=== PATIENT | male | born 1960 | race Hispanic/Latino ===

== ENCOUNTER 2017-06-26 09:39 | Inpatient (IN) | payer OTHER ==
[~2017-06-26] VITALS: Ht 185.4 cm; Wt 103.0 kg
[~2017-06-26 09:39] MED LIST: EXFORGE 5 MG-161 TAB PO; GLYBURIDE2.5 MG PO; GLYBURIDE5 MG PO; JANUMET 1000 MG1 TAB PO; JANUVIA 100MG100 MG PO; JANUVIA 50MG50 MG PO; NORVASC 10MG10 MG PO; TENORMIN 12.512.5 MG PO; VYTORIN 10 MG-21 TAB PO
--- NOTE | 2017-06-26 10:55 | ED GENERAL ADULT ---
History of Present Illness General Chief Complaint: General Adult Stated Complaint: PT STATES" MY GROIN IS SWOLLEN AND PAINFUL" Source: patient, old records Exam Limitations: no limitations Vital Signs & Intake/Output Vital Signs & Intake/Output Vital Signs Date Time Temp Pulse Resp B/P B/P Pulse O2 O2 Flow FiO2 Mean Ox Delivery Rate 06/26 0951 97.3 100 16 144/74 98 Room Air Allergies Coded Allergies: NO KNOWN ALLERGIES (03/11/15) Reconcile Medications Amlodipine (Norvasc 10MG) 10 MG TAB 10 MG PO DAILY bp Atenolol (Tenormin 12.5MG Tab (1/2 Of 25MG)) 12.5 MG HTAB 50 MG PO DAILY hypertension Sitagliptin Phosphate (Januvia) 100 MG TAB 1 TAB PO DAILY DM Triage Note: 56M WITH SWELLING TO GROIN AND SCROTUM, OBSERVABLE THROUGH PANTS X1 WEEK. HX EPIDIDYMITIS. DENIES SWELLING TO PENIS OR DISCHARGE, DENIES DYSURIA OR HEMATURIA. PAIN 3/10, NOT ABLE TO VISUALIZE SITE IN TRIAGE. AFEBRILE Triage Nurses Notes Reviewed? yes Onset: 1 month Duration: week(s):, constant, continues in ED, getting worse Timing: recent history Injury Environment: home Severity: severe Modifying Factors: Worsens With: movement. HPI: 1 month prior to admission patient complains of increasing swelling to his lower extremities and eventually his scrotum. He denies fever chills nausea vomiting diarrhea abdominal pain chest pain shortness breath headache dysuria rash bleeding, Past History Travel History Traveled to [place] past 21 day No Medical History Any Pertinent Medical History? 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 No Review of Systems Review of Systems Constitutional: Reports: no symptoms. EENTM: Reports: no symptoms. Respiratory: Reports: no symptoms. Cardiovascular: Reports: see HPI, edema. GI: Reports: see HPI, bloating, distention. Genitourinary: Reports: see HPI. Musculoskeletal: Reports: no symptoms. Skin: Reports: no symptoms. Neurological/Psychological: Reports: no symptoms. Hematologic/Endocrine: Reports: no symptoms. Immunologic/Allergic: Reports: no symptoms. All Other Systems: Reviewed and Negative Physical Exam Physical Exam General Appearance: well developed/nourished, alert, awake, anxious, mild distress, obese Head: atraumatic, normal appearance Eyes: Bilateral: normal appearance, PERRL, EOMI. Ears, Nose, Throat: normal pharynx, normal ENT inspection, hearing grossly normal Neck: normal inspection, supple, full range of motion, no midline tenderness Respiratory: normal breath sounds, chest non-tender, no respiratory distress, quiet respiration, decreased breath sounds Cardiovascular: regular rate/rhythm, normal peripheral pulses, norml femoral pulses equa Peripheral Pulses: 4+ carotid (R), 4+ carotid (L) Gastrointestinal: normal bowel sounds, soft, non-tender, no organomegaly Back: normal inspection, normal range of motion Extremities: pedal edema, swelling Neurologic/Psych: no motor/sensory deficits, awake, alert, oriented x 3, normal gait, normal mood/affect, 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 Skin: intact, normal color, warm/dry Lymphatic: no anterior cervical dale Core Measures ACS in differential dx? No CVA/TIA Diagnosis: No Sepsis Present: No Sepsis Focused Exam Completed? No Progress Differential Diagnoses I considered the following diagnoses in my evaluation of the patient: Lymphedema volume overload CHF acute renal failure Plan of Care: Orders Procedure Date/time Status Renal Dialysis Diet 06/26 D Active URINE LYTES, SPOT 06/26 1516 Active URINALYSIS 06/26 1516 Active Patient Data 06/26 1331 Active TYPE & SCREEN (NOT X-MATCH) 06/26 1305 Complete Patient Data 06/26 1252 Active OXYGEN SETUP (GEN) 06/26 1217 Active Saline Lock 06/26 1217 Active Admit to inpatient 06/26 1217 Active Vital Signs 06/26 1217 Active Activity/Ambulation 06/26 1217 Active Code Status 06/26 1217 Active Alarcon, Insertion/Removal/Asses 06/26 121 Active CULTURE,URINE 06/26 121 Active HIV (Reflex to HIVCQ) 06/26 1120 Complete HEPATITIS PANEL 06/26 1120 Complete TROPONIN LEVEL 06/26 1039 Complete MAGNESIUM 06/26 1039 Complete COMPREHENSIVE METABOLIC PANEL 06/26 1039 Complete CBC WITHOUT DIFFERENTIAL 06/26 1039 Complete B-TYPE NATRIURETIC PEP (BNP) 06/26 1039 Complete EKG 06/26 1039 Active Intake & Output 06/26 0953 Active Lab Add-on Test 06/26 UNK Active Laboratory Tests 06/26/17 1120: Anion Gap 22 H, Estimated GFR 5 L, BUN/Creatinine Ratio 10.2, Glucose 147 H, Calcium 5.8 *L, Magnesium 1.5 L, Total Bilirubin 0.3, AST 10 L, ALT 32, Alkaline Phosphatase 84, Troponin I 0.07, Tce-B-Qlpndkxdlex Pept 11109 H, Total Protein 6.1 L, Albumin 3.0 L, Globulin 3.1, Albumin/Globulin Ratio 1.0 L, CBC w Diff MAN DIFF ORDERED, RBC 2.38 L, MCV 71.9 L, MCH 21.8 L, RDW 17.9 H, MPV 9.0, Gran % 87.2 H, Lymphocytes % 6.6 L, Monocytes % 4.3, Eosinophils % 1.6, Basophils % 0.3, Absolute Granulocytes 8.7 H, Absolute Lymphocytes 0.7 L, Absolute Monocytes 0.4, Absolute Eosinophils 0.2, Absolute Basophils 0, Platelet Estimate ADEQUATE, Hypochromic-Microcytic 3+, Poikilocytosis 3+, Basophilic Stippling RARE, Anisocytosis 3+, Ovalocytes RARE, PUBS MCHC 30.4 L, Hepatitis A IgM Ab NONREACTIVE, Hep Bs Antigen NONREACTIVE, Hep B Core IgM Ab Conf NONREACTIVE, Hepatitis C Antibody NONREACTIVE, HIV 1&2 Ab Western Blot NONREACTIVE Microbiology 06/26 1211 URINE ROUT: Urine Culture - ORD Diagnostic Imaging: Viewed by Me: Radiology Read. Discussed w/RAD: Radiology Read. Radiology Impression: 1. Diffuse prominent soft tissue anasarca, small volume intra-abdominal and pelvic ascites, retroperitoneal edema and bilateral small pleural effusions are seen, consistent with patient's volume overload status. 2. Colonic diverticulosis with no evidence of acute diverticulitis. 3. Moderate atherosclerotic vascular disease. 4. Densely calcified granuloma left lower lobe, unchanged. CXR Impression: Findings are suggestive of mild/evolving pulmonary edema. Initial ED EKG: normal axis, normal intervals, normal p-waves, normal QRS complex, normal sinus rhythm, nonspecific ST T wave chg Prior EKG: changed Rhythm Strip: normal sinus rhythm Departure Departure Time of Disposition: 1218 Disposition: STILL A PATIENT Condition: Stable Clinical Impression Primary Impression: Acute renal failure Secondary Impressions: Anasarca associated with disorder of kidney, Anemia Referrals: Jony MARQUES,Ej Cantu (PCP/Family) Departure Forms: Customer Survey General Discharge Information Admission Note Spoke With: Berry Gongora MD Documentation of Exam: Documentation of any treatments & extenuating circumstances including Concerns Regarding Discharge (functional status, medication knowledge or non-compliance, living conditions, etc.) that warrant an admission rather than observation: Renal evaluation serial lab exam medication adjustment Alarcon catheter continuing care discharge planning Critical Care Note Critical Care Note Critical Care Time: 30-74 min (35)
[2017-06-26 11:31] LABS: ABSOLUTE BASOPHIL COUNT 0 /CUMM (0.0-0.2); ABSOLUTE LYMPH COUNT 0.7 /CUMM (1.2-3.4); BASOPHIL % 0.3 % (0.0-2.0); MEAN CORPUSCULAR HGB 21.8 PG (27.0-31.0); RBC DISTRIBUTION WIDTH 17.9 % (11.5-14.5); RED BLOOD CELL CT 2.38 /CUMM (4.70-6.10)
[2017-06-26 11:37] LABS: ABSOLUTE EOSINOPHIL COUNT 0.2 /CUMM (0.0-0.7); ABSOLUTE GRANULOCYTE CT 8.7 /CUMM (1.4-6.5); ABSOLUTE MONOCYTE COUNT 0.4 /CUMM (0.10-0.60); EOSINOPHIL % 1.6 % (0-5); GRANULOCYTE % 87.2 % (42.2-75.2); MEAN CORPUSCULAR HGB CONC 30.4 G/DL (33.0-37.0); MEAN CORPUSCULAR VOLUME 71.9 FL (80.0-94.0); PLATELET COUNT 301 /CUMM (130-400); WHITE BLOOD CELL COUNT 9.9 /CUMM (4.8-10.8)
[2017-06-26 11:45] LABS: HEMATOCRIT 17.1 % (42-52)
--- NOTE | 2017-06-26 12:38 | RADIOLOGY REPORT ---
EXAMINATION: CR PORTABLE CHEST CLINICAL INFORMATION: Peripheral edema. History of chronic renal insufficiency, diabetes mellitus. Presumptive diagnosis of CHF. COMPARISON: Chest x-ray dated 03/11/2015. CT scan of the chest dated 03/12/2015. TECHNIQUE: Portable AP semierect view of the chest was obtained. FINDINGS: The cardiomediastinal silhouette is borderline enlarged, likely related to the AP technique of the film. Lungs bilaterally are symmetrically expanded and demonstrate slight central vascular congestion and perihilar reticular prominence, possibly due to mild/evolving pulmonary edema. No focal consolidation, effusion or pneumothorax is seen. Bony structures are unremarkable. IMPRESSION: Findings are suggestive of mild/evolving pulmonary edema.
--- NOTE | 2017-06-26 13:47 | CT SCAN REPORT ---
EXAMINATION: CT ABDOMEN AND PELVIS WITHOUT CONTRAST CLINICAL INFORMATION: Progressive anasarca with acute on chronic renal failure. Acute renal failure. COMPARISON: CT scan of the chest dated 03/12/2015. TECHNIQUE: Multidetector volumetric imaging was performed from the superior aspect of the liver through the pubic symphysis. Sagittal and coronal reformatted images were obtained on the technologist workstation. DLP: 1111.44 mGy-cm. FINDINGS: LUNG BASES: There are small bilateral layering pleural effusions with associated bilateral lower lobe atelectatic changes. Densely calcified granuloma seen in the left lower lobe. LIVER, GALLBLADDER, AND BILIARY TREE: The liver is normal in size, shape, and attenuation. No focal hepatic lesion on noncontrast imaging. No biliary ductal dilatation is present. There is new small volume ascites in the abdomen around the liver. The gallbladder is partially distended and is mildly thick-walled with pericholecystic edema seen, most likely secondary to the intra-abdominal ascites. PANCREAS: There is a small amount of peripancreatic edema seen, extending into the perinephric space, nonspecific, but presumably related to patient's volume overload status. SPLEEN: Unremarkable. ADRENAL GLANDS: Both adrenal glands are mildly hypertrophied with mild surrounding indistinctness of the fat. KIDNEYS AND URETERS: The kidneys are normal in size, shape, and attenuation. No hydronephrosis, hydroureter, or calculi seen. No perinephric stranding. BLADDER: Unremarkable. PELVIC VISCERA: Unremarkable. GASTROINTESTINAL TRACT: The small bowel loops are decompressed and unremarkable. Multiple scattered sigmoid colonic diverticula are seen with no evidence of acute diverticulitis. A few other scattered colonic diverticula are also seen, including right-sided diverticula. The colon is otherwise unremarkable. The appendix is unremarkable. ABDOMINAL WALL: There is diffuse prominent anasarca in the soft tissues. There is dilatation of the left inguinal ring, containing fat only, consistent with a small direct inguinal hernia. LYMPH NODES, VASCULAR: No abdominal or pelvic adenopathy is seen. There is a small volume of free fluid in the abdomen and pelvis. Atherosclerotic calcifications of the vessels is noted, including the VIV. OSSEOUS STRUCTURES: Several scattered sclerotic bone densities are seen in the pelvis, most consistent with benign bone islands. Multilevel degenerative changes are seen in the lower thoracic and in the mid and lower lumbar spine. IMPRESSION: 1. Diffuse prominent soft tissue anasarca, small volume intra-abdominal and pelvic ascites, retroperitoneal edema and bilateral small pleural effusions are seen, consistent with patient's volume overload status. 2. Colonic diverticulosis with no evidence of acute diverticulitis. 3. Moderate atherosclerotic vascular disease. 4. Densely calcified granuloma left lower lobe, unchanged.
--- NOTE | 2017-06-26 14:05 | History & Physical ---
April MARQUES,[facility] 06/26/17 1405: General Information and HPI MD Statement: I have seen and personally examined SHANI BERNAL and documented this H&P. The patient is a 56 year old M who presented with a patient stated chief complaint of [Leg and scrotal swelling]. 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 He presented with a one-month history of gradually worsening lower extremity swelling which progressed to involve the scrotum and lower abdomen. One month ago prior to onset of symptoms patient reported to have an upper respiratory infection with nasal congestion and rhinorrhea that resolved after 3 days. He subsequently started developing leg swelling starting in his feet that gradually progressed to involve his thighs and lower abdomen including his scrotum. He denied fevers, chills, fatigue, joint pains, dysuria, urethral discharge or change in his urine volume or color over this period. He denied abdominal pains, nausea or vomiting, diarrhea or bloody stools. He did note mild intermittent coughing since one month prior but denied wheeze, chest pain, difficulty breathing, palpitations, lightheadedness or syncope. He denies any recent change in his medications or using any yrww-ehn-iexaeyn medications. He denies headaches, numbness of any part of the body or weakness. He states that he feels fine except for slight discomfort in the scrotum due to massive scrotal edema which makes it difficult for him to wear his pants. Of note patient has chronic kidney disease and previous baseline creatinine was around 2.0. Allergies/Medications Allergies: Coded Allergies: NO KNOWN ALLERGIES (NONE 06/27/17) Home Med list Amlodipine (Norvasc 10MG) 10 MG TAB 10 MG PO DAILY bp Atenolol (Tenormin 12.5MG Tab (1/2 Of 25MG)) 12.5 MG HTAB 50 MG PO DAILY hypertension Sitagliptin Phosphate (Januvia) 100 MG TAB 1 TAB PO DAILY DM Past History Travel History Traveled to [place] past 21 day No Medical History Neurological: NONE EENT: NONE Cardiovascular: hypertension Respiratory: NONE Gastrointestinal: NONE Hepatic: NONE Renal: NONE Musculoskeletal: NONE Psychiatric: NONE Endocrine: diabetes Blood Disorders: NONE Cancer(s): 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 Exam & Diagnostic Data Last 24 Hrs of Vital Signs/I&O Vital Signs Date Time Temp Pulse Resp B/P B/P Pulse O2 O2 Flow FiO2 Mean Ox Delivery Rate 06/26 0951 97.3 100 16 144/74 98 Room Air Intake & Output 06/26 1600 06/26 0800 06/26 0000 Intake Total Output Total Balance Patient 235 lb Weight Weight Reported by Patient Measurement Method Physical Exam General Appearance Alert, Oriented X3, Cooperative, No Acute Distress Skin No Rashes, No Breakdown Skin Temp/Moisture Exam: Warm/Dry Sepsis Skin Exam (color): Normal for Ethnicity HEENT Atraumatic, PERRLA, EOMI, Mucous Membr. moist/pink Neck Supple, No JVD, No thryomegaly, +2 Carotid Pulse wo Bruit Lymphatic Cervical nl Cardiovascular Regular Rate, Normal S1, Normal S2, No Murmurs Lungs Clear to Auscultation, Normal Air Movement, REDUCED AIR ENTRY IN BOTH LUNG BASES Abdomen Normal Bowel Sounds, Soft, No Tenderness, No Hepatospenomegaly, No Masses, SACRAL EDEMA UP TO MID BACK Neurological Normal Speech, Strength at 5/5 X4 Ext, Normal Tone, Cranial Nerves 3-12 NL Extremities NEUROPATHIC ULCER ON LEFT SOLE OF FOOT Vascular Normal Pulses (DORSALIS PEDIS PULSE NORMAL), Pulses Symmetrical Diagnostic Data EKG Results Normal sinus rhythm. Heart rate [address] segment changes CXR Results Lungs bilaterally are symmetrically expanded and demonstrate slight central vascular congestion and perihilar reticular prominence, possibly due to mild/evolving pulmonary edema. No focal consolidation, effusion or pneumothorax is seen. Bony structures are unremarkable. IMPRESSION: Findings are suggestive of mild/evolving pulmonary edema. Other Results CT abdomen and pelvis shows prominent soft tissue anasarca small volume intra- abdominal ascites and retroperitoneal edema and bilateral small pleural effusions. 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 He presented with a one-month history of worsening anasarca and mild intermittent coughing. His vital signs are stable. However his creatinine is 10 and this is much worse than his previous baseline of around 2. He does appear to have an acute kidney injury in the setting of chronic kidney disease ( this likely represents progression of his diabetic kidney disease) He is fluid overloaded with mild pulmonary edema on chest X-ray. In addition he has anemia which could be mainly due to his chronic kidney disease with a component of hemodilution from fluid overload. A chronic GI bleed is also a possibility. He will be admitted to the ICU for close monitoring of his vital signs and diuresed aggressively with IV Lasix. We will Monitor his respiratory status as his chest x-ray showed mild pulmonary edema. He will be transfused with PRBCs. We will place him on fluid restriction and a renal dialysis diet. I spoke to nephrology garden consultant Pete Atwood MD and the plan is for aggressive diuresis and placement of an Jerome cath in the morning for hemodialysis. Problem list 1. Acute kidney injury on background chronic kidney disease vs end-stage renal disease * Admit to ICU for close monitoring * CT scan of his abdomen showed no sign of hydronephrosis or obstruction and the patient passes urine freely * Monitor fluid input and output closely * Alarcon catheter could not be placed due to massive scrotal and penile edema. Will consult urology to place a Alarcon catheter in the morning * Check bladder scan for post residual volume * Urine lytes, FENA * Send NAGA, ANCA, C3, C4 serology to investigate possible aetiology * His HIV and viral hepatitis panel screening was negative * Patient has metabolic acidosis and we will start him on PO Sodium bicarb 650 mg TID (Avoiding a bicarb drip as he is volume overloaded) * PO sevelemer 800 mg with meals * Replete magnesium X 1g * send labs for 25 OH vit D, Vit B12, folate, INR * Renal dialysis and diabetic diet * Consult IR for Ashcath placement in preparation for hemodialysis 2. Anasarca with fluid overload * Aggressive diuresis with IV lasix 40 mg Q 12 hours * Strict fluid input ouput charting * Daily weights * 1200 mls fluid restriction * Will order echocardiogram to review cardiac function as he did have a markedly elevated proBNP of [id number] (Albeit in the setting of renal failure which can give a spurious result) 3. Anemia-likely chronic * Rectal exam was guiac negative in the ER * Repeat stool guaic X2 more times * Send Iron studies * Transfuse with 1 unit PRBC * PLEASE GIVE IV LASIX 80 MG PUSH PRIOR TO BLOOD TRANSFUSION AND TRANSFUSE SLOWLY OVER [address] ATWOOD 3. Hypertension * Blood pressure is currently stable at 144/74 mmhg * Continue home medication of PO atenolol 12.5 mg daily and po amlodipine 10 mg daily 4. Diabetes mellitus * Hold januvia * Start novolog sliding scale low dose * ACCUCHEKS TIDAC * Watch for hypoglycemia due to renal failure and reduced insulin clearance * Patient has neuropathic ulcer on sole of left foot. Will apply xeroform dressing daily 5. DVT prophylaxis * SC heparin 5000 units Q 8 hrs 6. CODE STATUSfull code As Ranked By This Provider Problem List: 1. Anasarca associated with disorder of kidney 2. Anemia 3. Diabetes mellitus type 2 with complications 4. HTN (hypertension) 5. HLD (hyperlipidemia) 6. DVT prophylaxis 7. Full code status 8. Acute renal failure Core Measures/Misc (02/19) Acute Coronary Syndrome ACS Diagnosis: No Congestive Heart Failure Congestive Heart Failure Diagnosis No Cerebrovascular Accident CVA/TIA Diagnosis: No VTE (View Protocol) VTE Risk Factors Acute Medical Illness No Mechanical VTE Prophylaxis d/t N/A MechProphylax Ordered No VTE Pharm Prophylaxis d/t NA PharmProphylax ordered Sepsis (View protocol) Sepsis Present: No Kaela Parr MD 06/27/17 0806: Attending MD Review Statement Attending Statement Attending MD Statement: examined this patient, discuss w/resident/PA/FIELD ARTILLERY TARGETING TECHNICIAN, agreed w/resident/PA/FIELD ARTILLERY TARGETING TECHNICIAN, reviewed EMR data (avail), discussed with nursing, reviewed images
--- NOTE | 2017-06-26 18:23 | Cons- Nephrology ---
See Addendum General Information and HPI Consulting Request Date of Consult: 06/26/17 Requested By: Tessa Nunes MD Reason for Consult: Severe CKD/?AYLEEN Source of Information: patient, old records Exam Limitations: no limitations History of Present Illness: I have been asked to see this 56-year-old male because of severe renal failure. The patient presented to the emergency department today with a one to two-week history of rapidly increasing edema involving his lower extremities and genitals. He claims that he has had some degree of edema for at least several months but that it had markedly worsened recently. There is a history of chronic kidney disease with a serum creatinine of approximately 2.2 mg percent and what appeared to be high-grade proteinuria back in 2014 at which time he was referred by his PCP for renal evaluation. Unfortunately, he never pursued that or any other appointment and has also not followed up with his PCP. He denies having any blood work done recently. In the emergency department he was found to have a serum creatinine of 10 mg percent with a low CO2 level (12) but normal serum potassium. He specifically denies any fatigue, loss of appetite, nausea, vomiting, diarrhea, shortness of breath or chest pain. His only complaint is the edema. He also denies being exposed to any contrast or taking any NSAIDs or antibiotics. His medication regimen is as noted below (amlodipine, atenolol, Januvia) which does not include any medications known to adversely affect renal function. He also denies any difficulty in urination or decrease in urine output. CT scan without contrast done in the emergency department showed anasarca with normal size kidneys and no evidence for hydronephrosis. Chest x- ray suggested mild CHF. 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 EENTM: Reports: no symptoms. Cardiovascular: Reports: see HPI, edema. Respiratory: Reports: no symptoms. GI: Reports: no symptoms. Genitourinary: Reports: see HPI. Musculoskeletal: Reports: no symptoms. Skin: Reports: no symptoms. 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 Other Medical Hx: Charcot neuroarthropathy Surgical History Surgical History: non-contributory Family History Relations & Conditions If Any: FATHER FH: diabetes mellitus FH: HTN (hypertension) Psychosocial History Services at Home: None Smoking Status: Never Smoked ETOH Use: denies use Illicit Drug Use: denies illicit drug use Exam & Diagnostic Data Vital Signs and I&O Vital Signs Date Time Temp Pulse Resp B/P B/P Pulse O2 O2 Flow FiO2 Mean Ox Delivery Rate 06/27 1108 98.7 79 18 137/86 06/27 1108 98.7 79 18 137/86 06/27 1107 98.7 79 18 137/86 99 Room Air 06/27 0730 98.4 78 18 125/76 99 Room Air 06/27 0615 97.1 77 16 138/77 06/27 0415 77 16 135/88 97 Room Air 06/27 0324 97.5 77 20 133/87 97 Room Air 06/27 0255 97.1 78 16 139/87 97 Room Air 06/27 0020 84 133/82 06/26 2236 97.4 82 18 133/78 100 Room Air 06/26 2016 96.8 81 16 135/83 98 Room Air 06/26 1850 96.8 80 18 114/66 99 Room Air 06/26 1710 80 16 110/66 95 Room Air 06/26 1535 97.6 77 18 122/74 99 Room Air Intake & Output 06/27 1600 06/27 0400 06/26 1600 06/26 0400 06/25 1600 06/25 0400 Intake Total 60 Output Total 1100 1150 Balance -1040 -1150 Intake, Oral 60 Output, Urine 1100 1150 Patient 235 lb Weight Weight Reported by Patient Measurement Method Physical Exam: General: Well-developed white male in no acute distress Skin: No rash or jaundice HEENT: Conjunctivae pale, sclerae anicteric, mucous membranes moist Neck: Without masses or thyromegaly, no supraclavicular or cervical adenopathy Chest: Clear to P&A Heart: Regular rate and rhythm without S3 or rub Abdomen: Soft and nontender without palpable masses or organomegaly Extremities: 4+ lower extremity edema to the thighs and scrotum and penis as well as presacral edema Neuro: Awake, alert and oriented without focal findings, no asterixis or myoclonus Assessment/Plan Assessment/Recommendations Assessment: 56-year-old man with severe renal failure and metabolic acidosis clinically manifested primarily by the development of anasarca including severe lower extremity, scrotal and penile edema. Despite the numbers, he is remarkably free of any uremic symptomatology and although the chest x-ray suggests pulmonary circuit volume overload, he denies any shortness of breath at rest, with exertion or any orthopnea. Imaging study shows no evidence of an obstructive process and there is nothing in his history to suggest a recent acute insult either hemodynamically or pharmacologically. I suspect that what we are seeing here is progression of underlying diabetic nephropathy to end-stage renal disease. I do not believe that he needs urgent hemodialysis at this moment but, barring any unexpected reversibility, this will likely become necessary within the next few days. Recommendations: 1. Alarcon catheter. 2. 24-hour urine for protein and creatinine 3. Serologic evaluation as discussed with medical house staff 4. Check PTH and 25-hydroxy vitamin D levels 5. Anemia workup including assessing for GI bleeding 6. Diet: 60 g protein, 2 g sodium, 2 g potassium, no concentrated sweets, 1200 mL fluid limit per day 7. Okay to transfuse 1-2 units of packed RBCs over 4 hours for each unit with Lasix coverage 80 mg IV for each unit 8. Would continue Lasix even after transfusions at a dose of 40-80 mg IV every 12 hours 9. Arrange for a tunneled dialysis catheter to be placed by IR tomorrow with goal of initiating dialysis the following day 10. Begin Nephro-Arabella 1 by mouth daily and sevelamer 800 mg by mouth 3 times a day with meals 11. I will order Epogen with dialysis starting this coming Monday Thank you. Will follow along with you.
[2017-06-26 18:41] LABS: PT 14.2 SEC (9.4-12.5)
[2017-06-27 00:25] LABS: ABSOLUTE BASOPHIL COUNT 0 /CUMM (0.0-0.2); ABSOLUTE EOSINOPHIL COUNT 0.1 /CUMM (0.0-0.7); MEAN CORPUSCULAR HGB 22.3 PG (27.0-31.0); MEAN CORPUSCULAR HGB CONC 30.4 G/DL (33.0-37.0); MEAN CORPUSCULAR VOLUME 73.3 FL (80.0-94.0); WHITE BLOOD CELL COUNT 8.7 /CUMM (4.8-10.8)
[2017-06-27 00:33] LABS: ABSOLUTE MONOCYTE COUNT 0.6 /CUMM (0.10-0.60); BASOPHIL % 0.5 % (0.0-2.0); EOSINOPHIL % 1.1 % (0-5); GRANULOCYTE % 80.3 % (42.2-75.2); MEAN PLATELET VOLUME 9.3 FL (7.4-10.4); PLATELET COUNT 291 /CUMM (130-400); RBC DISTRIBUTION WIDTH 18.3 % (11.5-14.5); RED BLOOD CELL CT 2.58 /CUMM (4.70-6.10)
[2017-06-27 00:39] LABS: HEMATOCRIT 18.9 % (42-52)
--- NOTE | 2017-06-27 07:34 | PN- Resident CRCU ---
See Addendum Subjective HPI/CRCU Issues: Severe Renal Failure, possible ESRD Metabolic Acidosis Severe Anemia 24 Hour Events: No acute overnight events. He is s/p two units PRBC. His repeat H&H continue to be low. Scheduled for a 3rd unit of PRBC. Also scheduled for tunnel AshCat for dialysis tomorrow. Had a frazier placed today by urology. Rested comfortably overnight. Patient was seen and examined. Does not offer any complaints. Objective Vital Signs & I&O Last 8 Hrs of Vitals and I&O: Intake & Output 06/27 1600 Intake Total 60 Output Total 400 Balance -340 Intake, Oral 60 Output, Urine 400 Exam General Appearance: no apparent distress, alert, awake, comfortable Head: atraumatic, normal appearance Respiratory: normal breath sounds, chest non-tender, lungs clear Cardiovascular: regular rate/rhythm Gastrointestinal: normal bowel sounds, soft, non-tender Extremities: bilateral 4+ lower extremity edema up to the groin. Cranial Nerves: normal hearing, normal speech Skin: ulcer on sole of left foot. Skin Temp/Moisture Exam: Warm/Dry Sepsis Skin Exam (color): Normal for Ethnicity Current Medications: Current Medications Sig/Bipin Start time Last Medication Dose Route Stop Time Status Admin Acetaminophen 650 MG Q6P PRN 06/26 1745 AC PO Amlodipine Besylate 10 MG DAILY 06/27 1000 AC PO Atenolol 12.5 MG DAILY 06/27 1000 AC 06/27 PO 1108 Fentanyl Citrate 0 .STK-MED ONE 06/27 1307 DC .ROUTE Furosemide 80 MG BID 06/27 1307 AC IV Furosemide 0 .STK-MED ONE 06/27 0256 DC IV Furosemide 0 .STK-MED ONE 06/26 1835 DC IV Furosemide 40 MG 7:30 AM, & 4:30 PM 06/26 1745 AC 06/27 IV 0309 Furosemide 80 MG ONCE PRN 06/26 1745 AC 06/26 IV 1843 Heparin Sodium 0 .STK-MED ONE 06/27 1229 DC (Porcine) IV Heparin Sodium 0 .STK-MED ONE 06/26 2300 DC (Porcine) .ROUTE Heparin Sodium 5,000 UNIT Q8 06/26 2200 DC 06/26 (Porcine) SC 2259 Insulin Aspart 0 TIDAC 06/27 0800 AC SC Lidocaine 0 .STK-MED ONE 06/27 1229 DC .ROUTE Magnesium Sulfate 1 GM ONCE ONE 06/27 1045 AC 06/27 Dextrose/Water 100 ML IV 06/27 1444 1102 Magnesium Sulfate 1 GM ONCE ONE 06/26 1745 DC 06/26 Dextrose/Water 100 ML IV 06/264 2148 Morphine Sulfate 2 MG Q4P PRN 06/26 174 AC IV Sevelamer Carbonate 800 MG WM 06/26 1745 AC 06/27 PO 1133 Sodium Bicarbonate 650 MG TID 06/26 1745 AC 06/27 PO 1108 Impression/Plan Impression/Problem List Impression: 56yo man with a past medical history of hypertension, hyperlipidemia, acute chronic injury on chronic kidney disease, and charcot's neuropathy with chronic left foot ulcer presented with a one-month history of worsening anasarca and mild intermittent coughing. On admission his creatinine was found to be 10 which has worsened from his previous baseline around 2. He does appear to have an acute kidney injury in the setting of chronic kidney disease with fluid overload. Assessment and Plan: Acute kidney injury on chronic kidney disease/?ESRD: * Continue ICU for close monitoring * CT scan of his abdomen 06/26 showed no sign of hydronephrosis or obstruction and the patient is able to pass urine freely * Monitor fluid input and output closely * Frazier was placed in today by Urology. * Patient complains of significant pain from his catheter. He wishes to have it removed. He was explained the importance of leaving it in. * Will provide analgesia with morphine 2mg q6 prn. * His HIV and viral hepatitis panel screening was negative. * Will follow serologies. * PO sevelemer 800 mg with meals * Replete electrolytes as necessary. * Appreciate Nephro recs. * Renal dialysis and diabetic diet * Scheduled for AshCath placement by IR today with dialysis tomorrow. Anasarca with fluid overload: * Aggressive diuresis with IV lasix 80 mg q12. * Strict I&Os * Daily weights * 1200 mls fluid restriction * Echocardiogram - pending. He had significantly elevated proBNP. His kidney disease could contribute to elevation due to reduced clearance. Anemia: * likely chronic secondary to CKD * s/p 2 units PRBC today. Repeat Hb is 6.8. * Scheduled for 3rd unit of pRBC today after placement of catheter. Will obtain repeat CBC after transfusion. * Will start Epogen with dialysis from tomorrow. * Stool guiac was negative. * Iron studies show low iron with normal Ferritin and TIBC History of Hypertension * Continue atenolol 12.5 mg daily and amlodipine 10 mg daily Diabetes mellitus * Hold januvia * Continue novolog sliding scale low dose * ACCUCHEKS TIDAC * Watch for hypoglycemia due to renal failure and reduced insulin clearance. Diet: * Renal/Diabetic diet * 60 g protein, 2 g sodium, 2 g potassium, no concentrated sweets, 1200 mL fluid limit per day DVT prophylaxis * SC heparin 5000 units Q 8 hrs CODE STATUSfull code Problem List: 1. Anemia Pain Ratin Tomorrow's Labs & Rationales: CBC, ICU bundle Plan DVT/Prophylaxis: mechanical
--- NOTE | 2017-06-27 08:07 | Admission Certification ---
Admission Certification Certification Statement - As attending physician, I certify that at the time of - admission, based on clinical presentation, severity of - symptoms, need for further diagnostic testing and - therapeutic interventions, and risk of adverse outcomes - without in-hospital treatment, in my clinical assessment, - this patient requires an acute hospital stay for a minimum - of two nights or longer. I have also considered psychsocial - factors such as support system, advanced age, financial - issues, cognitive issues, and failed out-patient treatments, - past re-admission history, safety of patient, and lack of - compliance as applicable. Specific rationale supporting this admission is: Renal failure. Patient needs ICU management and dialysis.
[2017-06-27 09:52] LABS: ABSOLUTE BASOPHIL COUNT 0 /CUMM (0.0-0.2); ABSOLUTE EOSINOPHIL COUNT 0.1 /CUMM (0.0-0.7); ABSOLUTE GRANULOCYTE CT 7.6 /CUMM (1.4-6.5); ABSOLUTE LYMPH COUNT 0.8 /CUMM (1.2-3.4); ABSOLUTE MONOCYTE COUNT 0.5 /CUMM (0.10-0.60); BASOPHIL % 0.4 % (0.0-2.0); GRANULOCYTE % 84.1 % (42.2-75.2); MEAN CORPUSCULAR HGB CONC 30.8 G/DL (33.0-37.0); MEAN CORPUSCULAR VOLUME 74.7 FL (80.0-94.0); PLATELET COUNT 289 /CUMM (130-400); RBC DISTRIBUTION WIDTH 17.5 % (11.5-14.5); RED BLOOD CELL CT 2.95 /CUMM (4.70-6.10); WHITE BLOOD CELL COUNT 9.1 /CUMM (4.8-10.8)
--- NOTE | 2017-06-27 13:05 | PN- Nephrology ---
Assessment/Plan Assessment: 1. Severe renal failure without overt uremia but with anasarca - suspect ESRD secondary to progressive diabetic nephropathy 2. Metabolic acidosis 3. Severe anemia primarily secondary to ESRD but other potential contributing factors need to be explored Suggestion: 1. Proceed with placement of a tunneled dialysis catheter today in anticipation of dialysis initiation tomorrow 2. Lasix 80 mg IV every 12 hours 3. Evaluation as outlined and discussed Subjective Subjective: Patient had Alarcon catheter placed by urology earlier today. He continues to deny any shortness of breath, chest pain, nausea or vomiting. No improvement in renal function based on blood work this morning. Objective Vital Signs and I&Os Vital Signs Date Time Temp Pulse Resp B/P B/P Pulse O2 O2 Flow FiO2 Mean Ox Delivery Rate 06/27 1108 98.7 79 18 137/86 06/27 1108 98.7 79 18 137/86 06/27 1107 98.7 79 18 137/86 99 Room Air 06/27 0730 98.4 78 18 125/76 99 Room Air 06/27 0615 97.1 77 16 138/77 06/27 0415 77 16 135/88 97 Room Air 06/27 0324 97.5 77 20 133/87 97 Room Air 06/27 0255 97.1 78 16 139/87 97 Room Air 06/27 0020 84 133/82 06/26 2236 97.4 82 18 133/78 100 Room Air 06/26 2015 96.8 81 16 135/83 98 Room Air 06/26 1850 96.8 80 18 114/66 99 Room Air 06/26 1710 80 16 110/66 95 Room Air 06/26 1535 97.6 77 18 122/74 99 Room Air Intake & Output 06/27 1600 06/27 0400 06/26 1600 06/26 0400 06/25 1600 06/25 0400 Intake Total 60 Output Total 1100 1150 Balance -1040 -1150 Intake, Oral 60 Output, Urine 1100 1150 Patient 235 lb Weight Weight Reported by Patient Measurement Method Physical Exam: General: Well-developed white male in no acute distress Skin: No rash or jaundice HEENT: Conjunctivae pale, sclerae anicteric, mucous membranes moist Neck: Without masses or thyromegaly, no supraclavicular or cervical adenopathy Chest: Clear to P&A Heart: Regular rate and rhythm without S3 or rub Abdomen: Soft and nontender without palpable masses or organomegaly Extremities: 4+ lower extremity edema to the thighs and scrotum and penis as well as presacral edema Neuro: Awake, alert and oriented without focal findings, no asterixis or myoclonus Results Pertinent Lab Results: Laboratory Tests 06/27 06/27 0937 0500 Chemistry Sodium (137 - 145 mmol/L) 146 H Potassium (3.5 - 5.1 mmol/L) 4.7 Chloride (98 - 107 mmol/L) 114 H Carbon Dioxide (22 - 30 mmol/L) 12 L Anion Gap (5 - 16) 20 H BUN (9 - 20 mg/dL) 98 H Creatinine (0.7 - 1.2 mg/dL) 10.2 *H Estimated GFR (>60 ml/min) 5 L Glucose (65 - 99 mg/dL) 112 H Hemoglobin A1c (4.2 - 5.8 %) Pending Cancelled Calcium (8.4 - 10.2 mg/dL) 6.4 L Phosphorus (2.5 - 4.5 mg/dL) 8.2 H Magnesium (1.6 - 2.3 mg/dL) 1.6 Total Bilirubin (0.2 - 1.3 mg/dL) 1.0 AST (17 - 59 U/L) 9 L ALT (21 - 72 U/L) 26 Albumin (3.5 - 5.0 g/dL) 3.0 L Hematology CBC w Diff MAN DIFF ORDERED Cancelled WBC (4.8 - 10.8 /CUMM) 9.1 Cancelled RBC (4.70 - 6.10 /CUMM) 2.95 L Cancelled Hgb (14.0 - 18.0 G/DL) 6.8 *L Cancelled Hct (42 - 52 %) 22.0 L Cancelled MCV (80.0 - 94.0 FL) 74.7 L Cancelled MCH (27.0 - 31.0 PG) 23.0 L Cancelled RDW (11.5 - 14.5 %) 17.5 H Cancelled Plt Count (130 - 400 /CUMM) 289 Cancelled MPV (7.4 - 10.4 FL) 9.0 Cancelled Gran % (42.2 - 75.2 %) 84.1 H Lymphocytes % (20.5 - 51.1 %) 8.9 L Monocytes % (1.7 - 9.3 %) 5.6 Eosinophils % (0 - 5 %) 1.0 Basophils % (0.0 - 2.0 %) 0.4 Absolute Granulocytes (1.4 - 6.5 /CUMM) 7.6 H Absolute Lymphocytes (1.2 - 3.4 /CUMM) 0.8 L Absolute Monocytes (0.10 - 0.60 /CUMM) 0.5 Absolute Eosinophils (0.0 - 0.7 /CUMM) 0.1 Absolute Basophils (0.0 - 0.2 /CUMM) 0 Platelet Estimate (ADEQUATE) VERIFIED BY SMEAR Polychromasia 1+ Hypochromic-Microcytic 2+ Poikilocytosis 2+ Anisocytosis 1+ Microcytic Cells 1+ Ovalocytes 1+ Grimes Cells 1+ PUBS MCHC (33.0 - 37.0 G/DL) 30.8 L Cancelled 06/27 06/26 0008 2220 Chemistry Sodium (137 - 145 mmol/L) 146 H Potassium (3.5 - 5.1 mmol/L) 4.8 Chloride (98 - 107 mmol/L) 114 H Carbon Dioxide (22 - 30 mmol/L) 13 L Anion Gap (5 - 16) 20 H BUN (9 - 20 mg/dL) 108 *H Creatinine (0.7 - 1.2 mg/dL) 10.0 *H Estimated GFR (>60 ml/min) 5 L Glucose (65 - 99 mg/dL) 131 H Calcium (8.4 - 10.2 mg/dL) 6.2 L Phosphorus (2.5 - 4.5 mg/dL) 7.8 H Magnesium (1.6 - 2.3 mg/dL) 1.7 Total Bilirubin (0.2 - 1.3 mg/dL) 0.6 AST (17 - 59 U/L) 18 ALT (21 - 72 U/L) 36 Albumin (3.5 - 5.0 g/dL) 3.0 L Hematology CBC w Diff MAN DIFF ORDERED WBC (4.8 - 10.8 /CUMM) 8.7 RBC (4.70 - 6.10 /CUMM) 2.58 L Hgb (14.0 - 18.0 G/DL) 5.7 *L Hct (42 - 52 %) 18.9 *L MCV (80.0 - 94.0 FL) 73.3 L MCH (27.0 - 31.0 PG) 22.3 L RDW (11.5 - 14.5 %) 18.3 H Plt Count (130 - 400 /CUMM) 291 MPV (7.4 - 10.4 FL) 9.3 Gran % (42.2 - 75.2 %) 80.3 H Lymphocytes % (20.5 - 51.1 %) 11.7 L Monocytes % (1.7 - 9.3 %) 6.4 Eosinophils % (0 - 5 %) 1.1 Basophils % (0.0 - 2.0 %) 0.5 Absolute Granulocytes (1.4 - 6.5 /CUMM) 7.0 H Segmented Neutrophils (42.2 - 75.2 %) 78 H Absolute Lymphocytes (1.2 - 3.4 /CUMM) 1.0 L Lymphocytes (20.5 - 51.1 %) 19 L Monocytes (1.7 - 9.3 %) 3 Absolute Monocytes (0.10 - 0.60 /CUMM) 0.6 Absolute Eosinophils (0.0 - 0.7 /CUMM) 0.1 Absolute Basophils (0.0 - 0.2 /CUMM) 0 Nucleated RBCs (0.0 - 0.0 /100WBC) 2 H Platelet Estimate (ADEQUATE) ADEQUATE Hypochromic-Microcytic 2+ Poikilocytosis 2+ Ovalocytes 2+ PUBS MCHC (33.0 - 37.0 G/DL) 30.4 L Urines Urinalysis MOD H Urine Color (YEL,AMB,STR) YEL Urine Clarity (CLEAR) CLDY H Urine pH (5.0 - 8.0) 5.5 Ur Specific [place] (1.001 - 1.035) 1.020 Urine Protein (NEG,<30 MG/DL) 100 H Urine Ketones (NEG) NEG Urine Nitrite (NEG) NEG Urine Bilirubin (NEG) NEG Urine Urobilinogen (0.1 - 1.0 EU/dl) 0.2 Ur Leukocyte Esterase (NEG) SMALL H Ur Microscopic SEDIMENT EXAMINED Urine RBC (0 - 5 /HPF) FEW H Urine WBC (0 - 2 /HPF) RARE Ur Epithelial Cells (NONE,FEW) RARE Urine Bacteria (NEG/NONE) RARE H Urine Hemoglobin (NEG) SMALL H Urine Glucose (N MG/DL) NEG 06/26 06/26 06/26 2220 1814 1120 Chemistry Sodium (137 - 145 mmol/L) 148 H Potassium (3.5 - 5.1 mmol/L) 4.5 Chloride (98 - 107 mmol/L) 114 H Carbon Dioxide (22 - 30 mmol/L) 12 L Anion Gap (5 - 16) 22 H BUN (9 - 20 mg/dL) 102 *H Creatinine (0.7 - 1.2 mg/dL) 10.0 *H Estimated GFR (>60 ml/min) 5 L BUN/Creatinine Ratio (7 - 25 %) 10.2 Glucose (65 - 99 mg/dL) 147 H Calcium (8.4 - 10.2 mg/dL) 5.8 *L Phosphorus (2.5 - 4.5 mg/dL) 7.3 H Magnesium (1.6 - 2.3 mg/dL) 1.5 L Iron (49 - 181 ug/dL) 24 L TIBC (261 - 462 ug/dL) 368 Ferritin (17.9 - 464 ng/mL) 24.6 Total Bilirubin (0.2 - 1.3 mg/dL) 0.3 AST (17 - 59 U/L) 10 L ALT (21 - 72 U/L) 32 Alkaline Phosphatase (< 127 U/L) 84 Troponin I (<0.11 ng/ml) 0.07 Beg-K-[id number] Pept (<125 pg/mL) 95830 H Total Protein (6.3 - 8.2 g/dL) 6.1 L Albumin (3.5 - 5.0 g/dL) 3.0 L Globulin (1.9 - 4.2 gm/dL) 3.1 Albumin/Globulin Ratio (1.1 - 2.2 %) 1.0 L Vitamin B12 (239 - 931 pg/mL) > 1000 H 25-OH Vitamin D Total (30 - 100 ng/ml) 13.0 L Folate (2.76 - 20.0 ng/mL) 15.3 Coagulation PT (9.4 - 12.5 SEC) 14.2 H INR (0.90 - 1.17) 1.36 H Hematology CBC w Diff MAN DIFF ORDERED WBC (4.8 - 10.8 /CUMM) 9.9 RBC (4.70 - 6.10 /CUMM) 2.38 L Hgb (14.0 - 18.0 G/DL) 5.2 *L Hct (42 - 52 %) 17.1 *L MCV (80.0 - 94.0 FL) 71.9 L MCH (27.0 - 31.0 PG) 21.8 L RDW (11.5 - 14.5 %) 17.9 H Plt Count (130 - 400 /CUMM) 301 MPV (7.4 - 10.4 FL) 9.0 Gran % (42.2 - 75.2 %) 87.2 H Lymphocytes % (20.5 - 51.1 %) 6.6 L Monocytes % (1.7 - 9.3 %) 4.3 Eosinophils % (0 - 5 %) 1.6 Basophils % (0.0 - 2.0 %) 0.3 Absolute Granulocytes (1.4 - 6.5 /CUMM) 8.7 H Absolute Lymphocytes (1.2 - 3.4 /CUMM) 0.7 L Absolute Monocytes (0.10 - 0.60 /CUMM) 0.4 Absolute Eosinophils (0.0 - 0.7 /CUMM) 0.2 Absolute Basophils (0.0 - 0.2 /CUMM) 0 Platelet Estimate (ADEQUATE) ADEQUATE Hypochromic-Microcytic 3+ Poikilocytosis 3+ Basophilic Stippling RARE Anisocytosis 3+ Ovalocytes RARE PUBS MCHC (33.0 - 37.0 G/DL) 30.4 L Immunology NAGA Titer ND Anti-Nuclear Antibody (NEG,1:40) NEG 1:40 IFA ASSAY ANCA Pending Complement C3 Pending Complement C4 Pending Serology Hepatitis A IgM Ab (NONREACTIVE) NONREACTIVE Hep Bs Antigen (NONREACTIVE) NONREACTIVE Hep B Core IgM Ab Conf (NONREACTIVE) NONREACTIVE Hepatitis C Antibody (NONREACTIVE) NONREACTIVE HIV 1&2 Ab Western Blot (NONREACTIVE) NONREACTIVE Urines Ur Random Creatinine (mg/dL) 58.0 Ur Random Sodium (30 - 90 mmol/L) 68 Ur Random Potassium (mmol/L) 20.8 Fraction Sodium Excret (<1% %) 7.9 H
--- NOTE | 2017-06-27 14:50 | ULTRASOUND REPORT ---
CLINICAL HISTORY: This patient is a 56 years old Male with ESRD, who presents to Interventional Radiology for placement of a tunneled central venous catheter for hemodialysis. PROCEDURES: 1. Real-time ultrasound-guided access into the right internal jugular vein after documentation of selected vessel patency, and permanent imaging storing in the patient records. 2. Placement of a tunneled 16-Fr 28 cm dual lumen central venous catheter. PHYSICIANS: Dr. Kateryna Kline (attending). MONITORING: The procedure was performed with continuous blood pressure, pulse oximetry as well as heart rate monitoring was performed by an independent registered nurse. MEDICATIONS: 1. Versed 0 mg, fentanyl 50 mcg IV were administered. 2. Lidocaine 1%, 3 mL SQ. 3. Lidocaine 1%, 10 mL with epinephrine SQ. CONTRAST: None FLUOROSCOPY TIME: 0.7 minutes NUMBER OF IMAGES: 3 COMPLICATIONS: None ESTIMATED BLOOD LOSS: <50 mL SPECIMENS: None IMPLANT: Split cath III double lumen hemodialysis catheter SITE MARKING: As part of the preprocedure verification policy, a site marking procedure was initiated. Due to the nature the procedure, the insertion site could not be predetermined thus invoking the policy of exemption to site laterality and marking. Insertion site marking was performed in the procedure room in conjunction with imaging confirmation. PROCEDURE NOTE: Informed consent was obtained from the patient prior to the procedure. During this process, the procedure and potential alternatives were explained along with the intended outcome and benefits. The risks of the procedure, including the possibility of an unsuccessful procedure, as well as the risk of not doing the procedure, were discussed. The patient was given the opportunity to ask questions regarding the procedure and appeared competent to make decisions. A signed consent form documenting this discussion was placed in the medical record. A time-out procedure was performed. The patient was placed supine on the fluoroscopy table. All elements of maximal sterile barrier technique followed including use of cap, mask, sterile gown, sterile gloves, a sterile full body drape and hand hygiene. Also followed skin preparation with 2% chlorhexidine for cutaneous antisepsis, and sterile ultrasound preparation with sterile gel and probe cover when applicable. Local anesthesia was administered to the access site with lidocaine. The right internal jugular vein was accessed using ultrasound with a micropuncture Micropuncture set. A 0.018 wire was advanced into the high right atrium for measuring purposes. The 0.018 wire was subsequently exchanged for a 0.035 J wire that was advanced to the IVC to maintain access during the tunneling process. Next, subcutaneous lidocaine was administered to the chest, and a subcutaneous tunnel that connects to the venotomy site was created using blunt dissection. The dialysis catheter was sized for the correct tunnel length. The catheter was then pulled through the tunnel. The sheath in the IJ was exchanged over the wire for sequential dilators and lastly a peel-away sheath. The inner dilator and J wire were removed, and the catheter was advanced through the sheath. The sheath was peeled away. The catheter was tested, flushed, packed with heparin and sutured to the skin with its tip in the high right atrium. A Biopatch and sterile dressing were applied. Dermabond was utilized to close the dermatotomy at the neck. The patient tolerated the procedure well. FINDINGS: 1. Patent right internal jugular vein. 2. Tip of catheter in the high right atrium. 3. Catheter flushes and aspirates very well with a 10 mL syringe. 4. No pneumothorax. IMPRESSION: Successful and uncomplicated placement of a tunneled hemodialysis catheter. PLAN: 1. The patient was stable after the procedure and was transferred to the interventional recovery area. The patient will be transferred to the floor. 2. The catheter may be used immediately. 3. The suture securing the catheter should remain in place for 4 weeks or greater.
--- NOTE | 2017-06-27 16:47 | Cons- Urology ---
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 He denied any urologic history of UTIs or kidney stones. He has never been to an Urologist for any voiding issues. He did not notice any change in his urination over the last month or any difficulty with voiding. There is a history of chronic kidney disease with a serum creatinine of 2.2. Upon admission , he was found to have a serum creatinine of 10. He specifically denies any fatigue, loss of appetite, nausea, vomiting, diarrhea, shortness of breath or chest pain. His only complaint is the edema. He also denies being exposed to any contrast or taking any NSAIDs or antibiotics. His medication regimen is amlodipine, atenolol, and Januvia. CT scan without contrast showed anasarca with normal size kidneys and no evidence for hydronephrosis, stones or masses. A frazier catheter was not able to be placed by the ICU team given his extreme genitalia swelling. 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 Allergies/Medications Allergies: Coded Allergies: NO KNOWN ALLERGIES (NONE 06/27/17) Home Med List: Amlodipine (Norvasc 10MG) 10 MG TAB 10 MG PO DAILY bp Atenolol (Tenormin 12.5MG Tab (1/2 Of 25MG)) 12.5 MG HTAB 50 MG PO DAILY hypertension Sitagliptin Phosphate (Januvia) 100 MG TAB 1 TAB PO DAILY DM Current Medications: Current Medications Sig/Bipin Start time Last Medication Dose Route Stop Time Status Admin Acetaminophen 650 MG Q6P PRN 06/26 1745 AC PO Amlodipine Besylate 10 MG DAILY 06/27 1000 AC PO Atenolol 12.5 MG DAILY 06/27 1000 AC 06/27 PO 1108 Fentanyl Citrate 0 .STK-MED ONE 06/27 1307 DC .ROUTE Furosemide 0 .STK-MED ONE 06/27 1432 DC IV Furosemide 80 MG BID 06/27 1307 AC 06/27 IV 1451 Furosemide 0 .STK-MED ONE 06/27 0256 DC IV Furosemide 0 .STK-MED ONE 06/26 1835 DC IV Furosemide 40 MG 7:30 AM, & 4:30 PM 06/26 1745 DC 06/27 IV 0309 Furosemide 80 MG ONCE PRN 06/26 1745 AC 06/26 IV 1843 Heparin Sodium 0 .STK-MED ONE 06/27 1229 DC (Porcine) IV Heparin Sodium 0 .STK-MED ONE 06/26 2300 DC (Porcine) .ROUTE Heparin Sodium 5,000 UNIT Q8 06/26 2200 DC 06/26 (Porcine) SC 2259 Hydromorphone HCl 0.4 MG ONCE ONE 06/27 1645 AC IV 06/27 1646 Insulin Aspart 0 TIDAC 06/27 0800 AC SC Lidocaine 0 .STK-MED ONE 06/27 1229 DC .ROUTE Magnesium Sulfate 1 GM ONCE ONE 06/27 1045 DC 06/27 Dextrose/Water 100 ML IV 06/27 1444 1102 Magnesium Sulfate 1 GM ONCE ONE 06/26 1745 DC 06/26 Dextrose/Water 100 ML IV 06/26 2144 2148 Morphine Sulfate 2 MG Q6P PRN 06/27 1445 AC IV Morphine Sulfate 0 .STK-MED ONE 06/27 1438 DC .ROUTE Morphine Sulfate 2 MG Q4P PRN 06/26 1745 AC 06/27 IV 1453 Multivitamins 1 TAB DAILY 06/27 1348 AC 06/27 PO 1451 Sevelamer Carbonate 800 MG WM 06/26 1745 AC 06/27 PO 1133 Sodium Bicarbonate 650 MG TID 06/26 1745 AC 06/27 PO 1108 Past History Medical History Blood Transfusion Hx: No Neurological: NONE EENT: NONE Cardiovascular: hypertension Respiratory: NONE Gastrointestinal: NONE Hepatic: NONE Renal: chronic kidney disease Musculoskeletal: NONE Psychiatric: NONE Endocrine: diabetes Blood Disorders: NONE Cancer(s): NONE MANAGER ANALYSIS/Reproductive: NONE Other Medical Hx: Charcot neuroarthropathy Surgical History Pertinent Surgical History: non-contributory Family History Relations & Conditions If Any: FATHER FH: diabetes mellitus FH: HTN (hypertension) Psychosocial History Where Do You Live? Home Who Do You Live With? self Services at Home: None Primary Language: Icelandic Smoking Status: Never Smoked ETOH Use: denies use Illicit Drug Use: denies illicit drug use Living Will? no Power of Resolute Professional/HCP? no Functional Ability ADLs Independent: dressing, eating, toileting, bathing. Ambulation: independent IADLs Independent: shopping, housework, transportation. Employment History Employment: Employed Retired? no Review of Systems Review of Systems Constitutional: Reports: no symptoms. EENTM: Reports: no symptoms. Cardiovascular: Reports: no symptoms. Respiratory: Reports: no symptoms. GI: Reports: no symptoms. Musculoskeletal: Reports: no symptoms. Skin: Reports: no symptoms. Neurological/Psychological: Reports: no symptoms. Hematologic/Endocrine: Reports: no symptoms. Immunologic/Allergic: Reports: no symptoms. Exam & Diagnostic Data Vital Signs and I&O Vital Signs Date Time Temp Pulse Resp B/P B/P Pulse O2 O2 Flow FiO2 Mean Ox Delivery Rate 06/27 1544 97.7 71 18 166/94 99 Room Air 06/27 1451 97.4 77 18 158/80 100 06/27 1403 97.4 78 18 132/79 99 Room Air 06/27 1108 98.7 79 18 137/86 06/27 1108 98.7 79 18 137/86 06/27 1107 98.7 79 18 137/86 99 Room Air 06/27 0730 98.4 78 18 125/76 99 Room Air 06/27 0615 97.1 77 16 138/77 06/27 0415 77 16 135/88 97 Room Air 06/27 0324 97.5 77 20 133/87 97 Room Air 06/27 0255 97.1 78 16 139/87 97 Room Air 06/27 0020 84 133/82 06/26 2236 97.4 82 18 133/78 100 Room Air 06/26 2016 96.8 81 16 135/83 98 Room Air 06/26 1850 96.8 80 18 114/66 99 Room Air 06/26 1710 80 16 110/66 95 Room Air Intake & Output 06/27 1600 06/27 0800 06/27 0000 06/26 1600 06/26 0800 06/26 0000 Intake Total 190 Output Total 800 1200 650 Balance -610 -1200 -650 Intake, IV 100 Intake, Oral 90 Output, Urine 800 1200 650 Patient 106.594 kg Weight Weight Reported by Patient Measurement Method Physical Exam General Appearance: no apparent distress, alert, awake, comfortable, obese Head: atraumatic, normal appearance Eyes: Bilateral: normal appearance. Ears, Nose, Throat: normal ENT inspection Neck: normal inspection Respiratory: no respiratory distress Gastrointestinal: soft, non-tender Rectal: deferred Extremities: swelling Neurologic/Psych: awake, alert, oriented x 3 Cranial Nerves: normal hearing, normal speech Skin: intact, normal color, warm/dry Reproductive: Normal male genitalia (sev swelling of scrotum/penis) Last 24 Hours of Labs: Laboratory Tests 06/27 06/27 0937 0500 Chemistry Sodium (137 - 145 mmol/L) 146 H Potassium (3.5 - 5.1 mmol/L) 4.7 Chloride (98 - 107 mmol/L) 114 H Carbon Dioxide (22 - 30 mmol/L) 12 L Anion Gap (5 - 16) 20 H BUN (9 - 20 mg/dL) 98 H Creatinine (0.7 - 1.2 mg/dL) 10.2 *H Estimated GFR (>60 ml/min) 5 L Glucose (65 - 99 mg/dL) 112 H Hemoglobin A1c (4.2 - 5.8 %) 6.7 H Cancelled Calcium (8.4 - 10.2 mg/dL) 6.4 L Phosphorus (2.5 - 4.5 mg/dL) 8.2 H Magnesium (1.6 - 2.3 mg/dL) 1.6 Total Bilirubin (0.2 - 1.3 mg/dL) 1.0 AST (17 - 59 U/L) 9 L ALT (21 - 72 U/L) 26 Albumin (3.5 - 5.0 g/dL) 3.0 L PTH Intact (18.4 - 80.1 pg/ML) 739.1 H Hematology CBC w Diff MAN DIFF ORDERED Cancelled WBC (4.8 - 10.8 /CUMM) 9.1 Cancelled RBC (4.70 - 6.10 /CUMM) 2.95 L Cancelled Hgb (14.0 - 18.0 G/DL) 6.8 *L Cancelled Hct (42 - 52 %) 22.0 L Cancelled MCV (80.0 - 94.0 FL) 74.7 L Cancelled MCH (27.0 - 31.0 PG) 23.0 L Cancelled RDW (11.5 - 14.5 %) 17.5 H Cancelled Plt Count (130 - 400 /CUMM) 289 Cancelled MPV (7.4 - 10.4 FL) 9.0 Cancelled Gran % (42.2 - 75.2 %) 84.1 H Lymphocytes % (20.5 - 51.1 %) 8.9 L Monocytes % (1.7 - 9.3 %) 5.6 Eosinophils % (0 - 5 %) 1.0 Basophils % (0.0 - 2.0 %) 0.4 Absolute Granulocytes (1.4 - 6.5 /CUMM) 7.6 H Absolute Lymphocytes (1.2 - 3.4 /CUMM) 0.8 L Absolute Monocytes (0.10 - 0.60 /CUMM) 0.5 Absolute Eosinophils (0.0 - 0.7 /CUMM) 0.1 Absolute Basophils (0.0 - 0.2 /CUMM) 0 Platelet Estimate (ADEQUATE) VERIFIED BY SMEAR Polychromasia 1+ Hypochromic-Microcytic 2+ Poikilocytosis 2+ Anisocytosis 1+ Microcytic Cells 1+ Ovalocytes 1+ Angela Cells 1+ PUBS MCHC (33.0 - 37.0 G/DL) 30.8 L Cancelled 06/27 06/26 0008 2220 Chemistry Sodium (137 - 145 mmol/L) 146 H Potassium (3.5 - 5.1 mmol/L) 4.8 Chloride (98 - 107 mmol/L) 114 H Carbon Dioxide (22 - 30 mmol/L) 13 L Anion Gap (5 - 16) 20 H BUN (9 - 20 mg/dL) 108 *H Creatinine (0.7 - 1.2 mg/dL) 10.0 *H Estimated GFR (>60 ml/min) 5 L Glucose (65 - 99 mg/dL) 131 H Calcium (8.4 - 10.2 mg/dL) 6.2 L Phosphorus (2.5 - 4.5 mg/dL) 7.8 H Magnesium (1.6 - 2.3 mg/dL) 1.7 Total Bilirubin (0.2 - 1.3 mg/dL) 0.6 AST (17 - 59 U/L) 18 ALT (21 - 72 U/L) 36 Albumin (3.5 - 5.0 g/dL) 3.0 L Hematology CBC w Diff MAN DIFF ORDERED WBC (4.8 - 10.8 /CUMM) 8.7 RBC (4.70 - 6.10 /CUMM) 2.58 L Hgb (14.0 - 18.0 G/DL) 5.7 *L Hct (42 - 52 %) 18.9 *L MCV (80.0 - 94.0 FL) 73.3 L MCH (27.0 - 31.0 PG) 22.3 L RDW (11.5 - 14.5 %) 18.3 H Plt Count (130 - 400 /CUMM) 291 MPV (7.4 - 10.4 FL) 9.3 Gran % (42.2 - 75.2 %) 80.3 H Lymphocytes % (20.5 - 51.1 %) 11.7 L Monocytes % (1.7 - 9.3 %) 6.4 Eosinophils % (0 - 5 %) 1.1 Basophils % (0.0 - 2.0 %) 0.5 Absolute Granulocytes (1.4 - 6.5 /CUMM) 7.0 H Segmented Neutrophils (42.2 - 75.2 %) 78 H Absolute Lymphocytes (1.2 - 3.4 /CUMM) 1.0 L Lymphocytes (20.5 - 51.1 %) 19 L Monocytes (1.7 - 9.3 %) 3 Absolute Monocytes (0.10 - 0.60 /CUMM) 0.6 Absolute Eosinophils (0.0 - 0.7 /CUMM) 0.1 Absolute Basophils (0.0 - 0.2 /CUMM) 0 Nucleated RBCs (0.0 - 0.0 /100WBC) 2 H Platelet Estimate (ADEQUATE) ADEQUATE Hypochromic-Microcytic 2+ Poikilocytosis 2+ Ovalocytes 2+ PUBS MCHC (33.0 - 37.0 G/DL) 30.4 L Urines Urinalysis MOD H Urine Color (YEL,AMB,STR) YEL Urine Clarity (CLEAR) CLDY H Urine pH (5.0 - 8.0) 5.5 Ur Specific [place] (1.001 - 1.035) 1.020 Urine Protein (NEG,<30 MG/DL) 100 H Urine Ketones (NEG) NEG Urine Nitrite (NEG) NEG Urine Bilirubin (NEG) NEG Urine Urobilinogen (0.1 - 1.0 EU/dl) 0.2 Ur Leukocyte Esterase (NEG) SMALL H Ur Microscopic SEDIMENT EXAMINED Urine RBC (0 - 5 /HPF) FEW H Urine WBC (0 - 2 /HPF) RARE Ur Epithelial Cells (NONE,FEW) RARE Urine Bacteria (NEG/NONE) RARE H Urine Hemoglobin (NEG) SMALL H Urine Glucose (N MG/DL) NEG 06/26 06/26 2220 1814 Chemistry Iron (49 - 181 ug/dL) 24 L TIBC (261 - 462 ug/dL) 368 Ferritin (17.9 - 464 ng/mL) 24.6 Coagulation PT (9.4 - 12.5 SEC) 14.2 H INR (0.90 - 1.17) 1.36 H Immunology ANCA Pending Complement C3 Pending Complement C4 Pending Urines Ur Random Creatinine (mg/dL) 58.0 Ur Random Sodium (30 - 90 mmol/L) 68 Ur Random Potassium (mmol/L) 20.8 Fraction Sodium Excret (<1% %) 7.9 H Imaging Results: Ct scan without any evidence of any kidney abnormalities. Absence of stones, hydronephrosis or masses. Only Anasarca noted. Assessment/Plan Assessment/Plan This is a 56yo male with a hx of DM, CKD, and Charcot neuropathy admitted with CHRIS on CKD of unclear etiology with no urologic issues other than severe scrotal and penile swelling resulting in difficult frazier placement. He had placement of frazier at the bedside with reduction of his penile edema with gentle squeezing and then an 18fr frazier placed with no return of urine. Atraumatic placement. Can be flushed but await urine output. No need for intervention for genitalia swelling other than scrotal support while in bed. Please do not remove catheter unless the patient is ambulatory with decreased genitalia swelling and no need for I/O's needed. FU prn. Consult Acknowledgment - Thank you for your consult request.
[2017-06-27 18:53] VITALS: BP 148/78
[2017-06-27 21:58] LABS: ABSOLUTE BASOPHIL COUNT 0.1 /CUMM (0.0-0.2); ABSOLUTE EOSINOPHIL COUNT 0.1 /CUMM (0.0-0.7); ABSOLUTE LYMPH COUNT 0.8 /CUMM (1.2-3.4); ABSOLUTE MONOCYTE COUNT 0.8 /CUMM (0.10-0.60); BASOPHIL % 0.4 % (0.0-2.0); EOSINOPHIL % 0.8 % (0-5); HEMATOCRIT 24.1 % (42-52); MEAN CORPUSCULAR HGB 23.9 PG (27.0-31.0); MEAN CORPUSCULAR HGB CONC 31.5 G/DL (33.0-37.0); MEAN CORPUSCULAR VOLUME 75.9 FL (80.0-94.0); MEAN PLATELET VOLUME 9.9 FL (7.4-10.4); PLATELET COUNT 309 /CUMM (130-400); RBC DISTRIBUTION WIDTH 19.3 % (11.5-14.5); RED BLOOD CELL CT 3.18 /CUMM (4.70-6.10); WHITE BLOOD CELL COUNT 11.7 /CUMM (4.8-10.8)
[2017-06-28] VITALS: BP 120/50
--- NOTE | 2017-06-28 07:00 | PN- Resident CRCU ---
Subjective HPI/CRCU Issues: Severe Renal Failure, possible ESRD Metabolic Acidosis Severe Anemia 24 Hour Events: No acute events overnight. Received 3rd unit pRBC yesterday with improvement in his H&H. Had an AshCath placed successfully yesterday. Patient was seen and examined this morning. Offers no complaints. He previously had significant penile pain secondary to Alarcon which he feels is better after the dilaudidd he has been receiving. Objective Vital Signs & I&O Last 8 Hrs of Vitals and I&O: . Exam General Appearance: no apparent distress, alert, awake, comfortable Head: atraumatic, normal appearance Respiratory: normal breath sounds, chest non-tender, lungs clear Cardiovascular: regular rate/rhythm Gastrointestinal: soft, non-tender Extremities: bilateral 4+ lower extremity edema Cranial Nerves: normal hearing, normal speech Skin: intact, normal color Skin Temp/Moisture Exam: Warm/Dry Sepsis Skin Exam (color): Normal for Ethnicity Current Medications: Current Medications Sig/Bipin Start time Last Medication Dose Route Stop Time Status Admin Acetaminophen 650 MG Q6P PRN 06/26 174 AC PO Amlodipine Besylate 10 MG DAILY 06/27 1000 AC PO Atenolol 12.5 MG DAILY 06/27 1000 AC 06/27 PO 1108 Epoetin Gómez 3,000 UNIT Monday .. 06/28 1000 AC IV Epoetin Gómez 2,000 UNIT Monday .. 06/28 0930 AC IV Fentanyl Citrate 0 .STK-MED ONE 06/27 1307 DC .ROUTE Furosemide 0 .STK-MED ONE 06/27 1432 DC IV Furosemide 80 MG BID 06/27 1307 AC 06/27 IV 2156 Furosemide 40 MG 7:30 AM, & 4:30 PM 06/26 1745 DC 06/27 IV 0309 Furosemide 80 MG ONCE PRN 06/26 1745 AC 06/26 IV 1843 Heparin Sodium 0 .STK-MED ONE 06/27 1229 DC (Porcine) IV Hydromorphone HCl 0 .STK-MED ONE 06/27 1649 DC .ROUTE Hydromorphone HCl 0.4 MG ONCE ONE 06/27 1645 DC 06/27 IV 06/27 1646 1651 Hydromorphone HCl 0.4 MG Q4P PRN 06/27 1645 AC IV Influenza Virus 0.5 ML ONCE ONE 06/27 1845 DC Vaccine IM 06/27 1846 Insulin Aspart 0 TIDAC 06/27 0800 AC SC Lidocaine 0 .STK-MED ONE 06/27 1229 DC .ROUTE Magnesium Sulfate 1 GM ONCE ONE 06/27 1045 DC 06/27 Dextrose/Water 100 ML IV 06/27 1444 1102 Morphine Sulfate 2 MG Q6P PRN 06/27 1445 DC IV Morphine Sulfate 0 .STK-MED ONE 06/27 1438 DC .ROUTE Morphine Sulfate 2 MG Q4P PRN 06/26 1745 AC 06/27 IV 1453 Multivitamins 1 TAB DAILY 06/27 1348 AC 06/27 PO 1451 Sevelamer Carbonate 800 MG WM 06/26 1745 AC 06/27 PO 1745 Sodium Bicarbonate 650 MG TID 06/26 1745 AC 06/27 PO 2200 Impression/Plan Impression/Problem List Impression: 56yo man with a past medical history of hypertension, hyperlipidemia, acute chronic injury on chronic kidney disease, and charcot's neuropathy with chronic left foot ulcer presented with a one-month history of worsening anasarca and mild intermittent coughing. On admission his creatinine was found to be 10 which has worsened from his previous baseline around 2. He does appear to have an acute kidney injury in the setting of chronic kidney disease with fluid overload. Assessment and Plan: Acute kidney injury on chronic kidney disease/?ESRD: * Continue ICU for close monitoring * CT scan of his abdomen 06/26 showed no sign of hydronephrosis or obstruction and the patient is able to pass urine freely * Monitor fluid input and output closely. * He has been diuresing well over the past 24 hours. * Alarcon was placed yesterday by urology. * Patient complained yesterday of significant pain from his catheter. He wished to have it removed. He was explained the importance of leaving it in. * Will continue analgesia with dilaudidd 0.4mg prn. He responds well to it. * His HIV and viral hepatitis panel screening was negative. * Will follow serologies. * PO sevelemer 800 mg with meals * Replete electrolytes as necessary. * Appreciate Nephro recs. * Renal dialysis and diabetic diet * Scheduled for AshCath placement by IR today with dialysis tomorrow. Anasarca with fluid overload: * Diuresis with PO Lasix 80mg daily from tomorrow. * Strict I&Os * Daily weights * 1200 mls fluid restriction * Echocardiogram - LVEF > 60%, severe left atrial dilatation, Moderate to severe tricuspid regurgitation, moderate pulmonary hypertension, dilated inferior vena cava. No regional wall motion abnormalities. Anemia: * likely chronic secondary to CKD * s/p 3 units PRBC total. Repeat Hb is 7.5. * Started on Epogen and IV iron with dialysis from today. * Stool guiac was negative. * Iron studies show low iron with normal Ferritin and TIBC History of Hypertension * Continue atenolol 12.5 mg daily and amlodipine 10 mg daily. * May hold amlodipine on dialysis days. Diabetes mellitus * Hold januvia * Continue novolog sliding scale low dose * ACCUCHEKS TIDAC * Watch for hypoglycemia due to renal failure and reduced insulin clearance. Diet: * Renal/Diabetic diet * 50 g protein, 2 g sodium, 2 g potassium, no concentrated sweets, 1200 mL fluid limit per day DVT prophylaxis * SC heparin 5000 units Q 8 hrs CODE STATUSfull code Problem List: 1. AYLEEN (acute kidney injury) Pain Ratin Tomorrow's Labs & Rationales: CBC, ICU bundle Plan DVT/Prophylaxis: mechanical
--- NOTE | 2017-06-28 07:43 | PN- CRCU ---
Subjective HPI/Critical Care Issues: The patient is awake and alert. An Jerome catheter was successfully placed yesterday. He is currently begining dialysis. He complains of feeling hungry. He denies any pain. A frazier catheter has successfully been placed. He denies any shortness of breath, cough or chest congestion. He remains afebrile. Objective Current Medications: Current Medications Sig/Bipin Start time Last Medication Dose Route Stop Time Status Admin Acetaminophen 650 MG Q6P PRN 06/26 1745 AC PO Amlodipine Besylate 10 MG DAILY 06/27 1000 AC PO Atenolol 12.5 MG DAILY 06/27 1000 AC 06/27 PO 1108 Fentanyl Citrate 0 .STK-MED ONE 06/27 1307 DC .ROUTE Furosemide 0 .STK-MED ONE 06/27 1432 DC IV Furosemide 80 MG BID 06/27 1307 AC 06/27 IV 2156 Furosemide 40 MG 7:30 AM, & 4:30 PM 06/26 1745 DC 06/27 IV 0309 Furosemide 80 MG ONCE PRN 06/26 1745 AC 06/26 IV 1843 Heparin Sodium 0 .STK-MED ONE 06/27 1229 DC (Porcine) IV Hydromorphone HCl 0 .STK-MED ONE 06/27 1649 DC .ROUTE Hydromorphone HCl 0.4 MG ONCE ONE 06/27 1645 DC 06/27 IV 06/27 1646 1651 Hydromorphone HCl 0.4 MG Q4P PRN 06/27 1645 AC IV Influenza Virus 0.5 ML ONCE ONE 06/27 1845 DC Vaccine IM 06/27 1846 Insulin Aspart 0 TIDAC 06/27 0800 AC SC Lidocaine 0 .STK-MED ONE 06/27 1229 DC .ROUTE Magnesium Sulfate 1 GM ONCE ONE 06/27 1045 DC 06/27 Dextrose/Water 100 ML IV 06/27 1444 1102 Morphine Sulfate 2 MG Q6P PRN 06/27 1445 DC IV Morphine Sulfate 0 .STK-MED ONE 06/27 1438 DC .ROUTE Morphine Sulfate 2 MG Q4P PRN 06/26 1745 AC 06/27 IV 1453 Multivitamins 1 TAB DAILY 06/27 1348 AC 06/27 PO 1451 Sevelamer Carbonate 800 MG WM 06/26 1745 AC 06/27 PO 1745 Sodium Bicarbonate 650 MG TID 06/26 1745 AC 06/27 PO 2200 Vital Signs & I&O Last 24 Hrs of Vitals and I&O: Vital Signs Date Time Temp Pulse Resp B/P B/P Pulse O2 O2 Flow FiO2 Mean Ox Delivery Rate 06/28 0400 97 Room Air Room Air 06/28 0000 98 Room Air Room Air 06/28 0000 97.0 70 12 120/50 98 Room Air Room Air 06/27 2000 94 Room Air Room Air 06/27 1853 98.1 75 18 148/78 98 Room Air Room Air 06/27 1847 97 Room Air Room Air 06/27 1722 97.4 71 16 147/79 97 Room Air 06/27 1544 97.7 71 18 166/94 99 Room Air 06/27 1451 97.4 77 18 158/80 100 06/27 1403 97.4 78 18 132/79 99 Room Air 06/27 1108 98.7 79 18 137/86 06/27 1108 98.7 79 18 137/86 06/27 1107 98.7 79 18 137/86 99 Room Air Intake & Output 06/28 0800 06/28 0000 06/27 1600 Intake Total 0 360 190 Output Total 660 3110 800 Balance -613 -5251 -610 Intake, Blood 300 Product Intake, IV 0 100 Intake, Oral 0 60 90 Number 0 0 Bowel Movements Output, Urine 660 3110 800 Patient 259 lb Weight Weight Bed scale Measurement Method Physical Exam General Appearance Alert, Oriented X3, Cooperative, No Acute Distress Skin No Rashes Skin Temp/Moisture Exam: Warm/Dry Sepsis Skin Exam (color): Normal for Ethnicity HEENT Atraumatic, PERRLA, EOMI, Mucous Membr. moist/pink Neck Supple, No JVD Cardiovascular Regular Rate, Normal S1, Normal S2, No Murmurs Lungs Clear to Auscultation, decreased breath sounds at lung bases Abdomen Normal Bowel Sounds, Soft, No Tenderness, No Hepatospenomegaly, No Masses, SACRAL EDEMA UP TO MID BACK Neurological Normal Speech, Strength at 5/5 X4 Ext, Normal Tone, Cranial Nerves 3-12 NL Extremities Neuropathic ulcer on sole of foot, generalized anasarca Impression/Plan Impression/Plan Impression/Plan: 1. Severe renal failure without overt uremia but with anasarca, suspect ESRD secondary to progressive diabetic nephropathy as per nephrology. 2. Metabolic acidosis secondary to renal failure. 3. Severe anemia without evidence of active bleeding, thought to be secondary to ESRD. 4. Severe scrotal edema, s/p frazier placement. 5. Mild leukocytosis without evidence of infection, may be stress induced. Recommendations: * Patient undergoing dialysis now. * Monitor I/Os. * Diuresis as per nephrology. * Advance diet MOHAN. * Need to consider endocrine evaluation. * Check pancultures today due to increasing WBC count. * Check a follow up portable CXR as well. * Frazier catheter to remain in place for now. * Monitor BP closely, continue the patient on meds for BP control. * Monitor for bleeding, guiac all stool. Will call GI if any evidence of active bleeding. * Discuss possibility of transfusion with dialysis team. * DVT prophylaxis with Alps due to severe anemia. Avoid SQ heparin for now.
[2017-06-28 07:50] LABS: ABSOLUTE BASOPHIL COUNT 0 /CUMM (0.0-0.2); ABSOLUTE EOSINOPHIL COUNT 0.1 /CUMM (0.0-0.7); ABSOLUTE GRANULOCYTE CT 10.7 /CUMM (1.4-6.5); ABSOLUTE LYMPH COUNT 0.7 /CUMM (1.2-3.4); ABSOLUTE MONOCYTE COUNT 0.8 /CUMM (0.10-0.60); BASOPHIL % 0.2 % (0.0-2.0); EOSINOPHIL % 1.1 % (0-5); GRANULOCYTE % 86.3 % (42.2-75.2); HEMATOCRIT 24.2 % (42-52); MEAN CORPUSCULAR HGB 23.7 PG (27.0-31.0); MEAN CORPUSCULAR HGB CONC 31.1 G/DL (33.0-37.0); MEAN CORPUSCULAR VOLUME 76.1 FL (80.0-94.0); MEAN PLATELET VOLUME 9.4 FL (7.4-10.4); PLATELET COUNT 299 /CUMM (130-400); RBC DISTRIBUTION WIDTH 18.5 % (11.5-14.5); RED BLOOD CELL CT 3.18 /CUMM (4.70-6.10); WHITE BLOOD CELL COUNT 12.4 /CUMM (4.8-10.8)
[2017-06-28 08:00] VITALS: BP 110/70
--- NOTE | 2017-06-28 12:20 | PN- Nephrology ---
Assessment/Plan Assessment: 1. Severe renal failure without overt uremia but with anasarca - suspect ESRD secondary to progressive diabetic nephropathy 2. Metabolic acidosis 3. Severe anemia secondary to CKD but also with low iron stores 4. Hyperphosphatemia with secondary hyperparathyroidism and hypovitaminosis D Suggestion: 1. Hemodialysis #1 today for 2 hours at 200 mL/m blood flow 2. Will dialyze again tomorrow for 2.5 hours and then on Monday for 3.0 hours 3. Epogen ordered 4. Will begin a course of parenteral iron with dialysis 5. Once phosphorus has come under control with the use of binders (sevelamer), will then begin therapy with vitamin D and a vitamin D analog 6. Evaluation still in progress 7. Assuming no recovery, will discuss renal replacement options with the patient and then prepare him for for permanent dialysis as appropriate Subjective Subjective: Patient feels about the same today with no new complaints or issues. Seen with his first hemodialysis treatment. Renal function remains the same and evaluation in progress. He has diuresed quite well with IV Lasix. Hemoglobin has improved with packed RBC transfusions. Phosphorus and PTH levels are quite high while 25-hydroxy vitamin D level is very low. Iron stores low. Objective Vital Signs and I&Os Vital Signs Date Time Temp Pulse Resp B/P B/P Pulse O2 O2 Flow FiO2 Mean Ox Delivery Rate 06/28 1107 78 145/71 06/28 1105 78 145/71 06/28 0800 97 Nasal 2.0L Cannula 06/28 0800 97.9 74 20 110/70 99 Nasal 2.0L Cannula 06/28 0400 97 Room Air Room Air 06/28 0000 98 Room Air Room Air 06/28 0000 97.0 70 12 120/50 98 Room Air Room Air 06/27 2000 94 Room Air Room Air 06/27 1853 98.1 75 18 148/78 98 Room Air Room Air 06/27 1847 97 Room Air Room Air 06/27 1722 97.4 71 16 147/79 97 Room Air 06/27 1544 97.7 71 18 166/94 99 Room Air 06/27 1451 97.4 77 18 158/80 100 06/27 1403 97.4 78 18 132/79 99 Room Air Intake & Output 06/28 1600 06/28 0400 06/27 1600 06/27 0400 06/26 1600 06/26 0400 Intake Total 0 360 190 Output Total 660 3110 1500 1150 Balance -660 -2750 -1310 -1150 Intake, Blood 300 Product Intake, IV 0 100 Intake, Oral 0 60 90 Number 0 0 Bowel Movements Output, Urine 660 3110 1500 1150 Patient 257 lb 259 lb 235 lb Weight Weight Bed scale Bed scale Reported by Patient Measurement Method Physical Exam: General: Well-developed white male in no acute distress Skin: No rash or jaundice HEENT: Conjunctivae pale, sclerae anicteric, mucous membranes moist Neck: Without masses or thyromegaly, no supraclavicular or cervical adenopathy Chest: Clear to P&A Heart: Regular rate and rhythm without S3 or rub Abdomen: Soft and nontender without palpable masses or organomegaly Extremities: 4+ lower extremity edema to the thighs and scrotum and penis as well as presacral edema Neuro: Awake, alert and oriented without focal findings, no asterixis or myoclonus Results Pertinent Lab Results: Laboratory Tests 06/28 06/28 0810 0609 Chemistry Sodium (137 - 145 mmol/L) 145 Potassium (3.5 - 5.1 mmol/L) 4.8 Chloride (98 - 107 mmol/L) 113 H Carbon Dioxide (22 - 30 mmol/L) 13 L Anion Gap (5 - 16) 20 H BUN (9 - 20 mg/dL) 108 *H Creatinine (0.7 - 1.2 mg/dL) 10.4 *H Estimated GFR (>60 ml/min) 5 L Glucose (65 - 99 mg/dL) 101 H Calcium (8.4 - 10.2 mg/dL) 6.7 L Phosphorus (2.5 - 4.5 mg/dL) 9.1 H Magnesium (1.6 - 2.3 mg/dL) 1.7 Total Bilirubin (0.2 - 1.3 mg/dL) 0.5 AST (17 - 59 U/L) 8 L ALT (21 - 72 U/L) 31 Albumin (3.5 - 5.0 g/dL) 2.9 L Hematology CBC w Diff MAN DIFF ORDERED WBC (4.8 - 10.8 /CUMM) 12.4 H RBC (4.70 - 6.10 /CUMM) 3.18 L Hgb (14.0 - 18.0 G/DL) 7.5 L Hct (42 - 52 %) 24.2 L MCV (80.0 - 94.0 FL) 76.1 L MCH (27.0 - 31.0 PG) 23.7 L RDW (11.5 - 14.5 %) 18.5 H Plt Count (130 - 400 /CUMM) 299 MPV (7.4 - 10.4 FL) 9.4 Gran % (42.2 - 75.2 %) 86.3 H Lymphocytes % (20.5 - 51.1 %) 5.8 L Monocytes % (1.7 - 9.3 %) 6.6 Eosinophils % (0 - 5 %) 1.1 Basophils % (0.0 - 2.0 %) 0.2 Absolute Granulocytes (1.4 - 6.5 /CUMM) 10.7 H Absolute Lymphocytes (1.2 - 3.4 /CUMM) 0.7 L Absolute Monocytes (0.10 - 0.60 /CUMM) 0.8 H Absolute Eosinophils (0.0 - 0.7 /CUMM) 0.1 Absolute Basophils (0.0 - 0.2 /CUMM) 0 Platelet Estimate (ADEQUATE) VERIFIED BY SMEAR Polychromasia 1+ Hypochromic-Microcytic 1+ Poikilocytosis 2+ Anisocytosis 1+ Microcytic Cells 1+ Ovalocytes 1+ [place] Cells 1+ Elliptocytes 1+ PUBS MCHC (33.0 - 37.0 G/DL) 31.1 L Serology Hep Bs Antibody (NONREACTIVE) NONREACTIVE 06/27 06/27 8417 5240 Chemistry Sodium (137 - 145 mmol/L) 146 H Potassium (3.5 - 5.1 mmol/L) 4.7 Chloride (98 - 107 mmol/L) 114 H Carbon Dioxide (22 - 30 mmol/L) 12 L Anion Gap (5 - 16) 20 H BUN (9 - 20 mg/dL) 98 H Creatinine (0.7 - 1.2 mg/dL) 10.2 *H Estimated GFR (>60 ml/min) 5 L Glucose (65 - 99 mg/dL) 112 H Hemoglobin A1c (4.2 - 5.8 %) 6.7 H Calcium (8.4 - 10.2 mg/dL) 6.4 L Phosphorus (2.5 - 4.5 mg/dL) 8.2 H Magnesium (1.6 - 2.3 mg/dL) 1.6 Total Bilirubin (0.2 - 1.3 mg/dL) 1.0 AST (17 - 59 U/L) 9 L ALT (21 - 72 U/L) 26 Albumin (3.5 - 5.0 g/dL) 3.0 L PTH Intact (18.4 - 80.1 pg/ML) 739.1 H Hematology CBC w Diff NO MAN DIFF REQ MAN DIFF ORDERED WBC (4.8 - 10.8 /CUMM) 11.7 H 9.1 RBC (4.70 - 6.10 /CUMM) 3.18 L 2.95 L Hgb (14.0 - 18.0 G/DL) 7.6 L 6.8 *L Hct (42 - 52 %) 24.1 L 22.0 L MCV (80.0 - 94.0 FL) 75.9 L 74.7 L MCH (27.0 - 31.0 PG) 23.9 L 23.0 L RDW (11.5 - 14.5 %) 19.3 H 17.5 H Plt Count (130 - 400 /CUMM) 309 289 MPV (7.4 - 10.4 FL) 9.9 9.0 Gran % (42.2 - 75.2 %) 85.0 H 84.1 H Lymphocytes % (20.5 - 51.1 %) 7.0 L 8.9 L Monocytes % (1.7 - 9.3 %) 6.8 5.6 Eosinophils % (0 - 5 %) 0.8 1.0 Basophils % (0.0 - 2.0 %) 0.4 0.4 Absolute Granulocytes (1.4 - 6.5 /CUMM) 10.0 H 7.6 H Absolute Lymphocytes (1.2 - 3.4 /CUMM) 0.8 L 0.8 L Absolute Monocytes (0.10 - 0.60 /CUMM) 0.8 H 0.5 Absolute Eosinophils (0.0 - 0.7 /CUMM) 0.1 0.1 Absolute Basophils (0.0 - 0.2 /CUMM) 0.1 0 Platelet Estimate (ADEQUATE) VERIFIED BY SMEAR Polychromasia 1+ Hypochromic-Microcytic 2+ Poikilocytosis 2+ Anisocytosis 1+ Microcytic Cells 1+ Ovalocytes 1+ [place] Cells 1+ PUBS MCHC (33.0 - 37.0 G/DL) 31.5 L 30.8 L 06/27 06/27 0500 0008 Chemistry Sodium (137 - 145 mmol/L) 146 H Potassium (3.5 - 5.1 mmol/L) 4.8 Chloride (98 - 107 mmol/L) 114 H Carbon Dioxide (22 - 30 mmol/L) 13 L Anion Gap (5 - 16) 20 H BUN (9 - 20 mg/dL) 108 *H Creatinine (0.7 - 1.2 mg/dL) 10.0 *H Estimated GFR (>60 ml/min) 5 L Glucose (65 - 99 mg/dL) 131 H Hemoglobin A1c Cancelled Calcium (8.4 - 10.2 mg/dL) 6.2 L Phosphorus (2.5 - 4.5 mg/dL) 7.8 H Magnesium (1.6 - 2.3 mg/dL) 1.7 Total Bilirubin (0.2 - 1.3 mg/dL) 0.6 AST (17 - 59 U/L) 18 ALT (21 - 72 U/L) 36 Albumin (3.5 - 5.0 g/dL) 3.0 L Hematology CBC w Diff Cancelled MAN DIFF ORDERED WBC (4.8 - 10.8 /CUMM) Cancelled 8.7 RBC (4.70 - 6.10 /CUMM) Cancelled 2.58 L Hgb (14.0 - 18.0 G/DL) Cancelled 5.7 *L Hct (42 - 52 %) Cancelled 18.9 *L MCV (80.0 - 94.0 FL) Cancelled 73.3 L MCH (27.0 - 31.0 PG) Cancelled 22.3 L RDW (11.5 - 14.5 %) Cancelled 18.3 H Plt Count (130 - 400 /CUMM) Cancelled 291 MPV (7.4 - 10.4 FL) Cancelled 9.3 Gran % (42.2 - 75.2 %) 80.3 H Lymphocytes % (20.5 - 51.1 %) 11.7 L Monocytes % (1.7 - 9.3 %) 6.4 Eosinophils % (0 - 5 %) 1.1 Basophils % (0.0 - 2.0 %) 0.5 Absolute Granulocytes (1.4 - 6.5 /CUMM) 7.0 H Segmented Neutrophils (42.2 - 75.2 %) 78 H Absolute Lymphocytes (1.2 - 3.4 /CUMM) 1.0 L Lymphocytes (20.5 - 51.1 %) 19 L Monocytes (1.7 - 9.3 %) 3 Absolute Monocytes (0.10 - 0.60 /CUMM) 0.6 Absolute Eosinophils (0.0 - 0.7 /CUMM) 0.1 Absolute Basophils (0.0 - 0.2 /CUMM) 0 Nucleated RBCs (0.0 - 0.0 /100WBC) 2 H Platelet Estimate (ADEQUATE) ADEQUATE Hypochromic-Microcytic 2+ Poikilocytosis 2+ Ovalocytes 2+ PUBS MCHC (33.0 - 37.0 G/DL) Cancelled 30.4 L 06/26 06/26 06/26 2251 2220 2220 Urines Urinalysis MOD H Urine Color (YEL,AMB,STR) YEL Urine Clarity (CLEAR) CLDY H Urine pH (5.0 - 8.0) 5.5 Ur Specific [place] Cbc Base (1.001 - 1.035) 1.020 Urine Protein (NEG,<30 MG/DL) 100 H Urine Ketones (NEG) NEG Urine Nitrite (NEG) NEG Urine Bilirubin (NEG) NEG Urine Urobilinogen (0.1 - 1.0 EU/dl) 0.2 Ur Leukocyte Esterase (NEG) SMALL H Ur Microscopic SEDIMENT EXAMINED Urine RBC (0 - 5 /HPF) FEW H Urine WBC (0 - 2 /HPF) RARE Ur Epithelial Cells (NONE,FEW) RARE Urine Bacteria (NEG/NONE) RARE H Urine Hemoglobin (NEG) SMALL H Ur Random Creatinine (mg/dL) Cancelled 58.0 Ur Random Sodium (30 - 90 mmol/L) 68 Ur Random Potassium (mmol/L) 20.8 Fraction Sodium Excret (<1% %) 7.9 H Urine Glucose (N MG/DL) NEG 06/26 06/26 1814 1120 Chemistry Sodium (137 - 145 mmol/L) 148 H Potassium (3.5 - 5.1 mmol/L) 4.5 Chloride (98 - 107 mmol/L) 114 H Carbon Dioxide (22 - 30 mmol/L) 12 L Anion Gap (5 - 16) 22 H BUN (9 - 20 mg/dL) 102 *H Creatinine (0.7 - 1.2 mg/dL) 10.0 *H Estimated GFR (>60 ml/min) 5 L BUN/Creatinine Ratio (7 - 25 %) 10.2 Glucose (65 - 99 mg/dL) 147 H Calcium (8.4 - 10.2 mg/dL) 5.8 *L Phosphorus (2.5 - 4.5 mg/dL) 7.3 H Magnesium (1.6 - 2.3 mg/dL) 1.5 L Iron (49 - 181 ug/dL) 24 L TIBC (261 - 462 ug/dL) 368 Ferritin (17.9 - 464 ng/mL) 24.6 Total Bilirubin (0.2 - 1.3 mg/dL) 0.3 AST (17 - 59 U/L) 10 L ALT (21 - 72 U/L) 32 Alkaline Phosphatase (< 127 U/L) 84 Troponin I (<0.11 ng/ml) 0.07 [id number] Pept (<125 pg/mL) 52657 H Total Protein (6.3 - 8.2 g/dL) 6.1 L Albumin (3.5 - 5.0 g/dL) 3.0 L Globulin (1.9 - 4.2 gm/dL) 3.1 Albumin/Globulin Ratio (1.1 - 2.2 %) 1.0 L Vitamin B12 (239 - 931 pg/mL) > 1000 H 25-OH Vitamin D Total (30 - 100 ng/ml) 13.0 L Folate (2.76 - 20.0 ng/mL) 15.3 Coagulation PT (9.4 - 12.5 SEC) 14.2 H INR (0.90 - 1.17) 1.36 H Hematology CBC w Diff MAN DIFF ORDERED WBC (4.8 - 10.8 /CUMM) 9.9 RBC (4.70 - 6.10 /CUMM) 2.38 L Hgb (14.0 - 18.0 G/DL) 5.2 *L Hct (42 - 52 %) 17.1 *L MCV (80.0 - 94.0 FL) 71.9 L MCH (27.0 - 31.0 PG) 21.8 L RDW (11.5 - 14.5 %) 17.9 H Plt Count (130 - 400 /CUMM) 301 MPV (7.4 - 10.4 FL) 9.0 Gran % (42.2 - 75.2 %) 87.2 H Lymphocytes % (20.5 - 51.1 %) 6.6 L Monocytes % (1.7 - 9.3 %) 4.3 Eosinophils % (0 - 5 %) 1.6 Basophils % (0.0 - 2.0 %) 0.3 Absolute Granulocytes (1.4 - 6.5 /CUMM) 8.7 H Absolute Lymphocytes (1.2 - 3.4 /CUMM) 0.7 L Absolute Monocytes (0.10 - 0.60 /CUMM) 0.4 Absolute Eosinophils (0.0 - 0.7 /CUMM) 0.2 Absolute Basophils (0.0 - 0.2 /CUMM) 0 Platelet Estimate (ADEQUATE) ADEQUATE Hypochromic-Microcytic 3+ Poikilocytosis 3+ Basophilic [place] RARE Anisocytosis 3+ Ovalocytes RARE PUBS MCHC (33.0 - 37.0 G/DL) 30.4 L Immunology NGAA Titer ND Anti-Nuclear Antibody (NEG,1:40) NEG 1:40 IFA ASSAY ANCA Pending Complement C3 Pending Complement C4 Pending Serology Hepatitis A IgM Ab (NONREACTIVE) NONREACTIVE Hep Bs Antigen (NONREACTIVE) NONREACTIVE Hep B Core IgM Ab Conf (NONREACTIVE) NONREACTIVE Hepatitis C Antibody (NONREACTIVE) NONREACTIVE HIV 1&2 Ab Western Blot (NONREACTIVE) NONREACTIVE
--- NOTE | 2017-06-28 12:21 | RADIOLOGY REPORT ---
EXAMINATION: XR PORTABLE CHEST CLINICAL INFORMATION: Pulmonary edema. Follow-up. COMPARISON: Chest x-ray dated 06/26/2017 and 03/11/2015. TECHNIQUE: Portable AP semierect view of the chest was obtained. FINDINGS: Right jugular large bore catheter is seen with tip in the high right atrium. The cardiomediastinal silhouette is within normal limits in size. Mild central vascular congestion is seen. No pulmonary edema is noted. Low lung volumes are seen with crowding of bronchovascular markings in the lung bases. No focal consolidation, effusion, or pneumothorax. Bony structures unremarkable. IMPRESSION: 1. Right jugular catheter tip in the high right atrium. No pneumothorax. 2. Low lung volumes. 3. Mild central vascular congestion. No evidence of pulmonary edema.
--- NOTE | 2017-06-28 12:38 | ECHOCARDIOGRAM REPORT ---
SHANI BERNAL Age: 56 : 1960 Gender: M Exam Date: 06/27/2017 11:12 Exam Location: ER Ht (in): 73 Wt (lb): 235 BSA: 2.37 BP: 125 / 76 Ordering Physician: Diamante Chen MD Referring Physician: Diamante Chen MD Technologist: Bert Preston JOHN Room Number: 8 Indications: STRUCTURAL HEART DISEASE Rhythm: Sinus Technical Quality: Fair FINDINGS Left Ventricle Left ventricular cavity size at the upper limits of normal. Mild concentric left ventricular hypertrophy. No obvious regional wall motion abnormalities. Normal left ventricular ejection fraction visually estimated at >60%. Normal left ventricular diastolic filling pattern for age. Right Ventricle Normal right ventricular size and function. Right Atrium Normal right atrial size. Left Atrium Moderate to severe left atrial dilatation. Mitral Valve Mild mitral annular calcification. Mitral valve mildly thickened. Trace mitral regurgitation. Aortic Valve Trileaflet aortic valve. Diffuse mild thickening of the aortic valve cusps with mildly reduced excursion. No hemodynamically significant aortic stenosis. No aortic regurgitation. Tricuspid Valve Structurally normal tricuspid valve. Moderate to severe tricuspid regurgitation. Moderate pulmonary hypertension. Right ventricular systolic pressure estimated to be elevated at 58 mmHg. Pulmonic Valve Pulmonic valve not well visualized, grossly normal. No pulmonic regurgitation. Pericardium No pericardial effusion. Great Vessels Normal size aortic root. Dilated inferior vena cava. CONCLUSIONS Left ventricular cavity size at the upper limits of normal. Mild concentric left ventricular hypertrophy. No obvious regional wall motion abnormalities. Normal left ventricular ejection fraction visually estimated at > 60%. Normal left ventricular diastolic filling pattern for age. Normal right ventricular size and function. Normal right atrial size. Moderate to severe left atrial dilatation. Trace mitral regurgitation. No hemodynamically significant aortic stenosis. Moderate to severe tricuspid regurgitation. Moderate pulmonary hypertension. Dilated inferior vena cava. Chase Cisneros M.D. (Electronically Signed) Final Date: 28 June 2017 12:37 MEASUREMENTS (Male / Female) Normal Values 2D ECHO LV Diastolic Diameter PLAX 5.9 cm 4.2 - 5.9 / 3.9 - 5.3 cm LV Systolic Diameter PLAX 3.6 cm 2.1 - 4.0 cm LV Fractional Shortening PLAX 39.0 % 25 - 46 % LV Ejection Fraction 2D Teich 68.6 % IVS Diastolic Thickness 1.3 cm LVPW Diastolic Thickness 1.0 cm LV Relative Wall Thickness 0.4 LVOT Diameter 2.1 cm Aortic Root Diameter 3.2 cm LA Systolic Diameter LX 4.5 cm 3.0 - 4.0 / 2.7 - 3.8 cm LA Volume 102.0 cm 18 - 58 / 22 - 52 cm Ascending Aorta Diameter 3.1 cm DOPPLER AV Peak Velocity 170.0 cm/s AV Peak Gradient 11.6 mmHg AV Mean Velocity 120.0 cm/s AV Mean Gradient 6.0 mmHg AV Velocity Time Integral 34.8 cm LVOT Peak Velocity 97.0 cm/s LVOT Peak Gradient 3.8 mmHg LVOT Mean Velocity 64.5 cm/s LVOT Mean Gradient 2.0 mmHg LVOT Velocity Time Integral 21.4 cm LVOT Stroke Volume 74.1 cm AV Area Cont Eq vti 2.1 cm AV Area Cont Eq pk 2.0 cm MV Peak Velocity 161.0 cm/s MV Peak Gradient 10.4 mmHg MV Mean Velocity 71.3 cm/s MV Mean Gradient 3.0 mmHg Mitral E Point Velocity 127.0 cm/s Mitral A Point Velocity 68.1 cm/s Mitral E to A Ratio 1.9 MV PHT Velocity 159.0 cm/s MV Deceleration [place] 850.0 cm/s MV Pressure Half Time 56.1 ms MV Area PHT 3.9 cm MV Deceleration Time 201.0 ms MR Peak Velocity 498.0 cm/s MR Peak Gradient 99.2 mmHg TR Peak Velocity 346.0 cm/s TR Peak Gradient 47.9 mmHg Right Atrial Pressure 10.0 mmHg Pulmonary Artery Systolic Pressu 57.9 mmHg Right Ventricular Systolic Press 57.9 mmHg PV Peak Velocity 117.0 cm/s PV Peak Gradient 5.5 mmHg PV Mean Velocity 75.5 cm/s PV Mean Gradient 3.0 mmHg PV Velocity Time Integral 26.9 cm LV E' Lateral Velocity 10.1 cm/s Mitral E to LV E' Lateral Ratio 12.6 LV E' Septal Velocity 8.4 cm/s Mitral E to LV E' Septal Ratio 15.2
[2017-06-28 14:54] LABS: ABSOLUTE BASOPHIL COUNT 0 /CUMM (0.0-0.2); ABSOLUTE EOSINOPHIL COUNT 0.1 /CUMM (0.0-0.7); ABSOLUTE GRANULOCYTE CT 9.4 /CUMM (1.4-6.5); ABSOLUTE LYMPH COUNT 0.5 /CUMM (1.2-3.4); ABSOLUTE MONOCYTE COUNT 0.6 /CUMM (0.10-0.60); BASOPHIL % 0.2 % (0.0-2.0); EOSINOPHIL % 0.7 % (0-5); GRANULOCYTE % 88.6 % (42.2-75.2); HEMATOCRIT 24.3 % (42-52); MEAN CORPUSCULAR HGB CONC 30.3 G/DL (33.0-37.0); MEAN CORPUSCULAR VOLUME 75.8 FL (80.0-94.0); MEAN PLATELET VOLUME 9.5 FL (7.4-10.4); PLATELET COUNT 311 /CUMM (130-400); RBC DISTRIBUTION WIDTH 19.2 % (11.5-14.5); WHITE BLOOD CELL COUNT 10.6 /CUMM (4.8-10.8)
[2017-06-28 16:00] VITALS: BP 122/62
[2017-06-29] VITALS: BP 118/66
[2017-06-29 04:00] VITALS: BP 120/60
[2017-06-29 05:01] LABS: ABSOLUTE BASOPHIL COUNT 0 /CUMM (0.0-0.2); ABSOLUTE EOSINOPHIL COUNT 0.1 /CUMM (0.0-0.7); ABSOLUTE GRANULOCYTE CT 9.3 /CUMM (1.4-6.5); ABSOLUTE LYMPH COUNT 1.1 /CUMM (1.2-3.4); ABSOLUTE MONOCYTE COUNT 0.7 /CUMM (0.10-0.60); BASOPHIL % 0.2 % (0.0-2.0); EOSINOPHIL % 0.7 % (0-5); GRANULOCYTE % 83.3 % (42.2-75.2); HEMATOCRIT 21.1 % (42-52); MEAN CORPUSCULAR HGB CONC 30.6 G/DL (33.0-37.0); MEAN CORPUSCULAR VOLUME 75.1 FL (80.0-94.0); MEAN PLATELET VOLUME 9.9 FL (7.4-10.4); PLATELET COUNT 278 /CUMM (130-400); RBC DISTRIBUTION WIDTH 18.8 % (11.5-14.5); RED BLOOD CELL CT 2.81 /CUMM (4.70-6.10); WHITE BLOOD CELL COUNT 11.2 /CUMM (4.8-10.8)
[2017-06-29 07:15] VITALS: BP 100/50
--- NOTE | 2017-06-29 07:20 | PN- CRCU ---
Subjective HPI/Critical Care Issues: The patient is awake and alert. There were no overnight events. He remains hemodynamically stable. He is currently on dialysis. Objective Current Medications: Current Medications Sig/Bipin Start time Last Medication Dose Route Stop Time Status Admin Acetaminophen 650 MG Q6P PRN 06/26 1745 AC PO Amlodipine Besylate 10 MG DAILY 06/27 1000 AC 06/28 PO 1105 Atenolol 12.5 MG DAILY 06/27 1000 AC 06/28 PO 1107 Epoetin Gómez 3,000 UNIT Monday .. 06/28 1000 AC 06/28 IV 1108 Epoetin Gómez 2,000 UNIT Monday .. 06/28 0930 AC 06/28 IV 1107 Furosemide 80 MG DAILY 06/29 1000 AC PO Furosemide 40 MG ONCE ONE 06/29 0530 CAN IV 06/29 0531 Furosemide 80 MG BID 06/27 1307 DC 06/28 IV 1132 Furosemide 80 MG ONCE PRN 06/26 1745 AC 06/26 IV 1843 Hydromorphone HCl 0.4 MG Q4P PRN 06/27 1645 AC IV Insulin Aspart 0 TIDAC 06/27 0800 AC 06/28 SC 1621 Morphine Sulfate 2 MG Q4P PRN 06/26 1745 AC 06/27 IV 1453 Multivitamins 1 TAB DAILY 06/27 1348 AC 06/28 PO 1103 Sevelamer Carbonate 800 MG WM 06/26 1745 AC 06/28 PO 1622 Sodium Bicarbonate 650 MG TID 06/26 1745 AC 06/28 PO 2301 Vital Signs & I&O Last 24 Hrs of Vitals and I&O: Vital Signs Date Time Temp Pulse Resp B/P B/P Pulse O2 O2 Flow FiO2 Mean Ox Delivery Rate 06/29 0400 99.2 68 18 120/60 96 Room Air 06/29 0000 95 Room Air 06/29 0000 99.3 72 18 118/66 95 Room Air 06/28 1600 97 Room Air 06/28 1600 98.2 70 14 122/62 97 Room Air 06/28 1200 98 Room Air 06/28 1107 78 145/71 06/28 1105 78 145/71 06/28 0800 97 Nasal 2.0L Cannula 06/28 0800 97.9 74 20 110/70 99 Nasal 2.0L Cannula Intake & Output 06/29 0800 06/29 0000 06/28 1600 Intake Total 150 600 360 Output Total 624 946 7729 Balance -125 200 -2540 Intake, Oral 150 600 360 Number 1 0 Bowel Movements Output, 2000 Dialysate Output, Urine 275 400 900 Patient 254 lb 248 lb Weight Weight Bed scale Bed scale Measurement Method Physical Exam General Appearance Alert, Oriented X3, Cooperative, No Acute Distress Skin No Rashes Skin Temp/Moisture Exam: Warm/Dry Sepsis Skin Exam (color): Normal for Ethnicity HEENT Atraumatic, PERRLA, EOMI, Mucous Membr. moist/pink Neck Supple, No JVD Cardiovascular Regular Rate, Normal S1, Normal S2, No Murmurs Lungs Clear to Auscultation, decreased breath sounds at lung bases Abdomen Normal Bowel Sounds, Soft, No Tenderness, No Hepatospenomegaly, No Masses, SACRAL EDEMA UP TO MID BACK Neurological Normal Speech, Strength at 5/5 X4 Ext, Normal Tone, Cranial Nerves 3-12 NL Extremities Neuropathic ulcer on sole of foot, generalized anasarca Results Last 24 Hrs of Lab Results: Laboratory Tests 06/29/17 0335: Anion Gap 16, Estimated GFR 7 L, Glucose 152 H, Calcium 6.1 L, Phosphorus 6.8 H, Magnesium 1.6, Total Bilirubin 0.2, AST 12 L, ALT 26, Albumin 2.3 L, CBC w Diff MAN DIFF ORDERED, RBC 2.81 L, MCV 75.1 L, MCH 23.0 L, MCHC 30.6 L, RDW 18.8 H, MPV 9.9, Gran % 83.3 H, Lymphocytes % 9.5 L, Monocytes % 6.3, Eosinophils % 0.7, Basophils % 0.2, Absolute Granulocytes 9.3 H, Segmented Neutrophils 80 H, Band Neutrophils 1, Absolute Lymphocytes 1.1 L, Lymphocytes 15 L, Monocytes 3, Absolute Monocytes 0.7 H, Absolute Eosinophils 0.1, Basophils 1, Absolute Basophils 0, Platelet Estimate ADEQUATE, Polychromasia 1+, Hypochromic-Microcytic 2+, Poikilocytosis 4+, Basophilic Stippling SLIGHT, Anisocytosis 1+, Microcytic Cells 1+, Ovalocytes 1+, [place] Cells 2+, Elliptocytes 1+, Fld Total RBCs Counted 100 06/28/17 1425: CBC w Diff MAN DIFF ORDERED, RBC 3.20 L, MCV 75.8 L, MCH 23.0 L, MCHC 30.3 L , RDW 19.2 H, MPV 9.5, Gran % 88.6 H, Lymphocytes % 4.7 L, Monocytes % 5.8, Eosinophils % 0.7, Basophils % 0.2, Absolute Granulocytes 9.4 H, Absolute Lymphocytes 0.5 L, Absolute Monocytes 0.6, Absolute Eosinophils 0.1, Absolute Basophils 0, Platelet Estimate VERIFIED BY SMEAR, Polychromasia 1+, Hypochromic- Microcytic 2+, Poikilocytosis 2+, Anisocytosis 1+, Microcytic Cells 1+, Ovalocytes 1+, [place] Cells 1+, Elliptocytes 1+ 06/28/17 0810: Hep Bs Antibody NONREACTIVE Diagnostic Data CXR Findings: 1. Right jugular catheter tip in the high right atrium. No pneumothorax. 2. Low lung volumes. 3. Mild central vascular congestion. No evidence of pulmonary edema. Impression/Plan Impression/Plan Impression/Plan: 1. Severe renal failure without overt uremia but with anasarca, suspect ESRD secondary to progressive diabetic nephropathy as per nephrology. 2. Metabolic acidosis secondary to renal failure. 3. Severe anemia without evidence of active bleeding, thought to be secondary to ESRD. Epogen ordered. 4. Severe scrotal edema, s/p frazier placement. 5. Mild leukocytosis without evidence of infection, may be stress induced. 6. Hyperphosphotemia with secondary hyperparathyroidism and hypovitainosis D. Recommendations: * Monitor I/Os. * Diuresis as per nephrology. * Diet as tolerated. * Need to consider endocrine evaluation. * Follow up pancultures today due to increasing WBC count. * Frazier catheter to remain in place for now. * Monitor BP closely, continue the patient on meds for BP control. * Monitor for bleeding, guiac all stool. Will call GI if any evidence of active bleeding. On Iron and Epogen. * Discuss possibility of transfusion with nephrology. * DVT prophylaxis with Alps due to severe anemia. Avoid SQ heparin for now. * Downgrade to gen med.
--- NOTE | 2017-06-29 07:39 | PN- Resident CRCU ---
Subjective HPI/CRCU Issues: Severe Renal Failure, possible ESRD Metabolic Acidosis Severe Anemia 24 Hour Events: No acute events overnight. Fall in Hb this morning. Will receive additional unit of pRBC today along with his dialysis. Will have 2.5hr session and 3 hr tomorrow. Seen and examined this morning. complains of discomfort due to his frazier catheter. The dilaudidd helps to keep the edge off but it bothers him especially when he moves. Fall in Hb again this morning to 6.5. He is scheduled for 1 unit pRBC along with his dialysis. This is 4th unit of blood since admission. Objective Vital Signs & I&O Last 8 Hrs of Vitals and I&O: . Exam General Appearance: alert, awake, mild distress Head: atraumatic, normal appearance Respiratory: normal breath sounds, chest non-tender, crackles in LLL Cardiovascular: regular rate/rhythm Gastrointestinal: soft, non-tender Extremities: 2+ bilateral lower extremity edema Cranial Nerves: normal hearing, normal speech Skin: intact, normal color Skin Temp/Moisture Exam: Warm/Dry Sepsis Skin Exam (color): Normal for Ethnicity Current Medications: Current Medications Sig/Bipin Start time Last Medication Dose Route Stop Time Status Admin Acetaminophen 650 MG Q6P PRN 06/26 1745 AC PO Amlodipine Besylate 10 MG DAILY 06/27 1000 AC 06/28 PO 1105 Atenolol 12.5 MG DAILY 06/27 1000 AC 06/28 PO 1107 Epoetin Gómez 3,000 UNIT Monday .. 06/28 1000 AC 06/28 IV 1108 Epoetin Gómez 2,000 UNIT Monday .. 06/28 0930 AC 06/28 IV 1107 Furosemide 80 MG DAILY 06/29 1000 AC PO Furosemide 40 MG ONCE ONE 06/29 0530 CAN IV 06/29 0531 Furosemide 80 MG BID 06/27 1307 DC 06/28 IV 1132 Furosemide 80 MG ONCE PRN 06/26 1745 AC 06/26 IV 1843 Hydromorphone HCl 0.6 MG Q4P PRN 06/29 1145 UNVr IV Hydromorphone HCl 0.4 MG Q4P PRN 06/27 1645 DC IV Insulin Aspart 0 TIDAC 06/27 0800 AC 06/28 SC 1621 Iron Sucrose 100 MG DAILY 06/29 1000 AC 06/29 Sodium Chloride 100 ML IV 07/08 1014 1000 Morphine Sulfate 2 MG Q4P PRN 06/26 1745 AC 06/27 IV 1453 Multivitamins 1 TAB DAILY 06/27 1348 AC 06/28 PO 1103 Sevelamer Carbonate 800 MG WM 06/26 1745 AC 06/29 PO 0858 Sodium Bicarbonate 650 MG TID 06/26 1745 AC 06/28 PO 2301 Impression/Plan Impression/Problem List Impression: 56yo man with a past medical history of hypertension, hyperlipidemia, acute chronic injury on chronic kidney disease, and charcot's neuropathy with chronic left foot ulcer presented with a one-month history of worsening anasarca and mild intermittent coughing. On admission his creatinine was found to be 10 which has worsened from his previous baseline around 2. He does appear to have an acute kidney injury in the setting of chronic kidney disease with fluid overload. Assessment and Plan: Acute kidney injury on chronic kidney disease/?ESRD: * Continue ICU for close monitoring * CT scan of his abdomen 06/26 showed no sign of hydronephrosis or obstruction and the patient is able to pass urine freely * Monitor fluid input and output closely. * Continues to diurese well. * Frazier in place. Can be discontinued tomorrow. * Patient still complains of discomfort with frazier catheter. * Will increase analgesia with dilaudidd 0.6mg q4prn. * His HIV and viral hepatitis panel screening was negative. * Will follow serologies. NAGA was negative * PO sevelemer 800 mg with meals * Replete electrolytes as necessary. * Appreciate Nephro recs. * Renal dialysis and diabetic diet * Scheduled for AshCath placement by IR today with dialysis tomorrow. Anasarca with fluid overload: * Diuresis with PO Lasix 80mg daily. * Strict I&Os * Daily weights * 1200 mls fluid restriction * Echocardiogram - LVEF > 60%, severe left atrial dilatation, Moderate to severe tricuspid regurgitation, moderate pulmonary hypertension, dilated inferior vena cava. No regional wall motion abnormalities. Anemia: * likely chronic secondary to CKD * s/p 4 units PRBC total. Repeat Hb is 7.2 * Started on Epogen and IV iron with dialysis. * Stool guiac was negative. * Iron studies show low iron with normal Ferritin and TIBC History of Hypertension * Continue atenolol 12.5 mg daily and amlodipine 10 mg daily. * May hold amlodipine and atenolol on dialysis days. Diabetes mellitus * Hold januvia * Continue novolog sliding scale low dose * ACCUCHEKS TIDAC * Watch for hypoglycemia due to renal failure and reduced insulin clearance. Vit D deficiency: * Likely in the setting of CKD and secondary hyperparathyroidism. He does have extremely high PTH. Along with high phosphate and low vit D. * Will start replacement of Vit D once hyperphosphatemia resolves. Diet: * Renal/Diabetic diet * 50 g protein, 2 g sodium, 2 g potassium, no concentrated sweets, 1200 mL fluid limit per day DVT prophylaxis * SC heparin 5000 units Q 8 hrs CODE STATUSfull code Problem List: 1. AYLEEN (acute kidney injury) Pain Ratin Tomorrow's Labs & Rationales: CBC, ICU bundle Plan DVT/Prophylaxis: mechanical
[2017-06-29 11:30] VITALS: BP 124/60
--- NOTE | 2017-06-29 12:00 | PN- Nephrology ---
Assessment/Plan Assessment: 1. Severe renal failure without overt uremia but with anasarca - likely ESRD secondary to progressive diabetic nephropathy 2. Metabolic acidosis - improving 3. Severe anemia secondary to CKD but also with low iron stores 4. Hyperphosphatemia with secondary hyperparathyroidism and hypovitaminosis D Suggestion: 1. Hemodialysis #2 today for 2.5 hours at 250 mL/min blood flow 2. Will dialyze again tomorrow for 3 hours and then on MWF next week 3. Epogen and parenteral iron ordered 4. Once phosphorus has come under control with the use of binders (sevelamer), will then begin therapy with vitamin D and a vitamin D analog 5. Evaluation still in progress 6. Assuming no recovery, will proceed with procuring an outpatient dialysis slot for him. He has not yet decided on hemodialysis versus peritoneal dialysis as his mode of renal replacement. 7. Can remove Alarcon tomorrow morning Subjective Subjective: Seen with his second dialysis this morning. Feeling a bit better without any specific complaints today. Edema is improving. Alarcon catheter still in place. Objective Vital Signs and I&Os Vital Signs Date Time Temp Pulse Resp B/P B/P Pulse O2 O2 Flow FiO2 Mean Ox Delivery Rate 06/29 1132 66 124/60 06/29 0715 98.9 68 18 100/50 97 Room Air 06/29 0400 99.2 68 18 120/60 96 Room Air 06/29 0000 95 Room Air 06/29 0000 99.3 72 18 118/66 95 Room Air 06/28 1600 97 Room Air 06/28 1600 98.2 70 14 122/62 97 Room Air 06/28 1200 98 Room Air Intake & Output 06/29 1600 06/29 0400 06/28 1600 06/28 0400 06/27 1600 06/27 0400 Intake Total 150 600 360 360 190 Output Total 565 317 7902 3110 1500 1150 Balance -125 200 -3200 -2750 -1310 -1150 Intake, Blood 300 Product Intake, IV 0 100 Intake, Oral 150 600 360 60 90 Number 1 0 0 Bowel Movements Output, 2000 Dialysate Output, Urine 704 794 9128 3110 1500 1150 Patient 254 lb 248 lb 259 lb Weight Weight Bed scale Bed scale Bed scale Measurement Method Physical Exam: General: Well-developed white male in no acute distress Skin: No rash or jaundice HEENT: Conjunctivae pale, sclerae anicteric, mucous membranes moist Neck: Without masses or thyromegaly, no supraclavicular or cervical adenopathy Chest: Clear to P&A Heart: Regular rate and rhythm without S3 or rub Abdomen: Soft and nontender without palpable masses or organomegaly Extremities: 3+ lower extremity edema to the thighs and scrotum and penis as well as presacral edema Neuro: Awake, alert and oriented without focal findings, no asterixis or myoclonus Results Pertinent Lab Results: Laboratory Tests 06/29 06/28 0335 1425 Chemistry Sodium (137 - 145 mmol/L) 142 Potassium (3.5 - 5.1 mmol/L) 4.2 Chloride (98 - 107 mmol/L) 110 H Carbon Dioxide (22 - 30 mmol/L) 16 L Anion Gap (5 - 16) 16 BUN (9 - 20 mg/dL) 94 H Creatinine (0.7 - 1.2 mg/dL) 8.5 *H Estimated GFR (>60 ml/min) 7 L Glucose (65 - 99 mg/dL) 152 H Calcium (8.4 - 10.2 mg/dL) 6.1 L Phosphorus (2.5 - 4.5 mg/dL) 6.8 H Magnesium (1.6 - 2.3 mg/dL) 1.6 Total Bilirubin (0.2 - 1.3 mg/dL) 0.2 AST (17 - 59 U/L) 12 L ALT (21 - 72 U/L) 26 Albumin (3.5 - 5.0 g/dL) 2.3 L Hematology CBC w Diff MAN DIFF ORDERED MAN DIFF ORDERED WBC (4.8 - 10.8 /CUMM) 11.2 H 10.6 RBC (4.70 - 6.10 /CUMM) 2.81 L 3.20 L Hgb (14.0 - 18.0 G/DL) 6.5 *L 7.4 *L Hct (42 - 52 %) 21.1 L 24.3 L MCV (80.0 - 94.0 FL) 75.1 L 75.8 L MCH (27.0 - 31.0 PG) 23.0 L 23.0 L MCHC (33.0 - 37.0 G/DL) 30.6 L 30.3 L RDW (11.5 - 14.5 %) 18.8 H 19.2 H Plt Count (130 - 400 /CUMM) 278 311 MPV (7.4 - 10.4 FL) 9.9 9.5 Gran % (42.2 - 75.2 %) 83.3 H 88.6 H Lymphocytes % (20.5 - 51.1 %) 9.5 L 4.7 L Monocytes % (1.7 - 9.3 %) 6.3 5.8 Eosinophils % (0 - 5 %) 0.7 0.7 Basophils % (0.0 - 2.0 %) 0.2 0.2 Absolute Granulocytes (1.4 - 6.5 /CUMM) 9.3 H 9.4 H Segmented Neutrophils (42.2 - 75.2 %) 80 H Band Neutrophils (0.0 - 5.0 %) 1 Absolute Lymphocytes (1.2 - 3.4 /CUMM) 1.1 L 0.5 L Lymphocytes (20.5 - 51.1 %) 15 L Monocytes (1.7 - 9.3 %) 3 Absolute Monocytes (0.10 - 0.60 /CUMM) 0.7 H 0.6 Absolute Eosinophils (0.0 - 0.7 /CUMM) 0.1 0.1 Basophils (0.0 - 2.0 %) 1 Absolute Basophils (0.0 - 0.2 /CUMM) 0 0 Platelet Estimate (ADEQUATE) ADEQUATE VERIFIED BY SMEAR Polychromasia 1+ 1+ Hypochromic-Microcytic 2+ 2+ Poikilocytosis 4+ 2+ Basophilic Stippling SLIGHT Anisocytosis 1+ 1+ Microcytic Cells 1+ 1+ Ovalocytes 1+ 1+ [place] Cells 2+ 1+ Elliptocytes 1+ 1+ Other Body Source Fld Total RBCs Counted (%) 100 06/28 06/28 0810 0609 Chemistry Sodium (137 - 145 mmol/L) 145 Potassium (3.5 - 5.1 mmol/L) 4.8 Chloride (98 - 107 mmol/L) 113 H Carbon Dioxide (22 - 30 mmol/L) 13 L Anion Gap (5 - 16) 20 H BUN (9 - 20 mg/dL) 108 *H Creatinine (0.7 - 1.2 mg/dL) 10.4 *H Estimated GFR (>60 ml/min) 5 L Glucose (65 - 99 mg/dL) 101 H Calcium (8.4 - 10.2 mg/dL) 6.7 L Phosphorus (2.5 - 4.5 mg/dL) 9.1 H Magnesium (1.6 - 2.3 mg/dL) 1.7 Total Bilirubin (0.2 - 1.3 mg/dL) 0.5 AST (17 - 59 U/L) 8 L ALT (21 - 72 U/L) 31 Albumin (3.5 - 5.0 g/dL) 2.9 L Hematology CBC w Diff MAN DIFF ORDERED WBC (4.8 - 10.8 /CUMM) 12.4 H RBC (4.70 - 6.10 /CUMM) 3.18 L Hgb (14.0 - 18.0 G/DL) 7.5 L Hct (42 - 52 %) 24.2 L MCV (80.0 - 94.0 FL) 76.1 L MCH (27.0 - 31.0 PG) 23.7 L RDW (11.5 - 14.5 %) 18.5 H Plt Count (130 - 400 /CUMM) 299 MPV (7.4 - 10.4 FL) 9.4 Gran % (42.2 - 75.2 %) 86.3 H Lymphocytes % (20.5 - 51.1 %) 5.8 L Monocytes % (1.7 - 9.3 %) 6.6 Eosinophils % (0 - 5 %) 1.1 Basophils % (0.0 - 2.0 %) 0.2 Absolute Granulocytes (1.4 - 6.5 /CUMM) 10.7 H Absolute Lymphocytes (1.2 - 3.4 /CUMM) 0.7 L Absolute Monocytes (0.10 - 0.60 /CUMM) 0.8 H Absolute Eosinophils (0.0 - 0.7 /CUMM) 0.1 Absolute Basophils (0.0 - 0.2 /CUMM) 0 Platelet Estimate (ADEQUATE) VERIFIED BY SMEAR Polychromasia 1+ Hypochromic-Microcytic 1+ Poikilocytosis 2+ Anisocytosis 1+ Microcytic Cells 1+ Ovalocytes 1+ [place] Cells 1+ Elliptocytes 1+ PUBS MCHC (33.0 - 37.0 G/DL) 31.1 L Serology Hep Bs Antibody (NONREACTIVE) NONREACTIVE 06/27 06/27 3337 1473 Hematology CBC w Diff NO MAN DIFF REQ WBC (4.8 - 10.8 /CUMM) 11.7 H RBC (4.70 - 6.10 /CUMM) 3.18 L Hgb (14.0 - 18.0 G/DL) 7.6 L Hct (42 - 52 %) 24.1 L MCV (80.0 - 94.0 FL) 75.9 L MCH (27.0 - 31.0 PG) 23.9 L RDW (11.5 - 14.5 %) 19.3 H Plt Count (130 - 400 /CUMM) 309 MPV (7.4 - 10.4 FL) 9.9 Gran % (42.2 - 75.2 %) 85.0 H Lymphocytes % (20.5 - 51.1 %) 7.0 L Monocytes % (1.7 - 9.3 %) 6.8 Eosinophils % (0 - 5 %) 0.8 Basophils % (0.0 - 2.0 %) 0.4 Absolute Granulocytes (1.4 - 6.5 /CUMM) 10.0 H Absolute Lymphocytes (1.2 - 3.4 /CUMM) 0.8 L Absolute Monocytes (0.10 - 0.60 /CUMM) 0.8 H Absolute Eosinophils (0.0 - 0.7 /CUMM) 0.1 Absolute Basophils (0.0 - 0.2 /CUMM) 0.1 PUBS MCHC (33.0 - 37.0 G/DL) 31.5 L Urines Ur Random Creatinine (mg/dL) 34.5 Urine Total Volume (600 - 1500 ML/24HR) 1550 H Urine Creatinine (1.0 - 2.0 g/24HR) 0.5 L Ur Total Protein 24 Hr (42 - 255 mg/24HR) 1488.0 H 06/27 06/27 0937 0500 Chemistry Sodium (137 - 145 mmol/L) 146 H Potassium (3.5 - 5.1 mmol/L) 4.7 Chloride (98 - 107 mmol/L) 114 H Carbon Dioxide (22 - 30 mmol/L) 12 L Anion Gap (5 - 16) 20 H BUN (9 - 20 mg/dL) 98 H Creatinine (0.7 - 1.2 mg/dL) 10.2 *H Estimated GFR (>60 ml/min) 5 L Glucose (65 - 99 mg/dL) 112 H Hemoglobin A1c (4.2 - 5.8 %) 6.7 H Cancelled Calcium (8.4 - 10.2 mg/dL) 6.4 L Phosphorus (2.5 - 4.5 mg/dL) 8.2 H Magnesium (1.6 - 2.3 mg/dL) 1.6 Total Bilirubin (0.2 - 1.3 mg/dL) 1.0 AST (17 - 59 U/L) 9 L ALT (21 - 72 U/L) 26 Albumin (3.5 - 5.0 g/dL) 3.0 L PTH Intact (18.4 - 80.1 pg/ML) 739.1 H Hematology CBC w Diff MAN DIFF ORDERED Cancelled WBC (4.8 - 10.8 /CUMM) 9.1 Cancelled RBC (4.70 - 6.10 /CUMM) 2.95 L Cancelled Hgb (14.0 - 18.0 G/DL) 6.8 *L Cancelled Hct (42 - 52 %) 22.0 L Cancelled MCV (80.0 - 94.0 FL) 74.7 L Cancelled MCH (27.0 - 31.0 PG) 23.0 L Cancelled RDW (11.5 - 14.5 %) 17.5 H Cancelled Plt Count (130 - 400 /CUMM) 289 Cancelled MPV (7.4 - 10.4 FL) 9.0 Cancelled Gran % (42.2 - 75.2 %) 84.1 H Lymphocytes % (20.5 - 51.1 %) 8.9 L Monocytes % (1.7 - 9.3 %) 5.6 Eosinophils % (0 - 5 %) 1.0 Basophils % (0.0 - 2.0 %) 0.4 Absolute Granulocytes (1.4 - 6.5 /CUMM) 7.6 H Absolute Lymphocytes (1.2 - 3.4 /CUMM) 0.8 L Absolute Monocytes (0.10 - 0.60 /CUMM) 0.5 Absolute Eosinophils (0.0 - 0.7 /CUMM) 0.1 Absolute Basophils (0.0 - 0.2 /CUMM) 0 Platelet Estimate (ADEQUATE) VERIFIED BY SMEAR Polychromasia 1+ Hypochromic-Microcytic 2+ Poikilocytosis 2+ Anisocytosis 1+ Microcytic Cells 1+ Ovalocytes 1+ [place] Cells 1+ PUBS MCHC (33.0 - 37.0 G/DL) 30.8 L Cancelled 06/27 06/26 0008 2251 Chemistry Sodium (137 - 145 mmol/L) 146 H Potassium (3.5 - 5.1 mmol/L) 4.8 Chloride (98 - 107 mmol/L) 114 H Carbon Dioxide (22 - 30 mmol/L) 13 L Anion Gap (5 - 16) 20 H BUN (9 - 20 mg/dL) 108 *H Creatinine (0.7 - 1.2 mg/dL) 10.0 *H Estimated GFR (>60 ml/min) 5 L Glucose (65 - 99 mg/dL) 131 H Calcium (8.4 - 10.2 mg/dL) 6.2 L Phosphorus (2.5 - 4.5 mg/dL) 7.8 H Magnesium (1.6 - 2.3 mg/dL) 1.7 Total Bilirubin (0.2 - 1.3 mg/dL) 0.6 AST (17 - 59 U/L) 18 ALT (21 - 72 U/L) 36 Albumin (3.5 - 5.0 g/dL) 3.0 L Hematology CBC w Diff MAN DIFF ORDERED WBC (4.8 - 10.8 /CUMM) 8.7 RBC (4.70 - 6.10 /CUMM) 2.58 L Hgb (14.0 - 18.0 G/DL) 5.7 *L Hct (42 - 52 %) 18.9 *L MCV (80.0 - 94.0 FL) 73.3 L MCH (27.0 - 31.0 PG) 22.3 L RDW (11.5 - 14.5 %) 18.3 H Plt Count (130 - 400 /CUMM) 291 MPV (7.4 - 10.4 FL) 9.3 Gran % (42.2 - 75.2 %) 80.3 H Lymphocytes % (20.5 - 51.1 %) 11.7 L Monocytes % (1.7 - 9.3 %) 6.4 Eosinophils % (0 - 5 %) 1.1 Basophils % (0.0 - 2.0 %) 0.5 Absolute Granulocytes (1.4 - 6.5 /CUMM) 7.0 H Segmented Neutrophils (42.2 - 75.2 %) 78 H Absolute Lymphocytes (1.2 - 3.4 /CUMM) 1.0 L Lymphocytes (20.5 - 51.1 %) 19 L Monocytes (1.7 - 9.3 %) 3 Absolute Monocytes (0.10 - 0.60 /CUMM) 0.6 Absolute Eosinophils (0.0 - 0.7 /CUMM) 0.1 Absolute Basophils (0.0 - 0.2 /CUMM) 0 Nucleated RBCs (0.0 - 0.0 /100WBC) 2 H Platelet Estimate (ADEQUATE) ADEQUATE Hypochromic-Microcytic 2+ Poikilocytosis 2+ Ovalocytes 2+ PUBS MCHC (33.0 - 37.0 G/DL) 30.4 L Urines Ur Random Creatinine Cancelled 06/26 06/26 06/26 2220 2220 1814 Chemistry Iron (49 - 181 ug/dL) 24 L TIBC (261 - 462 ug/dL) 368 Ferritin (17.9 - 464 ng/mL) 24.6 Coagulation PT (9.4 - 12.5 SEC) 14.2 H INR (0.90 - 1.17) 1.36 H Immunology ANCA Pending Complement C3 Pending Complement C4 Pending Urines Urinalysis MOD H Urine Color (YEL,AMB,STR) YEL Urine Clarity (CLEAR) CLDY H Urine pH (5.0 - 8.0) 5.5 Ur Specific [place] (1.001 - 1.035) 1.020 Urine Protein (NEG,<30 MG/DL) 100 H Urine Ketones (NEG) NEG Urine Nitrite (NEG) NEG Urine Bilirubin (NEG) NEG Urine Urobilinogen (0.1 - 1.0 EU/dl) 0.2 Ur Leukocyte Esterase (NEG) SMALL H Ur Microscopic SEDIMENT EXAMINED Urine RBC (0 - 5 /HPF) FEW H Urine WBC (0 - 2 /HPF) RARE Ur Epithelial Cells (NONE,FEW) RARE Urine Bacteria (NEG/NONE) RARE H Urine Hemoglobin (NEG) SMALL H Ur Random Creatinine (mg/dL) 58.0 Ur Random Sodium (30 - 90 mmol/L) 68 Ur Random Potassium (mmol/L) 20.8 Fraction Sodium Excret (<1% %) 7.9 H Urine Glucose (N MG/DL) NEG
[2017-06-29 13:35] LABS: ABSOLUTE BASOPHIL COUNT 0 /CUMM (0.0-0.2); ABSOLUTE EOSINOPHIL COUNT 0.1 /CUMM (0.0-0.7); HEMATOCRIT 23.1 % (42-52); MEAN CORPUSCULAR HGB 23.6 PG (27.0-31.0)
[2017-06-29 13:41] LABS: ABSOLUTE GRANULOCYTE CT 9.3 /CUMM (1.4-6.5); ABSOLUTE LYMPH COUNT 1.1 /CUMM (1.2-3.4); ABSOLUTE MONOCYTE COUNT 0.6 /CUMM (0.10-0.60); BASOPHIL % 0.3 % (0.0-2.0); EOSINOPHIL % 0.7 % (0-5); GRANULOCYTE % 83.5 % (42.2-75.2); MEAN CORPUSCULAR VOLUME 76.1 FL (80.0-94.0); MEAN PLATELET VOLUME 9.5 FL (7.4-10.4); PLATELET COUNT 264 /CUMM (130-400); RBC DISTRIBUTION WIDTH 19.6 % (11.5-14.5); RED BLOOD CELL CT 3.03 /CUMM (4.70-6.10); WHITE BLOOD CELL COUNT 11.2 /CUMM (4.8-10.8)
[2017-06-29 15:35] VITALS: BP 110/70
--- NOTE | 2017-06-29 16:39 | Transfer of Care Summary ---
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 On admission his creatinine was found to be 10 which has worsened from his previous baseline around 2. He does appear to have an acute kidney injury in the setting of chronic kidney disease with fluid overload. Active Issues: Acute kidney injury on chronic kidney disease/?ESRD and Anasarca with Fluid Overload: On admission he was found to have severely elevated Cr of 10. He had a tunneled AshCath placed for senior living dialysis. He possibly has ESRD secondary to diabetic nephropathy. His HIV and viral hepatitis panel screening was negative. He is scheduled for a 3 hour dialysis session on Monday. He will require an outpatient dialysis spot. On admission he was also found to be severely volume overloaded with 4+ pitting edema bilateral lower extremities up to his groin. Initially he received diuresis with IV Lasix 80mg BID and subsequently decreased to 80mg PO. He has diuresed well. A Alarcon was placed on admission by Dr Pagan which can be discontinued on (06/30). Please discontinue his analgesia with dilaudidd once Alarcon has been removed. He's on 1200ml fluid restriction. An Echocardiogram was performed which showed - LVEF > 60%, severe left atrial dilatation, Moderate to severe tricuspid regurgitation, moderate pulmonary hypertension, dilated inferior vena cava. No regional wall motion abnormalities. Anemia: This is likely chronic and secondary to CKD. His iron studies show low iron with normal Ferritin and TIBC. He has been started on Epogen and IV iron with dialysis. * s/p 4 units PRBC total. Repeat Hb is 7.2 * Monitor daily CBC History of Hypertension Continue atenolol 12.5 mg daily and amlodipine 10 mg daily. As blood pressure tends to drop with dialysis, these medications can be held on dialysis days. Diabetes Mellitus: Home medication Januvia currently on hold. Continue on Insulin SS with regular Accucheks. Watch out for hypoglycemia as there is reduced insulin clearance with CKD. Vit D deficiency: Likely in the setting of CKD and secondary hyperparathyroidism. He does have extremely high PTH. Along with high phosphate and low vit D. He can be started replacement of Vit D once hyperphosphatemia resolves. Diet: Renal/Diabetic diet. Restrict to 50 g protein, 2 g sodium, 2 g potassium, no concentrated sweets, 1200 mL fluid limit per day. PO sevelemer 800 mg with meals DVT prophylaxis Maintained with SC heparin 5000 units Q 8 hrs CODE STATUSfull code Assessment/Plan: . Maintained with SC heparin 5000 units Q 8 hrs CODE STATUSfull code
[2017-06-29 22:29] VITALS: BP 130/80
[2017-06-30 05:27] VITALS: BP 130/60
--- NOTE | 2017-06-30 07:19 | PN- Housestaff ---
Bam MARQUES,Kerline 06/30/17 0719: Subjective Follow-up For: AYLEEN on CKD on HD Metabolic Acidosis- resolved Severe Anemia Subjective: Patient is seen and examined at bedside, he had hemodialysis today, most likely will be going for hemodialysis on Monday, his H&H was noticed to be dropping, he received 4 units of packed RBCs in the ICU Review of Systems Constitutional: Reports: malaise, weakness. Cardiovascular: Denies: no symptoms. Respiratory: Denies: no symptoms. Gastrointestinal: Denies: no symptoms. Genitourinary: Denies: no symptoms. Objective Last 24 Hrs of Vital Signs/I&O Vital Signs Date Time Temp Pulse Resp B/P B/P Pulse O2 O2 Flow FiO2 Mean Ox Delivery Rate 06/30 1351 98.3 68 20 150/80 97 Room Air 06/30 1101 67 160/82 06/30 1100 67 160/82 06/30 1056 99.1 67 20 160/82 96 Room Air 06/30 0527 97.7 68 20 130/60 96 Room Air 06/29 2229 98.4 72 20 130/80 98 Room Air Intake & Output 06/30 1600 06/30 0800 06/30 0000 Intake Total 580 0 480 Output Total 350 950 700 Balance 230 -950 -220 Intake, IV 100 Intake, Oral 480 0 480 Number 1 Bowel Movements Output, Urine 350 950 700 Patient 258 lb Weight Physical Exam General Appearance: Alert, Oriented X3, Cooperative, No Acute Distress HEENT: Atraumatic, PERRLA, EOMI, Mucous Membr. moist/pink Cardiovascular: Normal S1, Normal S2, No Murmurs Lungs: Clear to Auscultation Abdomen: Normal Bowel Sounds, Soft, No Tenderness Extremities: bilateral EXTENSIVE LE EDEMA Vascular: Normal Pulses Assessment/Plan Assessment: 56yo man with a past medical history of hypertension, hyperlipidemia, acute chronic injury on chronic kidney disease, and charcot's neuropathy with chronic left foot ulcer presented with a one-month history of worsening anasarca and mild intermittent coughing. On admission his creatinine was found to be 10 which has worsened from his previous baseline around 2. He does appear to have an acute kidney injury in the setting of chronic kidney disease with fluid overload. Acute kidney injury on chronic kidney disease/?ESRD: Patient had hemodialysis for the today for 3 hours Next hemodialysis will be on Monday 07/03 * CT scan of his abdomen 06/26 showed no sign of hydronephrosis or obstruction and the patient is able to pass urine freely * Monitor fluid input and output closely. * Continues to diurese well. * Will increase analgesia with dilaudidd 0.6mg q4prn. * His HIV and viral hepatitis panel screening was negative. * Will follow serologies. NAGA was negative * PO sevelemer 800 mg with meals * Replete electrolytes as necessary. * Appreciate Nephro recs. * Renal dialysis and diabetic diet * Jerome cath in place * DC sodium bicarbonate * Start vitamin D 2000 units by mouth daily * If kidney function does not improve he will be a candidate for hemodialysis versus peritoneal dialysis * will proceed with procuring an outpatient dialysis slot for him. He has not yet decided on hemodialysis versus peritoneal dialysis as his mode of renal replacement. Anasarca with fluid overload: * Diuresis with PO Lasix 80mg daily. * Strict I&Os * Daily weights * 1200 mls fluid restriction * Echocardiogram - LVEF > 60%, severe left atrial dilatation, Moderate to severe tricuspid regurgitation, moderate pulmonary hypertension, dilated inferior vena cava. No regional wall motion abnormalities. Anemia: * H&H dropping, today hemoglobin is 7.4 * Follow up on CBC at 5 PM, go hemoglobin is above 7 * likely chronic secondary to CKD * s/p 4 units PRBC total. * Started on Epogen and IV iron with dialysis. * Stool guiac was negative. * Iron studies show low iron with normal Ferritin and TIBC History of Hypertension * Continue atenolol 12.5 mg daily and amlodipine 10 mg daily. * May hold amlodipine and atenolol on dialysis days. Diabetes mellitus * Hold januvia * Continue novolog sliding scale low dose * ACCUCHEKS TIDAC * Watch for hypoglycemia due to renal failure and reduced insulin clearance. Vit D deficiency: * Likely in the setting of CKD and secondary hyperparathyroidism. He does have extremely high PTH. Along with high phosphate and low vit D. * Will start replacement of Vit D once hyperphosphatemia resolves. Diet: * Renal/Diabetic diet * 50 g protein, 2 g sodium, 2 g potassium, no concentrated sweets, 1200 mL fluid limit per day DVT prophylaxis * SC heparin 5000 units Q 8 hrs CODE STATUSfull code Problem List: 1. Anemia 2. Anasarca associated with disorder of kidney 3. Acute renal failure 4. HTN (hypertension) Pain Ratin Pain Location: NONE Pain Goal: Remain pain free Pain Plan: PATHWAY Tomorrow's Labs & Rationales: CBC BEP DVT/Prophylaxis: Dangelo Martinez MD 06/30/17 1136: Attending MD Review Statement Attending Statement Attending MD Statement: examined this patient, discuss w/resident/PA/CHEMICALS DISTILLER, agreed w/resident/PA/CHEMICALS DISTILLER, reviewed EMR data (avail) Attending Assessment/Plan: 56M PMH HTN, HLD, T2DM, CKD admitted with anasarca, uremia, and severe metabolic acidosis in the setting of acute on chronic renal failure leading to ESRD, now on hemodialysis through catheter, course complicated by anemia secondary to CKD requiring 4 units pRBC, no signs of active bleeding. No complaints today, feels well, labs improving. Hgb remains low. 1. ESRD on HD 2. Severe metabolic acidosis (resolved) 3. Uremia (resolved) 4. Anasarca 5. Chronic anemia secondary to CKD Plan - Continue on general medicine - Will undergo HD today - Monitor CBC - Continue IV Iron and Epo - Continue Sevelamer, monitor phosphate and calcium - Continue home medications - DVT PPx
[2017-06-30 08:22] LABS: ABSOLUTE BASOPHIL COUNT 0 /CUMM (0.0-0.2); ABSOLUTE MONOCYTE COUNT 0.9 /CUMM (0.10-0.60)
[2017-06-30 08:29] LABS: ABSOLUTE EOSINOPHIL COUNT 0.3 /CUMM (0.0-0.7); ABSOLUTE GRANULOCYTE CT 8.7 /CUMM (1.4-6.5); ABSOLUTE LYMPH COUNT 1.1 /CUMM (1.2-3.4); BASOPHIL % 0.3 % (0.0-2.0); EOSINOPHIL % 2.3 % (0-5); GRANULOCYTE % 79.4 % (42.2-75.2); HEMATOCRIT 23.8 % (42-52); MEAN CORPUSCULAR HGB 23.7 PG (27.0-31.0); MEAN CORPUSCULAR HGB CONC 31.2 G/DL (33.0-37.0); MEAN PLATELET VOLUME 9.5 FL (7.4-10.4); PLATELET COUNT 233 /CUMM (130-400); RBC DISTRIBUTION WIDTH 18.6 % (11.5-14.5); RED BLOOD CELL CT 3.13 /CUMM (4.70-6.10); WHITE BLOOD CELL COUNT 10.9 /CUMM (4.8-10.8)
[2017-06-30 08:43] LABS: ABSOLUTE BASOPHIL COUNT 0 /CUMM (0.0-0.2); ABSOLUTE EOSINOPHIL COUNT 0.1 /CUMM (0.0-0.7); ABSOLUTE GRANULOCYTE CT 9.3 /CUMM (1.4-6.5); BASOPHIL % 0.4 % (0.0-2.0); EOSINOPHIL % 0.8 % (0-5); MEAN CORPUSCULAR HGB 23.5 PG (27.0-31.0); MEAN CORPUSCULAR HGB CONC 30.8 G/DL (33.0-37.0); MEAN CORPUSCULAR VOLUME 76.4 FL (80.0-94.0); PLATELET COUNT 243 /CUMM (130-400); RBC DISTRIBUTION WIDTH 18.6 % (11.5-14.5); RED BLOOD CELL CT 3.28 /CUMM (4.70-6.10); WHITE BLOOD CELL COUNT 11.4 /CUMM (4.8-10.8)
[2017-06-30 10:56] VITALS: BP 160/82
--- NOTE | 2017-06-30 12:00 | PN- Nephrology ---
See Addendum Assessment/Plan Assessment: 1. Severe renal failure with improving anasarca - likely ESRD secondary to progressive diabetic nephropathy 2. Metabolic acidosis -resolved 3. Severe anemia secondary to CKD but also with low iron stores 4. Hyperphosphatemia, much improved, with secondary hyperparathyroidism and hypovitaminosis D Suggestion: 1. Hemodialysis #3 today for 3 hours at 300 mL/min blood flow 2. Next hemodialysis for Monday 07/03 3. Epogen and parenteral iron ordered 4. Now that serum phosphorus is near normal, would begin addressing secondary hyperparathyroidism and hypovitaminosis D with oral vitamin D 2000 units daily. This will likely soon be followed by the addition of a vitamin D analog with dialysis 5. Assuming no recovery, will proceed with procuring an outpatient dialysis slot for him. He has not yet decided on hemodialysis versus peritoneal dialysis as his mode of renal replacement. Subjective Subjective: Patient is feeling better and notes that his edema is less. Seen with hemodialysis. A dry weight has been tentatively established at 110 kg. Serologic workup has been entirely negative. Serum phosphorous down to 5.2. Objective Vital Signs and I&Os Vital Signs Date Time Temp Pulse Resp B/P B/P Pulse O2 O2 Flow FiO2 Mean Ox Delivery Rate 06/30 1101 67 160/82 06/30 1100 67 160/82 06/30 1056 99.1 67 20 160/82 96 Room Air 06/30 0527 97.7 68 20 130/60 96 Room Air 06/29 2229 98.4 72 20 130/80 98 Room Air 06/29 1535 98.1 68 20 110/70 97 Room Air Intake & Output 06/30 1600 06/30 0400 06/29 1600 06/29 0400 06/28 1600 06/28 0400 Intake Total 0 480 510 600 360 360 Output Total 950 700 197 914 2708 3110 Balance -950 -220 -115 200 -3200 -2750 Intake, Blood 300 Product Intake, IV 0 Intake, Oral 0 480 510 600 360 60 Number 1 0 0 Bowel Movements Output, 2000 Dialysate Output, Urine 950 700 787 632 0782 3110 Patient 258 lb 248 lb 248 lb 259 lb Weight Weight Bed scale Bed scale Bed scale Measurement Method Physical Exam: General: Well-developed white male in no acute distress Skin: No rash or jaundice HEENT: Conjunctivae pale, sclerae anicteric, mucous membranes moist Neck: Without masses or thyromegaly, no supraclavicular or cervical adenopathy Chest: Clear to P&A Heart: Regular rate and rhythm without S3 or rub Abdomen: Soft and nontender without palpable masses or organomegaly Extremities: 2+ lower extremity edema to the thighs; scrotal and penile edema much improved Neuro: Awake, alert and oriented without focal findings, no asterixis or myoclonus Results Pertinent Lab Results: Laboratory Tests 06/30 06/30 1030 0730 Chemistry Sodium (137 - 145 mmol/L) 144 Potassium (3.5 - 5.1 mmol/L) 3.4 L Chloride (98 - 107 mmol/L) 105 Carbon Dioxide (22 - 30 mmol/L) 22 Anion Gap (5 - 16) 16 BUN (9 - 20 mg/dL) Pending 63 H Creatinine (0.7 - 1.2 mg/dL) 6.6 *H Estimated GFR (>60 ml/min) 9 L BUN/Creatinine Ratio (7 - 25 %) 9.5 Calcium (8.4 - 10.2 mg/dL) 6.6 L Hematology CBC w Diff NO MAN DIFF REQ WBC (4.8 - 10.8 /CUMM) 10.9 H RBC (4.70 - 6.10 /CUMM) 3.13 L Hgb (14.0 - 18.0 G/DL) 7.4 *L Hct (42 - 52 %) 23.8 L MCV (80.0 - 94.0 FL) 76.0 L MCH (27.0 - 31.0 PG) 23.7 L MCHC (33.0 - 37.0 G/DL) 31.2 L RDW (11.5 - 14.5 %) 18.6 H Plt Count (130 - 400 /CUMM) 233 MPV (7.4 - 10.4 FL) 9.5 Gran % (42.2 - 75.2 %) 79.4 H Lymphocytes % (20.5 - 51.1 %) 9.9 L Monocytes % (1.7 - 9.3 %) 8.1 Eosinophils % (0 - 5 %) 2.3 Basophils % (0.0 - 2.0 %) 0.3 Absolute Granulocytes (1.4 - 6.5 /CUMM) 8.7 H Absolute Lymphocytes (1.2 - 3.4 /CUMM) 1.1 L Absolute Monocytes (0.10 - 0.60 /CUMM) 0.9 H Absolute Eosinophils (0.0 - 0.7 /CUMM) 0.3 Absolute Basophils (0.0 - 0.2 /CUMM) 0 06/30 06/29 0713 1200 Chemistry Sodium (137 - 145 mmol/L) 143 Potassium (3.5 - 5.1 mmol/L) 3.6 Chloride (98 - 107 mmol/L) 105 Carbon Dioxide (22 - 30 mmol/L) 22 Anion Gap (5 - 16) 16 BUN (9 - 20 mg/dL) 61 H Creatinine (0.7 - 1.2 mg/dL) 6.7 *H Estimated GFR (>60 ml/min) 9 L Glucose (65 - 99 mg/dL) 101 H Calcium (8.4 - 10.2 mg/dL) 6.6 L Phosphorus (2.5 - 4.5 mg/dL) 5.2 H Magnesium (1.6 - 2.3 mg/dL) 1.6 Total Bilirubin (0.2 - 1.3 mg/dL) 0.4 AST (17 - 59 U/L) 11 L ALT (21 - 72 U/L) 21 Albumin (3.5 - 5.0 g/dL) 2.7 L Hematology CBC w Diff NO MAN DIFF REQ MAN DIFF ORDERED WBC (4.8 - 10.8 /CUMM) 11.4 H 11.2 H RBC (4.70 - 6.10 /CUMM) 3.28 L 3.03 L Hgb (14.0 - 18.0 G/DL) 7.7 L 7.2 *L Hct (42 - 52 %) 25.0 L 23.1 L MCV (80.0 - 94.0 FL) 76.4 L 76.1 L MCH (27.0 - 31.0 PG) 23.5 L 23.6 L MCHC (33.0 - 37.0 G/DL) 30.8 L 31.0 L RDW (11.5 - 14.5 %) 18.6 H 19.6 H Plt Count (130 - 400 /CUMM) 243 264 MPV (7.4 - 10.4 FL) 9.0 9.5 Gran % (42.2 - 75.2 %) 81.0 H 83.5 H Lymphocytes % (20.5 - 51.1 %) 9.1 L 9.7 L Monocytes % (1.7 - 9.3 %) 8.7 5.8 Eosinophils % (0 - 5 %) 0.8 0.7 Basophils % (0.0 - 2.0 %) 0.4 0.3 Absolute Granulocytes (1.4 - 6.5 /CUMM) 9.3 H 9.3 H Segmented Neutrophils (42.2 - 75.2 %) 89 H Band Neutrophils (0.0 - 5.0 %) 1 Absolute Lymphocytes (1.2 - 3.4 /CUMM) 1.0 L 1.1 L Lymphocytes (20.5 - 51.1 %) 8 L Monocytes (1.7 - 9.3 %) 2 Absolute Monocytes (0.10 - 0.60 /CUMM) 1.0 H 0.6 Absolute Eosinophils (0.0 - 0.7 /CUMM) 0.1 0.1 Absolute Basophils (0.0 - 0.2 /CUMM) 0 0 Nucleated RBCs (0.0 - 0.0 /100WBC) 1 H Platelet Estimate (ADEQUATE) ADEQUATE Poikilocytosis 1+ Basophilic Stippling SLIGHT Anisocytosis 1+ Ovalocytes 1+ 06/29 06/28 0335 1425 Chemistry Sodium (137 - 145 mmol/L) 142 Potassium (3.5 - 5.1 mmol/L) 4.2 Chloride (98 - 107 mmol/L) 110 H Carbon Dioxide (22 - 30 mmol/L) 16 L Anion Gap (5 - 16) 16 BUN (9 - 20 mg/dL) 94 H Creatinine (0.7 - 1.2 mg/dL) 8.5 *H Estimated GFR (>60 ml/min) 7 L Glucose (65 - 99 mg/dL) 152 H Calcium (8.4 - 10.2 mg/dL) 6.1 L Phosphorus (2.5 - 4.5 mg/dL) 6.8 H Magnesium (1.6 - 2.3 mg/dL) 1.6 Total Bilirubin (0.2 - 1.3 mg/dL) 0.2 AST (17 - 59 U/L) 12 L ALT (21 - 72 U/L) 26 Albumin (3.5 - 5.0 g/dL) 2.3 L Hematology CBC w Diff MAN DIFF ORDERED MAN DIFF ORDERED WBC (4.8 - 10.8 /CUMM) 11.2 H 10.6 RBC (4.70 - 6.10 /CUMM) 2.81 L 3.20 L Hgb (14.0 - 18.0 G/DL) 6.5 *L 7.4 *L Hct (42 - 52 %) 21.1 L 24.3 L MCV (80.0 - 94.0 FL) 75.1 L 75.8 L MCH (27.0 - 31.0 PG) 23.0 L 23.0 L MCHC (33.0 - 37.0 G/DL) 30.6 L 30.3 L RDW (11.5 - 14.5 %) 18.8 H 19.2 H Plt Count (130 - 400 /CUMM) 278 311 MPV (7.4 - 10.4 FL) 9.9 9.5 Gran % (42.2 - 75.2 %) 83.3 H 88.6 H Lymphocytes % (20.5 - 51.1 %) 9.5 L 4.7 L Monocytes % (1.7 - 9.3 %) 6.3 5.8 Eosinophils % (0 - 5 %) 0.7 0.7 Basophils % (0.0 - 2.0 %) 0.2 0.2 Absolute Granulocytes (1.4 - 6.5 /CUMM) 9.3 H 9.4 H Segmented Neutrophils (42.2 - 75.2 %) 80 H Band Neutrophils (0.0 - 5.0 %) 1 Absolute Lymphocytes (1.2 - 3.4 /CUMM) 1.1 L 0.5 L Lymphocytes (20.5 - 51.1 %) 15 L Monocytes (1.7 - 9.3 %) 3 Absolute Monocytes (0.10 - 0.60 /CUMM) 0.7 H 0.6 Absolute Eosinophils (0.0 - 0.7 /CUMM) 0.1 0.1 Basophils (0.0 - 2.0 %) 1 Absolute Basophils (0.0 - 0.2 /CUMM) 0 0 Platelet Estimate (ADEQUATE) ADEQUATE VERIFIED BY SMEAR Polychromasia 1+ 1+ Hypochromic-Microcytic 2+ 2+ Poikilocytosis 4+ 2+ Basophilic Stippling SLIGHT Anisocytosis 1+ 1+ Microcytic Cells 1+ 1+ Ovalocytes 1+ 1+ [place] Cells 2+ 1+ Elliptocytes 1+ 1+ Other Body Source Fld Total RBCs Counted (%) 100 06/28 06/28 0810 0609 Chemistry Sodium (137 - 145 mmol/L) 145 Potassium (3.5 - 5.1 mmol/L) 4.8 Chloride (98 - 107 mmol/L) 113 H Carbon Dioxide (22 - 30 mmol/L) 13 L Anion Gap (5 - 16) 20 H BUN (9 - 20 mg/dL) 108 *H Creatinine (0.7 - 1.2 mg/dL) 10.4 *H Estimated GFR (>60 ml/min) 5 L Glucose (65 - 99 mg/dL) 101 H Calcium (8.4 - 10.2 mg/dL) 6.7 L Phosphorus (2.5 - 4.5 mg/dL) 9.1 H Magnesium (1.6 - 2.3 mg/dL) 1.7 Total Bilirubin (0.2 - 1.3 mg/dL) 0.5 AST (17 - 59 U/L) 8 L ALT (21 - 72 U/L) 31 Albumin (3.5 - 5.0 g/dL) 2.9 L Hematology CBC w Diff MAN DIFF ORDERED WBC (4.8 - 10.8 /CUMM) 12.4 H RBC (4.70 - 6.10 /CUMM) 3.18 L Hgb (14.0 - 18.0 G/DL) 7.5 L Hct (42 - 52 %) 24.2 L MCV (80.0 - 94.0 FL) 76.1 L MCH (27.0 - 31.0 PG) 23.7 L RDW (11.5 - 14.5 %) 18.5 H Plt Count (130 - 400 /CUMM) 299 MPV (7.4 - 10.4 FL) 9.4 Gran % (42.2 - 75.2 %) 86.3 H Lymphocytes % (20.5 - 51.1 %) 5.8 L Monocytes % (1.7 - 9.3 %) 6.6 Eosinophils % (0 - 5 %) 1.1 Basophils % (0.0 - 2.0 %) 0.2 Absolute Granulocytes (1.4 - 6.5 /CUMM) 10.7 H Absolute Lymphocytes (1.2 - 3.4 /CUMM) 0.7 L Absolute Monocytes (0.10 - 0.60 /CUMM) 0.8 H Absolute Eosinophils (0.0 - 0.7 /CUMM) 0.1 Absolute Basophils (0.0 - 0.2 /CUMM) 0 Platelet Estimate (ADEQUATE) VERIFIED BY SMEAR Polychromasia 1+ Hypochromic-Microcytic 1+ Poikilocytosis 2+ Anisocytosis 1+ Microcytic Cells 1+ Ovalocytes 1+ [place] Cells 1+ Elliptocytes 1+ PUBS MCHC (33.0 - 37.0 G/DL) 31.1 L Serology Hep Bs Antibody (NONREACTIVE) NONREACTIVE 06/276 4 Hematology CBC w Diff NO MAN DIFF REQ WBC (4.8 - 10.8 /CUMM) 11.7 H RBC (4.70 - 6.10 /CUMM) 3.18 L Hgb (14.0 - 18.0 G/DL) 7.6 L Hct (42 - 52 %) 24.1 L MCV (80.0 - 94.0 FL) 75.9 L MCH (27.0 - 31.0 PG) 23.9 L RDW (11.5 - 14.5 %) 19.3 H Plt Count (130 - 400 /CUMM) 309 MPV (7.4 - 10.4 FL) 9.9 Gran % (42.2 - 75.2 %) 85.0 H Lymphocytes % (20.5 - 51.1 %) 7.0 L Monocytes % (1.7 - 9.3 %) 6.8 Eosinophils % (0 - 5 %) 0.8 Basophils % (0.0 - 2.0 %) 0.4 Absolute Granulocytes (1.4 - 6.5 /CUMM) 10.0 H Absolute Lymphocytes (1.2 - 3.4 /CUMM) 0.8 L Absolute Monocytes (0.10 - 0.60 /CUMM) 0.8 H Absolute Eosinophils (0.0 - 0.7 /CUMM) 0.1 Absolute Basophils (0.0 - 0.2 /CUMM) 0.1 PUBS MCHC (33.0 - 37.0 G/DL) 31.5 L Urines Ur Random Creatinine (mg/dL) 34.5 Urine Total Volume (600 - 1500 ML/24HR) 1550 H Urine Creatinine (1.0 - 2.0 g/24HR) 0.5 L Ur Total Protein 24 Hr (42 - 255 mg/24HR) 1488.0 H
[2017-06-30 13:51] VITALS: BP 150/80
[2017-06-30 18:01] LABS: ABSOLUTE BASOPHIL COUNT 0.1 /CUMM (0.0-0.2); ABSOLUTE EOSINOPHIL COUNT 0.1 /CUMM (0.0-0.7); ABSOLUTE GRANULOCYTE CT 8.7 /CUMM (1.4-6.5); ABSOLUTE LYMPH COUNT 0.9 /CUMM (1.2-3.4); ABSOLUTE MONOCYTE COUNT 0.9 /CUMM (0.10-0.60); BASOPHIL % 0.6 % (0.0-2.0); EOSINOPHIL % 0.7 % (0-5); GRANULOCYTE % 81.8 % (42.2-75.2); HEMATOCRIT 26.4 % (42-52); MEAN CORPUSCULAR HGB 23.5 PG (27.0-31.0); MEAN CORPUSCULAR HGB CONC 30.5 G/DL (33.0-37.0); MEAN CORPUSCULAR VOLUME 76.9 FL (80.0-94.0); MEAN PLATELET VOLUME 9.3 FL (7.4-10.4); PLATELET COUNT 264 /CUMM (130-400); RBC DISTRIBUTION WIDTH 19.2 % (11.5-14.5); RED BLOOD CELL CT 3.43 /CUMM (4.70-6.10); WHITE BLOOD CELL COUNT 10.6 /CUMM (4.8-10.8)
[2017-06-30 22:21] VITALS: BP 138/78
[2017-07-01 06:29] VITALS: BP 132/78
[2017-07-01 09:05] LABS: ABSOLUTE BASOPHIL COUNT 0 /CUMM (0.0-0.2); ABSOLUTE EOSINOPHIL COUNT 0.1 /CUMM (0.0-0.7); ABSOLUTE MONOCYTE COUNT 0.8 /CUMM (0.10-0.60); BASOPHIL % 0.3 % (0.0-2.0); EOSINOPHIL % 0.8 % (0-5); GRANULOCYTE % 82.5 % (42.2-75.2); HEMATOCRIT 24.8 % (42-52); MEAN CORPUSCULAR HGB CONC 31.1 G/DL (33.0-37.0); MEAN CORPUSCULAR VOLUME 77.4 FL (80.0-94.0); MEAN PLATELET VOLUME 9.6 FL (7.4-10.4); PLATELET COUNT 264 /CUMM (130-400); RBC DISTRIBUTION WIDTH 19.2 % (11.5-14.5); WHITE BLOOD CELL COUNT 10.9 /CUMM (4.8-10.8)
--- NOTE | 2017-07-01 09:06 | Discharge Summary ---
Visit Information Visit Dates Admission Date: 06/26/17 Discharge Date: 07/05/17 Hospital Course Course Attending Physician: Dangelo De La O MD Primary Care Physician: Ej Borges MD Hospital Course: 56 year old man with a past medical history significant for hypertension, hyperlipidemia, diabetes mellitus, chronic kidney disease, and charcot's neuropathy with chronic left foot ulcer presented with anasarca, acute kidney injury, and anemia. On admission he was found to be grossly volume overloaded with anasarca up to the groin and sacrum with a severely elevated creatinine of 10mg/dL, previously 2mg/dL, and resultant elevated anion gap metabolic acidosis and HCO3 of 12 mmol /L. Nephrology was consulted and tunnel central line was place for hemodialysis. The acute kidney failure was suspected to be progressive diabetic nephropathy because he had previous renal insufficiency and high grade proteinuria in 2014, that unfortunately the patient failed to follow up on, and there was no history of recent exposures or ingestion of nephrotoxic agents. In addition to starting hemodialysis Mon/Mon/Mon, he was started on IV lasix. After improvement, of volume overload and acidosis with dialysis, he was stabilized on 80mg PO lasix daily and 1200cc fluid restriction. His hemoglobin was 5.2 on presentation and likely chronic anemia secondary to chronic renal insufficiency. He was started on intravenous iron and epogen with hemodialysis. He always required four units of packed red blood cell transfusion to stabilize his hemoglobin and hematocrit. In regards to his diabetes, it was managed with short acting insulin as an inpatient and his Januvia dose was reduced for ESRD HD dosing on discharge. He was extremely unhappy with the restriction placed on his diet with hemodialysis and diabetes and compliance will likely present a problem after discharge. A expressive art therapist was consulted during his inpatient stay to address improving his satisfaction and addressing dietary options while adhering to his dietary restrictions. He was also diagnosed with secondary hyperparathyroidism and hyperphosphatemia secondary to renal insufficiency. He was started on phosphate binders and Vitamin D replacement. He also had a diabetic foot ulcer on the left foot that was evaluated by Dr. Nichole of podiatry and wound care. He had an x-ray that had sclerosis of the fifth metatarsal that could not exclude chronic osteomyelitis. Evaluation with MRI was deferred until outpatient follow up with Dr. Nichole in the office. Allergies: Coded Allergies: NO KNOWN ALLERGIES (NONE 01/23/18) Pertinent Lab Results: Echocardiogram was performed which showed - LVEF > 60%, severe left atrial dilatation, Moderate to severe tricuspid regurgitation, moderate pulmonary hypertension, dilated inferior vena cava. No regional wall motion abnormalities. Disposition Summary Disposition Principal Diagnosis: Acute severe renal failure with fluid overload/anasarca requiring hemodialysis Elevated anion gap metabolic acidosis Severe chronic iron deficiency anemia requiring blood transfusion Hyperphosphatemia and secondary hyperparathyroidism Additional Diagnosis: Diabetes with Charcot's neuropathy Hypertension Hyperlipidemia Chronic kidney disease Discharge Disposition: home or self care Discharge Instructions General Discharge Information Code Status: Full Code Patient's Diet: Renal/Diabetic diet. Restrict to 50 g protein, 2 g sodium, 2 g potassium, no concentrated sweets, 1200 mL fluid limit per day Patient's Activity: As tolerated, no limitations Follow-Up Instructions/Appts: Please follow up with your primary care physician. Please follow up with Dr. Nichole within 1 week of discharge and have an MRI of your left foot to evaluate for osteomyelitis Please follow up with Dr. Atwood for ongoing hemodialysis, iron supplementations and hyperparathyroidism. Medications at Discharge Discharge Medications: Continue taking these medications: Amlodipine (Norvasc 10MG) 10 MG TAB 10 Milligram ORAL DAILY Qty = 30 Atenolol (Tenormin 12.5MG Tab (1/2 Of 25MG)) 12.5 MG HTAB 50 Milligram ORAL DAILY Qty = 30 Comments: Last Taken: 03/13/15 Time: 12:50 PM Start taking the following new medications: Sevelamer Carbonate (Renvela) 800 MG TABLET 800 Milligram ORAL WITH MEALS Qty = 30 No Refills Instructions: . Comments: Last Taken: 07/05/17 Time: 1200P Furosemide (Lasix) 40 MG TABLET 80 Milligram ORAL DAILY Qty = 30 No Refills Instructions: . Comments: Last Taken: 07/05/17 Time: 1200P Nephro-Vitamins (Nephro-Arabella Tablet) 0.8 MG TABLET 1 Tablet ORAL DAILY Qty = 30 No Refills Instructions: . Comments: Last Taken: 07/05/17 Time: 1200P Cholecalciferol (Vitamin D3) 1,000 UNIT TABLET 2,000 International Unit ORAL DAILY Qty = 30 No Refills Instructions: . Comments: Last Taken: 07/05/17 Time: 1200P The following medications have been changed: Old: Sitagliptin Phosphate (Januvia) 100 MG TAB 1 Tablet ORAL DAILY Qty = 30 New: Sitagliptin Phosphate (Januvia) 25 MG TABLET 1 Tablet ORAL DAILY Qty = 30 Copies To: Jony MARQUES,Ej Cantu; Mahin Nichole DPM, MD,Pete Iyer Attending MD Review Statement Documenting Attending: Dangelo De La O MD
[2017-07-01] MEDS ORDERED: VITAMIN D31000 UNI2 PO (09:13)
[2017-07-01] MEDS ORDERED: LASIX40 M1 PO (09:13)
[2017-07-01] MEDS ORDERED: RENVELA800 M1 PO (09:13)
[2017-07-01] MEDS ORDERED: NEPHRO-VITE TA0.8 MG PO (09:13)
--- NOTE | 2017-07-01 09:15 | PN- Housestaff ---
ShayLeggett 07/01/17 0914: Subjective Follow-up For: AYLEEN on CKD on HD Metabolic Acidosis- resolved Subjective: No overnight events. Patient remained afebrile now. Seen and examined this morning. Patient denied any chest pain, short of breath, nausea, vomiting, chills, fever, abdominal pain dysuria. He has right-sided tunneled catheter for dialysis. He is getting dialysis on Monday, Monday and Monday. Review of Systems Constitutional: Reports: no symptoms. EENTM: Reports: no symptoms. Cardiovascular: Reports: no symptoms. Respiratory: Reports: no symptoms. Gastrointestinal: Reports: no symptoms. Genitourinary: Reports: no symptoms. Neurological/Psychological: Reports: no symptoms. Objective Last 24 Hrs of Vital Signs/I&O Vital Signs Date Time Temp Pulse Resp B/P B/P Pulse O2 O2 Flow FiO2 Mean Ox Delivery Rate 07/01 0841 70 134/76 07/01 0838 70 134/76 07/01 0629 98.3 69 20 132/78 96 06/30 2221 98.5 77 20 138/78 97 Room Air 06/30 1351 98.3 68 20 150/80 97 Room Air 06/30 1101 67 160/82 06/30 1100 67 160/82 06/30 1056 99.1 67 20 160/82 96 Room Air Intake & Output 07/01 1600 07/01 0800 07/01 0000 Intake Total 120 650 Output Total 300 800 Balance -180 -150 Intake, Oral 120 650 Output, Urine 300 800 Physical Exam General Appearance: Alert, Oriented X3, Cooperative Skin Temp/Moisture Exam: Warm/Dry Sepsis Skin Exam (color): Normal for Ethnicity HEENT: Atraumatic, PERRLA, EOMI Neck: Supple Cardiovascular: Normal S1, Normal S2 Lungs: Clear to Auscultation, right tunneled catheter for dialysis Abdomen: Soft, No Tenderness Neurological: Normal Speech, Strength at 5/5 X4 Ext, Normal Tone, Sensation Intact Extremities: b/l pedal edema , left foot plantar surface chronic diabetic ulcer, dressing is soacked. Assessment/Plan Assessment: 56yo man with a past medical history of hypertension, hyperlipidemia, acute chronic injury on chronic kidney disease, and charcot's neuropathy with chronic left foot ulcer presented with a one-month history of worsening anasarca and mild intermittent coughing. On admission his creatinine was found to be 10 which has worsened from his previous baseline around 2. He does appear to have an acute kidney injury in the setting of chronic kidney disease with fluid overload. Acute kidney injury on chronic kidney disease/?ESRD: -CT scan of his abdomen 06/26 showed no sign of hydronephrosis or obstruction and the patient is able to pass urine freely -Monitor fluid input and output closely. -Continues to diurese well. -Will increase analgesia with dilaudidd 0.6mg q4prn. -His HIV and viral hepatitis panel screening was negative. -Will follow serologies. NAGA was negative -PO sevelemer 800 mg with meals -Replete electrolytes as necessary. -Appreciate Nephro recs. -Renal dialysis and diabetic diet -Jerome cath in place on right side. -Start vitamin D 2000 units by mouth daily -If kidney function does not improve he will be a candidate for hemodialysis versus peritoneal dialysis -will proceed with procuring an outpatient dialysis slot for him. He has not yet decided on hemodialysis versus peritoneal dialysis as his mode of renal replacement. Anasarca with fluid overload: -Diuresis with PO Lasix 80mg daily. -Strict I&Os -Daily weights -1200 mls fluid restriction -Echocardiogram - LVEF > 60%, severe left atrial dilatation, Moderate to severe tricuspid regurgitation, moderate pulmonary hypertension, dilated inferior vena cava. No regional wall motion abnormalities. Anemia: -H&H dropping, today hemoglobin is 7.4 -likely chronic secondary to CKD -s/p 4 units PRBC total. -Started on Epogen and IV iron with dialysis. -Stool guiac was negative. -Iron studies show low iron with normal Ferritin and TIBC History of Hypertension -Continue atenolol 12.5 mg daily and amlodipine 10 mg daily. -May hold amlodipine and atenolol on dialysis days. Diabetes mellitus -Hold januvia -Continue novolog sliding scale low dose -ACCUCHEKS TIDAC -Watch for hypoglycemia due to renal failure and reduced insulin clearance. Vit D deficiency: -Likely in the setting of CKD and secondary hyperparathyroidism. He does have extremely high PTH. Along with high phosphate and low vit D. -Will start replacement of Vit D once hyperphosphatemia resolves. Left foot diabetic ulcer: -Getting dressing everyday. -wound care Diet: -Renal/Diabetic diet -50 g protein, 2 g sodium, 2 g potassium, no concentrated sweets, 1200 mL fluid limit per day DVT prophylaxis -SC heparin 5000 units Q 8 hrs CODE STATUSfull code Problem List: 1. Anemia 2. Anasarca associated with disorder of kidney 3. AYLEEN (acute kidney injury) Pain Ratin Pain Location: none Pain Goal: Remain pain free Pain Plan: pain pathway Tomorrow's Labs & Rationales: cbc/bep Dangelo De La O MD 07/01/17 1227: Attending MD Review Statement Attending Statement Attending MD Statement: examined this patient, discuss w/resident/PA/FIRE SAFETY INSPECTOR, agreed w/resident/PA/FIRE SAFETY INSPECTOR, reviewed EMR data (avail) Attending Assessment/Plan: 6M PMH HTN, HLD, T2DM, CKD admitted with anasarca, uremia, and severe metabolic acidosis in the setting of acute on chronic renal failure leading to ESRD, now on hemodialysis through catheter, course complicated by anemia secondary to CKD requiring 4 units pRBC, no signs of active bleeding. No complaints today, feels well, labs improving. Hgb remains low. LLE ulcer present that is draining serosanguinous fluid. 1. ESRD on HD 2. Severe metabolic acidosis (resolved) 3. Uremia (resolved) 4. Anasarca 5. Chronic anemia secondary to CKD Plan - Continue on general medicine - Podiatry consult - Follow nephrology recommendations - Monitor CBC - Continue IV Iron and Epo - Continue Sevelamer, monitor phosphate and calcium - Continue home medications - DVT PPx - Awaiting dialysis placement
[2017-07-01 14:11] VITALS: BP 132/78
[2017-07-01 20:26] LABS: ABSOLUTE BASOPHIL COUNT 0.1 /CUMM (0.0-0.2); ABSOLUTE EOSINOPHIL COUNT 0.1 /CUMM (0.0-0.7); ABSOLUTE GRANULOCYTE CT 8.6 /CUMM (1.4-6.5); ABSOLUTE MONOCYTE COUNT 0.9 /CUMM (0.10-0.60); BASOPHIL % 0.6 % (0.0-2.0); GRANULOCYTE % 81.1 % (42.2-75.2); HEMATOCRIT 26.8 % (42-52); MEAN CORPUSCULAR HGB 24.3 PG (27.0-31.0); MEAN CORPUSCULAR HGB CONC 31.2 G/DL (33.0-37.0); MEAN CORPUSCULAR VOLUME 77.9 FL (80.0-94.0); MEAN PLATELET VOLUME 8.8 FL (7.4-10.4); PLATELET COUNT 270 /CUMM (130-400); RED BLOOD CELL CT 3.43 /CUMM (4.70-6.10); WHITE BLOOD CELL COUNT 10.6 /CUMM (4.8-10.8)
[2017-07-01 22:54] VITALS: BP 162/76
[2017-07-02 07:38] VITALS: BP 130/77
[2017-07-02 08:33] LABS: ABSOLUTE BASOPHIL COUNT 0 /CUMM (0.0-0.2); ABSOLUTE EOSINOPHIL COUNT 0.1 /CUMM (0.0-0.7); ABSOLUTE GRANULOCYTE CT 7.8 /CUMM (1.4-6.5); ABSOLUTE MONOCYTE COUNT 0.9 /CUMM (0.10-0.60); BASOPHIL % 0.4 % (0.0-2.0); GRANULOCYTE % 79.6 % (42.2-75.2); HEMATOCRIT 25.9 % (42-52); MEAN CORPUSCULAR HGB 24.3 PG (27.0-31.0); MEAN CORPUSCULAR HGB CONC 31.2 G/DL (33.0-37.0); MEAN PLATELET VOLUME 9.9 FL (7.4-10.4); PLATELET COUNT 248 /CUMM (130-400); RBC DISTRIBUTION WIDTH 19.3 % (11.5-14.5); RED BLOOD CELL CT 3.32 /CUMM (4.70-6.10); WHITE BLOOD CELL COUNT 9.8 /CUMM (4.8-10.8)
--- NOTE | 2017-07-02 10:23 | PN- Housestaff ---
ShayOxford 07/02/17 1017: Subjective Follow-up For: AYLEEN on CKD on HD Diabetic ulcer on left foot Subjective: No overnight events. Patient remained afebrile overnight. Seen and examined this morning. He denied any chest pain, short of breath, nausea, vomiting and she'll perform fever, abdominal pain dysuria. He has right-sided tunneled catheter for dialysis. He is getting dialysis on Monday, Monday and Monday. Patient will get his scheduled dialysis tomorrow. Patient has diabetic ulcer under left foot but he is not seeing any stencil maker for a long time. Today his fasting blood sugar level at 93. Review of Systems Constitutional: Reports: no symptoms. EENTM: Reports: no symptoms. Cardiovascular: Reports: no symptoms. Respiratory: Reports: no symptoms. Gastrointestinal: Reports: no symptoms. Genitourinary: Reports: no symptoms. Musculoskeletal: Reports: no symptoms. Neurological/Psychological: Reports: no symptoms. Objective Last 24 Hrs of Vital Signs/I&O Vital Signs Date Time Temp Pulse Resp B/P B/P Pulse O2 O2 Flow FiO2 Mean Ox Delivery Rate 07/02 0809 68 130/77 07/02 0808 68 130/77 07/02 0738 98.7 68 18 130/77 98 Room Air 07/01 2254 98.9 73 18 162/76 96 Room Air 07/01 1411 98.1 67 20 132/78 97 Room Air Intake & Output 07/02 1600 07/02 0800 07/02 0000 Intake Total 60 400 Output Total 750 450 Balance -690 -50 Intake, IV 10 Intake, Oral 50 400 Output, Urine 750 450 Patient 240 lb Weight Weight Bed scale Measurement Method Physical Exam General Appearance: Alert, Oriented X3, Cooperative, No Acute Distress Skin Temp/Moisture Exam: Warm/Dry Sepsis Skin Exam (color): Normal for Ethnicity HEENT: Atraumatic, PERRLA, EOMI Neck: Supple Cardiovascular: Normal S1, Normal S2 Lungs: Clear to Auscultation Abdomen: Soft, No Tenderness Neurological: Normal Speech, Strength at 5/5 X4 Ext, Normal Tone Extremities: B/L pedal edema, left foot ulcer Assessment/Plan Assessment: 56yo man with a past medical history of hypertension, hyperlipidemia, acute chronic injury on chronic kidney disease, and charcot's neuropathy with chronic left foot ulcer presented with a one-month history of worsening anasarca and mild intermittent coughing. On admission his creatinine was found to be 10 which has worsened from his previous baseline around 2. He does appear to have an acute kidney injury in the setting of chronic kidney disease with fluid overload. Acute kidney injury on chronic kidney disease/?ESRD: -CT scan of his abdomen 06/26 showed no sign of hydronephrosis or obstruction and the patient is able to pass urine freely -Monitor fluid input and output closely. -Continues to diurese well. -Will increase analgesia with dilaudidd 0.6mg q4prn. -His HIV and viral hepatitis panel screening was negative. -Will follow serologies. NAGA was negative -PO sevelemer 800 mg with meals -Replete electrolytes as necessary. -Appreciate Nephro recs. -Renal dialysis and diabetic diet -Jerome cath in place on right side. -Start vitamin D 2000 units by mouth daily -If kidney function does not improve he will be a candidate for hemodialysis versus peritoneal dialysis -will proceed with procuring an outpatient dialysis slot for him. He has not yet decided on hemodialysis versus peritoneal dialysis as his mode of renal replacement. Anasarca with fluid overload: -Diuresis with PO Lasix 80mg daily. -Strict I&Os -Daily weights -1200 mls fluid restriction -Echocardiogram - LVEF > 60%, severe left atrial dilatation, Moderate to severe tricuspid regurgitation, moderate pulmonary hypertension, dilated inferior vena cava. No regional wall motion abnormalities. Anemia: -H&H dropping, today hemoglobin is 7.4 -likely chronic secondary to CKD -s/p 4 units PRBC total. -Started on Epogen and IV iron with dialysis. -Stool guiac was negative. -Iron studies show low iron with normal Ferritin and TIBC History of Hypertension -Continue atenolol 12.5 mg daily and amlodipine 10 mg daily. -May hold amlodipine and atenolol on dialysis days. Diabetes mellitus Accu-Cheks Insulin NovoLog according to sliding scale Vit D deficiency: -Likely in the setting of CKD and secondary hyperparathyroidism. He does have extremely high PTH. Along with high phosphate and low vit D. -Will start replacement of Vit D once hyperphosphatemia resolves. Left foot diabetic ulcer: -Getting dressing everyday. -wound care -We will get podiatry consult. Diet: -Renal/Diabetic diet -50 g protein, 2 g sodium, 2 g potassium, no concentrated sweets, 1200 mL fluid limit per day DVT prophylaxis -SC heparin 5000 units Q 8 hrs CODE STATUSfull code Problem List: 1. Anasarca associated with disorder of kidney 2. Anemia 3. AYLEEN (acute kidney injury) Pain Ratin Pain Location: none Pain Goal: Remain pain free Pain Plan: pain pathway Tomorrow's Labs & Rationales: cbc/bep Dangelo De La O MD 07/02/17 1324: Attending MD Review Statement Attending Statement Attending MD Statement: examined this patient, discuss w/resident/PA/AOC OPERATIONS INTELLIGENCE CHIEF, agreed w/resident/PA/AOC OPERATIONS INTELLIGENCE CHIEF, reviewed EMR data (avail) Attending Assessment/Plan: 6M PMH HTN, HLD, T2DM, CKD admitted with anasarca, uremia, and severe metabolic acidosis in the setting of acute on chronic renal failure leading to ESRD, now on hemodialysis through catheter, course complicated by anemia secondary to CKD requiring 4 units pRBC, no signs of active bleeding. No complaints today, feels well, labs improving. Hgb remains low. LLE ulcer present that is draining serosanguinous fluid. 1. ESRD on HD 2. Severe metabolic acidosis (resolved) 3. Uremia (resolved) 4. Anasarca 5. Chronic anemia secondary to CKD Plan - Continue on general medicine - Podiatry consult - Follow nephrology recommendations - Monitor CBC - Continue IV Iron and Epo - Continue Sevelamer, monitor phosphate and calcium - Continue home medications - DVT PPx - Awaiting dialysis placement
[2017-07-02 14:02] VITALS: BP 152/78
[2017-07-02 22:04] VITALS: BP 148/72
--- NOTE | 2017-07-03 07:08 | PN- Housestaff ---
Bam MARQUES,Kerline 07/03/17 0707: Subjective Follow-up For: AYLEEN on CKD on HD Diabetic ulcer on left foot Subjective: Patient was seen and examined at bedside, afebrile, with stable vital signs he received hemodialysis this morning. Waiting for outpatient seat. Next HD on Monday Review of Systems Constitutional: Denies: no symptoms. Cardiovascular: Denies: no symptoms. Respiratory: Denies: no symptoms. Gastrointestinal: Denies: no symptoms. Genitourinary: Denies: no symptoms. Objective Last 24 Hrs of Vital Signs/I&O Vital Signs Date Time Temp Pulse Resp B/P B/P Pulse O2 O2 Flow FiO2 Mean Ox Delivery Rate 07/03 0730 98.9 72 18 142/70 95 Room Air Room Air 07/02 2204 99.1 75 20 148/72 95 Room Air 07/02 1402 97.9 67 18 152/78 96 Room Air Intake & Output 07/03 1600 07/03 0800 07/03 0000 Intake Total 300 Output Total 550 300 Balance -550 0 Intake, Oral 300 Output, Urine 550 300 Patient 242 lb Weight Physical Exam General Appearance: Alert, Oriented X3, Cooperative, No Acute Distress HEENT: Atraumatic, PERRLA, EOMI, Mucous Membr. moist/pink Neck: Supple Cardiovascular: Normal S1, Normal S2 Lungs: Clear to Auscultation Abdomen: Normal Bowel Sounds, Soft, No Tenderness Extremities: B/L pedal edema, Left foot ulcer Assessment/Plan Assessment: 56yo man with a past medical history of hypertension, hyperlipidemia, acute chronic injury on chronic kidney disease, and charcot's neuropathy with chronic left foot ulcer presented with a one-month history of worsening anasarca and mild intermittent coughing. On admission his creatinine was found to be 10 which has worsened from his previous baseline around 2. He does appear to have an acute kidney injury in the setting of chronic kidney disease with fluid overload. Acute kidney injury on chronic kidney disease/?ESRD: -Monitor fluid input and output closely. -Continue Lasix 80 mg PO daily -His HIV and viral hepatitis panel screening was negative. -Will follow serologies. NAGA was negative -PO sevelemer 800 mg with meals -Replete electrolytes as necessary. -Appreciate Nephro recs. -Renal dialysis on M, W , F -Jerome cath in place on right side. -conntinue D 2000 units by mouth daily -will proceed with procuring an outpatient dialysis slot for him. He has not yet decided on hemodialysis versus peritoneal dialysis as his mode of renal replacement. Anasarca with fluid overload: -Diuresis with PO Lasix 80mg daily. -Strict I&Os -Daily weights -1200 mls fluid restriction -Echocardiogram - LVEF > 60%, severe left atrial dilatation, Moderate to severe tricuspid regurgitation, moderate pulmonary hypertension, dilated inferior vena cava. No regional wall motion abnormalities. Anemia: -H&H dropping, today hemoglobin is 7.6 -likely chronic secondary to CKD -s/p 4 units PRBC total. -Started on Epogen and IV iron with dialysis. -Stool guiac was negative. -Iron studies show low iron with normal Ferritin and TIBC History of Hypertension -Continue atenolol 12.5 mg daily and amlodipine 10 mg daily. -May hold amlodipine and atenolol on dialysis days. Diabetes mellitus FS, 149 Accu-Cheks Insulin NovoLog according to sliding scale Vit D deficiency: -Likely in the setting of CKD and secondary hyperparathyroidism. He does have extremely high PTH. Along with high phosphate and low vit D. -Will start replacement of Vit D once hyperphosphatemia resolves. Left foot diabetic ulcer: -Getting dressing everyday. -wound care -podiatry consult placed for Dr. Pinto, will F/U on his recommendation -f/u ON LT foot XRAY and ESR to r/o OM Diet: -Renal/Diabetic diet -50 g protein, 2 g sodium, 2 g potassium, no concentrated sweets, 1200 mL fluid limit per day DVT prophylaxis mechanical CODE STATUSfull code Problem List: 1. Anemia 2. Anasarca associated with disorder of kidney 3. Acute renal failure Pain Ratin Pain Location: N/A Pain Goal: Remain pain free Pain Plan: Pain pathway Tomorrow's Labs & Rationales: CBC BEp DVT/Prophylaxis: Dangelo Martinez MD 07/03/17 1057: Attending MD Review Statement Attending Statement Attending MD Statement: examined this patient, discuss w/resident/PA/TOOLS ADMINISTRATOR, agreed w/resident/PA/TOOLS ADMINISTRATOR, reviewed EMR data (avail) Attending Assessment/Plan: 56M PMH HTN, HLD, T2DM, CKD admitted with anasarca, uremia, and severe metabolic acidosis in the setting of acute on chronic renal failure leading to ESRD, now on hemodialysis through catheter, course complicated by anemia secondary to CKD requiring 4 units pRBC, no signs of active bleeding. No complaints today, feels well, labs improving. Hgb remains low. LLE ulcer present that is draining serosanguinous fluid. 1. ESRD on HD 2. Severe metabolic acidosis (resolved) 3. Uremia (resolved) 4. Anasarca 5. Chronic anemia secondary to CKD Plan - Continue on general medicine - Podiatry consult - Follow nephrology recommendations - Monitor CBC - Continue IV Iron and Epo - Continue Sevelamer, monitor phosphate and calcium - Continue home medications - DVT PPx - Awaiting dialysis placement
[2017-07-03 07:30] VITALS: BP 142/70
[2017-07-03 08:52] LABS: ABSOLUTE BASOPHIL COUNT 0 /CUMM (0.0-0.2); ABSOLUTE EOSINOPHIL COUNT 0.1 /CUMM (0.0-0.7); ABSOLUTE GRANULOCYTE CT 9.6 /CUMM (1.4-6.5); ABSOLUTE MONOCYTE COUNT 0.8 /CUMM (0.10-0.60); BASOPHIL % 0.2 % (0.0-2.0); EOSINOPHIL % 0.8 % (0-5); GRANULOCYTE % 83.7 % (42.2-75.2); HEMATOCRIT 24.6 % (42-52); MEAN CORPUSCULAR HGB 24.1 PG (27.0-31.0); MEAN CORPUSCULAR HGB CONC 30.8 G/DL (33.0-37.0); MEAN CORPUSCULAR VOLUME 78.2 FL (80.0-94.0); PLATELET COUNT 210 /CUMM (130-400); RBC DISTRIBUTION WIDTH 20.3 % (11.5-14.5); RED BLOOD CELL CT 3.14 /CUMM (4.70-6.10); WHITE BLOOD CELL COUNT 11.5 /CUMM (4.8-10.8)
--- NOTE | 2017-07-03 10:17 | Patient Discharge Instructions ---
Discharge Instructions General Discharge Information You were seen/treated for: AYLEEN on CKD on HD Diabetic ulcer on left foot Special Instructions: 1please follow up with your primary care doctor in 1 week of discharge 2-Please follow up with kidney doctor in 1 week of discharge 3-please follow up with wound care center for diabetic foot ulcer 4-please follow up with dr. hinojosa for an mri of your left foot to check for bone infection Diet Continue normal diet: Yes Recommended Diet: Diabetic Activity Full Activity/No Limits: Yes Acute Coronary Syndrome Inclusion Criteria At DC or during hospital stay patient has or had the following: ACS DIAGNOSIS No Discharge Core Measures Meds if any: Prescribed or Continued at Discharge Meds if any: NOT Prescribed or Continued at Discharge Congestive Heart Failure Inclusion Criteria At DC or during hospital stay patient has or had the following: CHF DIAGNOSIS No Discharge Core Measures Meds if any: Prescribed or Continued at Discharge Meds if any: NOT Prescribed or Continued at Discharge Cerebrovascular accident Inclusion Criteria At DC or during hospital stay patient has or had the following: CVA/TIA Diagnosis No Discharge Core Measures Meds if any: Prescribed or Continued at Discharge Meds if any: NOT Prescribed or Continued at Discharge Venous thromboembolism Inclusion Criteria VTE Diagnosis No VTE Type NONE VTE Confirmed by (Test) NONE Discharge Core Measures - Per Current guidelines, there needs to be overlap - treatment for the first 5 days of Warfarin therapy. - If discharged on Warfarin prior to 5 days of - overlap therapy, the patient will need to be - assessed for post discharge needs including - *Post discharge parental anticoagulation - *Warfarin and/or parental anticoagulation education - *Follow up date to check INR post discharge At least 5 days overlap therapy as Inpatient No Meds if any: Prescribed or Continued at Discharge Note: Overlap Therapy is Warfarin and Anticoagulant Meds if any: NOT Prescribed or Continued at Discharge
--- NOTE | 2017-07-03 10:39 | PN- Nephrology ---
Assessment/Plan Assessment: ESRD admitted with volume overload. CHF. doing better since starting HD. Fluid removal with HD. Awaiting outpt seat. Next HD Monday. Suggestion: . Subjective Subjective: Pt on dialysis now. Comfortable. SOB better. Objective Vital Signs and I&Os 142/70 72 98.9 Lungs clear Cor RRR Abd soft Ext neg 1-2+edema Results Pertinent Lab Results: Laboratory Tests 07/03 07/02 0747 0718 Chemistry Sodium (137 - 145 mmol/L) 145 143 Potassium (3.5 - 5.1 mmol/L) 3.7 3.6 Chloride (98 - 107 mmol/L) 106 106 Carbon Dioxide (22 - 30 mmol/L) 24 20 L Anion Gap (5 - 16) 15 16 BUN (9 - 20 mg/dL) 47 H 44 H Creatinine (0.7 - 1.2 mg/dL) 6.4 *H 5.7 *H Estimated GFR (>60 ml/min) 9 L 10 L BUN/Creatinine Ratio (7 - 25 %) 7.3 7.7 Glucose (65 - 99 mg/dL) 90 Calcium (8.4 - 10.2 mg/dL) 7.0 L Hematology CBC w Diff MAN DIFF ORDERED NO MAN DIFF REQ WBC (4.8 - 10.8 /CUMM) 11.5 H 9.8 RBC (4.70 - 6.10 /CUMM) 3.14 L 3.32 L Hgb (14.0 - 18.0 G/DL) 7.6 L 8.1 L Hct (42 - 52 %) 24.6 L 25.9 L MCV (80.0 - 94.0 FL) 78.2 L 78.0 L MCH (27.0 - 31.0 PG) 24.1 L 24.3 L MCHC (33.0 - 37.0 G/DL) 30.8 L 31.2 L RDW (11.5 - 14.5 %) 20.3 H 19.3 H Plt Count (130 - 400 /CUMM) 210 248 MPV (7.4 - 10.4 FL) 9.0 9.9 Gran % (42.2 - 75.2 %) 83.7 H 79.6 H Lymphocytes % (20.5 - 51.1 %) 8.4 L 10.0 L Monocytes % (1.7 - 9.3 %) 6.9 9.0 Eosinophils % (0 - 5 %) 0.8 1.0 Basophils % (0.0 - 2.0 %) 0.2 0.4 Absolute Granulocytes (1.4 - 6.5 /CUMM) 9.6 H 7.8 H Absolute Lymphocytes (1.2 - 3.4 /CUMM) 1.0 L 1.0 L Absolute Monocytes (0.10 - 0.60 /CUMM) 0.8 H 0.9 H Absolute Eosinophils (0.0 - 0.7 /CUMM) 0.1 0.1 Absolute Basophils (0.0 - 0.2 /CUMM) 0 0 Hypochromic-Microcytic 3+ Poikilocytosis 3+ Basophilic Stippling 1+ Anisocytosis 2+ Microcytic Cells 3+ Ovalocytes 1+ Elliptocytes 1+ 07/01 07/01 1915 0725 Chemistry Sodium (137 - 145 mmol/L) 142 Potassium (3.5 - 5.1 mmol/L) 3.5 Chloride (98 - 107 mmol/L) 104 Carbon Dioxide (22 - 30 mmol/L) 24 Anion Gap (5 - 16) 14 BUN (9 - 20 mg/dL) 40 H Creatinine (0.7 - 1.2 mg/dL) 5.2 *H Estimated GFR (>60 ml/min) 12 L BUN/Creatinine Ratio (7 - 25 %) 7.7 Hematology CBC w Diff NO MAN DIFF REQ NO MAN DIFF REQ WBC (4.8 - 10.8 /CUMM) 10.6 10.9 H RBC (4.70 - 6.10 /CUMM) 3.43 L 3.20 L Hgb (14.0 - 18.0 G/DL) 8.3 L 7.7 L Hct (42 - 52 %) 26.8 L 24.8 L MCV (80.0 - 94.0 FL) 77.9 L 77.4 L MCH (27.0 - 31.0 PG) 24.3 L 24.0 L MCHC (33.0 - 37.0 G/DL) 31.2 L 31.1 L RDW (11.5 - 14.5 %) 19.0 H 19.2 H Plt Count (130 - 400 /CUMM) 270 264 MPV (7.4 - 10.4 FL) 8.8 9.6 Gran % (42.2 - 75.2 %) 81.1 H 82.5 H Lymphocytes % (20.5 - 51.1 %) 9.1 L 8.7 L Monocytes % (1.7 - 9.3 %) 8.2 7.7 Eosinophils % (0 - 5 %) 1.0 0.8 Basophils % (0.0 - 2.0 %) 0.6 0.3 Absolute Granulocytes (1.4 - 6.5 /CUMM) 8.6 H 9.0 H Absolute Lymphocytes (1.2 - 3.4 /CUMM) 1.0 L 1.0 L Absolute Monocytes (0.10 - 0.60 /CUMM) 0.9 H 0.8 H Absolute Eosinophils (0.0 - 0.7 /CUMM) 0.1 0.1 Absolute Basophils (0.0 - 0.2 /CUMM) 0.1 0 06/30 1712 Hematology CBC w Diff NO MAN DIFF REQ WBC (4.8 - 10.8 /CUMM) 10.6 RBC (4.70 - 6.10 /CUMM) 3.43 L Hgb (14.0 - 18.0 G/DL) 8.0 L Hct (42 - 52 %) 26.4 L MCV (80.0 - 94.0 FL) 76.9 L MCH (27.0 - 31.0 PG) 23.5 L MCHC (33.0 - 37.0 G/DL) 30.5 L RDW (11.5 - 14.5 %) 19.2 H Plt Count (130 - 400 /CUMM) 264 MPV (7.4 - 10.4 FL) 9.3 Gran % (42.2 - 75.2 %) 81.8 H Lymphocytes % (20.5 - 51.1 %) 8.8 L Monocytes % (1.7 - 9.3 %) 8.1 Eosinophils % (0 - 5 %) 0.7 Basophils % (0.0 - 2.0 %) 0.6 Absolute Granulocytes (1.4 - 6.5 /CUMM) 8.7 H Absolute Lymphocytes (1.2 - 3.4 /CUMM) 0.9 L Absolute Monocytes (0.10 - 0.60 /CUMM) 0.9 H Absolute Eosinophils (0.0 - 0.7 /CUMM) 0.1 Absolute Basophils (0.0 - 0.2 /CUMM) 0.1
[2017-07-03 11:51] VITALS: BP 152/74
[2017-07-03 15:13] VITALS: BP 140/70
--- NOTE | 2017-07-03 18:13 | RADIOLOGY REPORT ---
EXAMINATION: CR FOOT, LEFT CLINICAL INFORMATION: Left foot chronic ulcer. Diabetic foot ulcer. COMPARISON: Left foot films dated 06/07/2013. TECHNIQUE: AP, lateral, and oblique views of the left foot performed on 4 images. FINDINGS: Focal soft tissue defect is again seen over the plantar and lateral surface of the proximal fifth metatarsal bone in region of overlying old healed fracture deformity of the fifth metatarsal bone. There is also an old healed fracture deformity of the fourth metatarsal bone. The appearance is similar to the previous exam. Given the underlying bone abnormality, it is difficult to assess for chronic osteomyelitis. Compared to the prior exam, progressive sclerotic density of the deformed fifth metatarsal bone is seen. There are also progressive cystic changes seen at the base of the second through fifth metatarsal bones. There is mild degenerative change at the first metatarsophalangeal joint, the interphalangeal joints and the tarsometatarsal joints. Small plantar calcaneal spur is seen. No significant ankle joint effusion is noted. Extensive arteriovascular calcifications is seen. Dorsal soft tissue swelling over the forefoot is noted. IMPRESSION: 1. Soft tissue ulceration is seen over the plantar and lateral aspect of the proximal fifth metatarsal bone with underlying progressive sclerosis in region of previous old healed fracture deformity of the proximal fifth metatarsal bone. Findings may represent continued evolution of previous fracture deformity, though chronic osteomyelitis cannot be excluded. 2. Prominent cystic changes at the bases of the second through fifth metatarsal bones, progressive compared to prior exam, possibly due to degenerative change.
--- NOTE | 2017-07-03 18:17 | RADIOLOGY REPORT ---
EXAMINATION: CR PORTABLE CHEST CLINICAL INFORMATION: Decreased air entry. Question pleural effusion on the right side. COMPARISON: Chest x-ray dated 06/28/2017 and 06/26/2017. TECHNIQUE: Portable AP view of the chest was obtained. FINDINGS: Right jugular large bore catheter tip remains in the high right atrium. The cardiomediastinal silhouette appears enlarged, likely related to the AP technique. Low lung volumes are seen with mild central vascular congestion again noted. No pulmonary edema or evolving consolidation is seen. Small nodule is noted in the left lung base, superimposed upon the posterior lateral left eighth rib, unchanged from prior exam, consistent with a calcified granuloma (seen on CT scan of the abdomen from 06/26/2017). The small bilateral pleural effusions demonstrated on CT scan of the abdomen are poorly appreciated on this portable film. Bony structures are unremarkable. IMPRESSION: 1. Right jugular large bore catheter is in the high right atrium. No pneumothorax. 2. Recently demonstrated bilateral pleural effusions are not appreciated on portable x-ray. 3. Mild central vascular congestion. 4. Small calcified granuloma left lower lobe.
[2017-07-03 22:35] VITALS: BP 138/78
[2017-07-04 06:10] VITALS: BP 132/74
[2017-07-04 10:44] LABS: ABSOLUTE BASOPHIL COUNT 0 /CUMM (0.0-0.2); ABSOLUTE EOSINOPHIL COUNT 0 /CUMM (0.0-0.7); ABSOLUTE GRANULOCYTE CT 13.8 /CUMM (1.4-6.5); ABSOLUTE LYMPH COUNT 0.9 /CUMM (1.2-3.4); BASOPHIL % 0.3 % (0.0-2.0); EOSINOPHIL % 0.3 % (0-5); HEMATOCRIT 25.2 % (42-52); MEAN CORPUSCULAR HGB 24.4 PG (27.0-31.0); MEAN CORPUSCULAR HGB CONC 30.7 G/DL (33.0-37.0); MEAN CORPUSCULAR VOLUME 79.3 FL (80.0-94.0); MEAN PLATELET VOLUME 9.3 FL (7.4-10.4); PLATELET COUNT 192 /CUMM (130-400); RBC DISTRIBUTION WIDTH 20.5 % (11.5-14.5); RED BLOOD CELL CT 3.18 /CUMM (4.70-6.10); WHITE BLOOD CELL COUNT 15.9 /CUMM (4.8-10.8)
--- NOTE | 2017-07-04 11:15 | PN- Housestaff ---
See Addendum Subjective Follow-up For: acute on CKD diabetic LLE ulcer Complaints: no complaints, feels well Tele-Events Since Last Visit: none Subjective: bilateral lower extremity swelling improving left foot ulcer no erythema, tenderness or discharge Review of Systems Constitutional: Reports: see HPI. Objective Last 24 Hrs of Vital Signs/I&O Vital Signs Date Time Temp Pulse Resp B/P B/P Pulse O2 O2 Flow FiO2 Mean Ox Delivery Rate 07/04 0845 74 132/74 07/04 0844 132/74 07/04 0610 99.7 74 17 132/74 95 07/03 2235 100.1 78 16 138/78 96 Room Air 07/03 1513 99.0 74 20 140/70 95 Room Air 07/03 1205 69 152/74 07/03 1205 69 152/74 07/03 1151 98.6 69 20 152/74 96 Room Air Intake & Output 07/04 1600 07/04 0800 07/04 0000 Intake Total 250 130 Output Total 300 350 Balance -50 -220 Intake, IV 10 10 Intake, Oral 240 120 Number 0 0 Bowel Movements Output, Urine 300 350 Patient 102.682 kg Weight Physical Exam General Appearance: Alert, Oriented X3, Cooperative, No Acute Distress Neck: Supple, No JVD Cardiovascular: Regular Rate, Normal S1, Normal S2, No Murmurs Lungs: Clear to Auscultation, Normal Air Movement Abdomen: Normal Bowel Sounds, Soft, No Tenderness, No Masses Extremities: No Clubbing, No Cyanosis, 1+ bilateral lower extremity pitting edema to the knees Current Medications: Current Medications Sig/Bipin Start time Last Medication Dose Route Stop Time Status Admin Acetaminophen 650 MG Q6P PRN 06/26 1745 AC PO Amlodipine Besylate 10 MG DAILY 06/27 1000 AC 07/04 PO 0844 Atenolol 12.5 MG DAILY 06/27 1000 AC 07/04 PO 0845 Cholecalciferol 2,000 IU DAILY 06/30 1624 AC 07/04 PO 0844 Epoetin Gómez 3,000 UNIT Monday .. 06/28 1000 AC 06/28 IV 1108 Epoetin Gómez 2,000 UNIT Monday .. 06/28 0930 AC 06/28 IV 1107 Furosemide 80 MG DAILY 06/29 1000 AC 07/04 PO 0844 Furosemide 80 MG ONCE PRN 06/26 1745 AC 06/26 IV 1843 Hydromorphone HCl 0.6 MG Q4P PRN 06/29 1145 DC IV Insulin Aspart 0 TIDAC 06/27 0800 AC 07/03 SC 1711 Iron Sucrose 100 MG DAILY 06/29 1000 AC 07/04 Sodium Chloride 100 ML IV 07/08 1014 0955 Melatonin 5 MG ONCE ONE 07/03 2044 DC 07/03 PO 07/03 2045 210 Morphine Sulfate 2 MG Q4P PRN 06/26 1745 AC 06/27 IV 1453 Multivitamins 1 TAB DAILY 06/27 1348 AC 07/04 PO 0844 Sevelamer Carbonate 800 MG WM 06/26 1745 AC 07/04 PO 0727 Last 24 Hrs of Lab/Dandre Results Last 24 Hrs of Labs/Mics: Laboratory Tests 07/04/17 1017: Anion Gap 14, Estimated GFR 14 L, BUN/Creatinine Ratio 6.9 L, CBC w Diff NO MAN DIFF REQ, RBC 3.18 L, MCV 79.3 L, MCH 24.4 L, MCHC 30.7 L, RDW 20.5 H, MPV 9.3, Gran % 87.2 H, Lymphocytes % 5.7 L, Monocytes % 6.5, Eosinophils % 0.3, Basophils % 0.3, Absolute Granulocytes 13.8 H, Absolute Lymphocytes 0.9 L , Absolute Monocytes 1.0 H, Absolute Eosinophils 0, Absolute Basophils 0 Assessment/Plan Assessment: 56 year old male with PMH of HTN, HLD, CKD stage IIIA, chronic left foot ulcer presented with acute kidney injury, anasarca, and cough. Acute kidney injury: presented with fluid overload and anasarca -Admission creatinine ~10, baseline 2 -Underlying CKD stage IIIA probable secondary to progressive diabetic nephropathy -No history of NSAID, contrast exposure or other nephrotoxic agents -Monitor fluid input and output closely -Check daily weights -Continue diuresis with Lasix 80 mg PO daily -Renal dialysis diet, 1200cc fluid restriction -Appreciate nephrology recommendations -Jerome cath placed, hemodialysis Mon/Mon/Fri -Continue PO sevelemer 800mg TIDAC -Replete electrolytes as necessary. -conntinue D 2000 units by mouth daily -will proceed with procuring an outpatient dialysis slot for him. He has not yet decided on hemodialysis versus peritoneal dialysis as his mode of renal replacement. -Echocardiogram - LVEF > 60%, severe left atrial dilatation, Moderate to severe tricuspid regurgitation, moderate pulmonary hypertension, dilated inferior vena cava. No regional wall motion abnormalities. Anemia: likely chronic secondary to CKD -CBC stabilized, s/p 4 units PRBC transfused -Started on Epogen and IV iron with hemodialysis. -Stool guiac was negative. Hypertension: -Continue atenolol 12.5 mg daily and amlodipine 10 mg daily. -May hold amlodipine and atenolol on dialysis days. Diabetes mellitus: -Accuchecks TIDAC/HS, glucose 100-262 last 24 hours -Novolog insulin sliding scale Vitamin D deficiency: CKD with secondary hyperparathyroidism. -Continue Vitamin D 2000 IU daily Left lower extremity ulcer: -Concerning for possible osteomyelitis -Continue local wound care with daily dressing changes -Left foot x-ray shows soft tissue ulceration plantar and lateral aspect of the proximal fifth metatarsal bone with progressive sclerosis in region of previous old healed fracture deformity -Findings may represent continued evolution of previous fracture deformity, though chronic osteomyelitis -Podiatry consult placed for Dr. Nichole, will follow up recommendations Diabetic diet with 2g sodium and potassium restriction, 1200mL fluid restriction DVT ppx-mechanical ALPs Full code Problem List: 1. Diabetes mellitus type 2 with complications 2. HTN (hypertension) 3. HLD (hyperlipidemia) 4. AYLEEN (acute kidney injury) Pain Ratin Pain Location: n/a Pain Goal: Pain 4 or less Pain Plan: prn Tomorrow's Labs & Rationales: cbc, bep
[2017-07-04 11:22] LABS: GRANULOCYTE % 87.2 % (42.2-75.2)
[2017-07-04 14:01] VITALS: BP 134/60
--- NOTE | 2017-07-04 19:14 | Cons- Podiatry ---
General Information and HPI Consulting Request Date of Consult: 07/04/17 Requested By: Kaela Parr MD History of Present Illness: Mr. Cain is a 56 year old male with an extensive past medical history, including a recent worsening of his kidney function. He was noted on exam to have a chronic, non-healing ulcer to his left foot. The patient states that the lesion has had a waxing and waning course. Allergies/Medications Allergies: Coded Allergies: NO KNOWN ALLERGIES (NONE 06/27/17) Home Med List: Amlodipine (Norvasc 10MG) 10 MG TAB 10 MG PO DAILY bp Atenolol (Tenormin 12.5MG Tab (1/2 Of 25MG)) 12.5 MG HTAB 50 MG PO DAILY hypertension Cholecalciferol (Vitamin D3) 1,000 UNIT TABLET 2,000 IU PO DAILY supplement Furosemide (Lasix) 40 MG TABLET 80 MG PO DAILY Edema Nephro-Vitamins (Nephro-Arabella Tablet) 0.8 MG TABLET 1 TAB PO DAILY kidney health Sevelamer Carbonate (Renvela) 800 MG TABLET 800 MG PO [facility] Sitagliptin Phosphate (Januvia) 100 MG TAB 1 TAB PO DAILY DM Past History Medical History Blood Transfusion Hx: No Neurological: CHARCOT NEUROPATHY EENT: NONE Cardiovascular: hypertension, hyperlipidemia Respiratory: NONE Gastrointestinal: NONE Hepatic: NONE Renal: chronic kidney disease Musculoskeletal: NONE Psychiatric: NONE Endocrine: diabetes Blood Disorders: NONE Cancer(s): NONE FUR GLAZER/Reproductive: NONE Other Medical Hx: Charcot neuroarthropathy Surgical History Pertinent Surgical History: non-contributory Family History Relations & Conditions If Any: FATHER FH: diabetes mellitus FH: HTN (hypertension) Psychosocial History Where Do You Live? Home Who Do You Live With? self Services at Home: None Primary Language: Maltese Smoking Status: Never Smoked ETOH Use: denies use Illicit Drug Use: denies illicit drug use Living Will? no Power of Lead Pastor/HCP? no Functional Ability ADLs Independent: dressing, eating, toileting, bathing. Ambulation: independent IADLs Independent: shopping, housework, transportation. Employment History Employment: Employed Retired? no Review of Systems Review of Systems: Unremarkable except for that noted in history of present illness. Exam & Diagnostic Data Vital Signs and I&O Vital Signs Date Time Temp Pulse Resp B/P B/P Pulse O2 O2 Flow FiO2 Mean Ox Delivery Rate 07/04 1401 99.0 68 20 134/60 95 Room Air 07/04 0845 74 132/74 07/04 0844 132/74 07/04 0610 99.7 74 17 132/74 95 07/03 2235 100.1 78 16 138/78 96 Room Air Intake & Output 07/04 1600 07/04 0800 07/04 0000 07/03 1600 07/03 0800 07/03 0000 Intake Total 630 250 130 580 300 Output Total 350 300 350 625 550 300 Balance 280 -50 -220 -45 -550 0 Intake, IV 110 10 10 Intake, Oral 520 240 120 580 300 Number 0 0 Bowel Movements Output, Urine 350 300 350 625 550 300 Patient 226 lb 242 lb Weight Physical Exam: Necrotic ulcer noted to plantar left foot at level of 5th metatarsal base. Slough noted overlying mixed granular and fibrotic base. 1 cm of probing noted. Minimal serous drainage noted. Varus alignment noted. Assessment/Plan Assessment/Plan Chronic ulcer left foot. Consider MRI to rule out underlying osteomyelitis. For now, recommend daily dressing changes with xeroform and DSD. Consult Acknowledgment - Thank you for your consult request. Attending MD Review Statement Attending Statement Attending MD Statement: examined this patient
[2017-07-04 22:38] VITALS: BP 126/54
[2017-07-05 06:22] VITALS: BP 132/62
--- NOTE | 2017-07-05 07:11 | PN- Housestaff ---
See Addendum Subjective Follow-up For: AYLEEN on CKD, now on HD diabetic LLE ulcer Subjective: only complaint is about his restricted diet now that he is on hemodialysis diet Review of Systems Constitutional: Reports: see HPI. Objective Last 24 Hrs of Vital Signs/I&O Vital Signs Date Time Temp Pulse Resp B/P B/P Pulse O2 O2 Flow FiO2 Mean Ox Delivery Rate 07/05 0622 98.4 68 20 132/62 95 Room Air 07/04 2238 99.0 74 18 126/54 96 Room Air 07/04 1401 99.0 68 20 134/60 95 Room Air Intake & Output 07/05 1600 07/05 0800 07/05 0000 Intake Total 0 200 Output Total 300 Balance 0 -100 Intake, IV 0 Intake, Oral 0 200 Number 0 Bowel Movements Output, Urine 300 Patient 102.965 kg Weight Physical Exam General Appearance: Alert, Oriented X3, Cooperative, No Acute Distress Cardiovascular: Regular Rate, Normal S1, Normal S2, No Murmurs, right amanuel cath Lungs: Clear to Auscultation, Normal Air Movement Abdomen: Normal Bowel Sounds, Soft, No Tenderness, No Masses Extremities: No Clubbing, No Cyanosis, left foot lateral dorsal ulcer without erythema or drainage, 2+ lower extremity pitting edema bilateral up to the knees Current Medications: Current Medications Sig/Bipin Start time Last Medication Dose Route Stop Time Status Admin Acetaminophen 650 MG Q6P PRN 06/26 1745 AC PO Amlodipine Besylate 10 MG DAILY 06/27 1000 AC 07/04 PO 0844 Atenolol 12.5 MG DAILY 06/27 1000 AC 07/04 PO 0845 Cholecalciferol 2,000 IU DAILY 06/30 1624 AC 07/04 PO 0844 Epoetin Gómez 3,000 UNIT Monday .. 06/28 1000 AC 06/28 IV 1108 Epoetin Gómez 2,000 UNIT Monday .. 06/28 0930 AC 06/28 IV 1107 Furosemide 80 MG DAILY 06/29 1000 AC 07/04 PO 0844 Furosemide 80 MG ONCE PRN 06/26 1745 AC 06/26 IV 1843 Insulin Aspart 0 TIDAC 06/27 0800 AC 07/04 SC 1715 Iron Sucrose 100 MG DAILY 06/29 1000 AC 07/04 Sodium Chloride 100 ML IV 07/08 1014 0955 Melatonin 5 MG ONCE ONE 07/04 2144 DC 07/04 PO 07/04 2146 2159 Morphine Sulfate 2 MG Q4P PRN 06/26 1745 AC 06/27 IV 1453 Multivitamins 1 TAB DAILY 06/27 1348 AC 07/04 PO 0844 Sevelamer Carbonate 800 MG WM 06/26 1745 AC 07/04 PO 1715 Last 24 Hrs of Lab/Dandre Results Last 24 Hrs of Labs/Mics: Laboratory Tests 07/05/17 0720: Anion Gap 13, Estimated GFR 12 L, BUN/Creatinine Ratio 7.3, Calcium 7.4 L, Phosphorus 4.0, Magnesium 1.7, CBC w Diff MAN DIFF ORDERED, RBC 3.06 L, MCV 79.2 L, MCH 24.2 L, MCHC 30.6 L, RDW 20.4 H, MPV 9.4, Gran % 84.7 H, Lymphocytes % 7.7 L, Monocytes % 6.7, Eosinophils % 0.6, Basophils % 0.3, Absolute Granulocytes 11.4 H, Segmented Neutrophils 85 H, Band Neutrophils 1, Absolute Lymphocytes 1.0 L, Lymphocytes 8 L, Monocytes 3, Absolute Monocytes 0.9 H, Eosinophils 2, Absolute Eosinophils 0.1, Basophils 1, Absolute Basophils 0, Platelet Estimate VERIFIED BY SMEAR, Hypochromic-Microcytic 1+, Poikilocytosis 1+, Anisocytosis 1+, Microcytic Cells 1+, Ovalocytes 1+ 07/04/17 1017: Anion Gap 14, Estimated GFR 14 L, BUN/Creatinine Ratio 6.9 L, CBC w Diff NO MAN DIFF REQ, RBC 3.18 L, MCV 79.3 L, MCH 24.4 L, MCHC 30.7 L, RDW 20.5 H, MPV 9.3, Gran % 87.2 H, Lymphocytes % 5.7 L, Monocytes % 6.5, Eosinophils % 0.3, Basophils % 0.3, Absolute Granulocytes 13.8 H, Absolute Lymphocytes 0.9 L , Absolute Monocytes 1.0 H, Absolute Eosinophils 0, Absolute Basophils 0 Assessment/Plan Assessment: 56 year old male with PMH of HTN, HLD, CKD stage IIIA, chronic left foot ulcer presented with acute kidney injury, anasarca, and cough. Acute kidney injury: presented with fluid overload and anasarca -Admission creatinine ~10, baseline 2 -Underlying CKD stage IIIA probable secondary to progressive diabetic nephropathy -No history of NSAID, contrast exposure or other nephrotoxic agents -Monitor fluid input and output closely -Check daily weights -Continue diuresis with Lasix 80 mg PO daily -Renal dialysis diet, 1200cc fluid restriction -Appreciate nephrology recommendations -Continue hemodialysis Mon/Wed/Fri -Continue PO sevelemer 800mg TIDAC -Replete electrolytes as necessary -Awaiting outpatient hemodialysis scheduling -Echocardiogram - LVEF > 60%, severe left atrial dilatation, Moderate to severe tricuspid regurgitation, moderate pulmonary hypertension, dilated inferior vena cava. No regional wall motion abnormalities. Anemia: likely chronic secondary to CKD -CBC stabilized, s/p 4 units PRBC transfused -Started on Epogen and IV iron with hemodialysis. -Stool guiac was negative. Hypertension: -Continue atenolol 12.5 mg daily and amlodipine 10 mg daily. Diabetes mellitus: -Accuchecks TIDAC/HS -Novolog insulin sliding scale Vitamin D deficiency: CKD with secondary hyperparathyroidism. -Continue Vitamin D 2000 IU daily Left lower extremity ulcer: -Concerning for possible chronic osteomyelitis -Continue local wound care with daily dressing changes -Left foot x-ray shows soft tissue ulceration plantar and lateral aspect of the proximal fifth metatarsal bone with progressive sclerosis in region of previous old healed fracture deformity -Findings may represent continued evolution of previous fracture deformity, though chronic osteomyelitis -Podiatry consult placed for Dr. Nichole -MRI may defer as an outpatient with follow up with Dr. Nichole and wound care clinic Diabetic diet with 2g sodium and potassium restriction, 1200mL fluid restriction DVT ppx-mechanical ALPs Full code Problem List: 1. Diabetes mellitus type 2 with complications 2. HTN (hypertension) 3. HLD (hyperlipidemia) 4. AYLEEN (acute kidney injury) 5. Anasarca associated with disorder of kidney 6. ESRD (end stage renal disease) on dialysis 7. Anemia Pain Ratin Pain Location: n/a Pain Goal: Pain 4 or less Pain Plan: prn Tomorrow's Labs & Rationales: bep
[2017-07-05 08:14] LABS: ABSOLUTE BASOPHIL COUNT 0 /CUMM (0.0-0.2); ABSOLUTE EOSINOPHIL COUNT 0.1 /CUMM (0.0-0.7); ABSOLUTE GRANULOCYTE CT 11.4 /CUMM (1.4-6.5); ABSOLUTE MONOCYTE COUNT 0.9 /CUMM (0.10-0.60); BASOPHIL % 0.3 % (0.0-2.0); EOSINOPHIL % 0.6 % (0-5); GRANULOCYTE % 84.7 % (42.2-75.2); MEAN CORPUSCULAR HGB 24.2 PG (27.0-31.0); MEAN CORPUSCULAR HGB CONC 30.6 G/DL (33.0-37.0); MEAN CORPUSCULAR VOLUME 79.2 FL (80.0-94.0); MEAN PLATELET VOLUME 9.4 FL (7.4-10.4); PLATELET COUNT 178 /CUMM (130-400); RBC DISTRIBUTION WIDTH 20.4 % (11.5-14.5); RED BLOOD CELL CT 3.06 /CUMM (4.70-6.10); WHITE BLOOD CELL COUNT 13.5 /CUMM (4.8-10.8)
[2017-07-05 08:30] LABS: HEMATOCRIT 24.2 % (42-52)
[2017-07-05 09:43] LABS: HEMATOCRIT 23.9 % (42-52)
[2017-07-05 09:51] LABS: ABSOLUTE BASOPHIL COUNT 0.1 /CUMM (0.0-0.2); ABSOLUTE EOSINOPHIL COUNT 0.1 /CUMM (0.0-0.7); ABSOLUTE GRANULOCYTE CT 11.2 /CUMM (1.4-6.5); ABSOLUTE LYMPH COUNT 1.2 /CUMM (1.2-3.4); ABSOLUTE MONOCYTE COUNT 0.9 /CUMM (0.10-0.60); BASOPHIL % 0.4 % (0.0-2.0); EOSINOPHIL % 0.5 % (0-5); GRANULOCYTE % 83.5 % (42.2-75.2); MEAN CORPUSCULAR HGB 23.9 PG (27.0-31.0); MEAN CORPUSCULAR HGB CONC 30.4 G/DL (33.0-37.0); MEAN CORPUSCULAR VOLUME 78.6 FL (80.0-94.0); MEAN PLATELET VOLUME 10.9 FL (7.4-10.4); PLATELET COUNT 205 /CUMM (130-400); RBC DISTRIBUTION WIDTH 19.9 % (11.5-14.5); RED BLOOD CELL CT 3.04 /CUMM (4.70-6.10); WHITE BLOOD CELL COUNT 13.4 /CUMM (4.8-10.8)
[2017-07-05 12:12] VITALS: BP 140/70
[2017-07-05 12:17] VITALS: BP 140/70
--- NOTE | 2017-07-05 13:34 | PN- Nephrology ---
Assessment/Plan Assessment: ESRD admitted with volume overload. CHF doing better since starting HD. He had dialysis today without problems. he has an outpatient seat at [facility] for Monday at 2PM (telephone [phone]). He can be discharged today or tomorrow. Thomas Cha MD Suggestion: . Subjective Subjective: Pt dialyzed earlier. Feels great. Has outpatient seat at [facility] for monday (he should show up at 2PM) Objective Vital Signs and I&Os M NAD Wt 227lbs Skin neg rash Lungs clear Cor RRR Abd soft Ext tr edema Results Pertinent Lab Results: Laboratory Tests 07/05 07/05 07/05 1125 0905 0750 Chemistry Sodium (137 - 145 mmol/L) 142 Potassium (3.5 - 5.1 mmol/L) 3.8 Chloride (98 - 107 mmol/L) 102 Carbon Dioxide (22 - 30 mmol/L) 27 Anion Gap (5 - 16) 13 BUN (9 - 20 mg/dL) 17 39 H Creatinine (0.7 - 1.2 mg/dL) 5.2 *H Estimated GFR (>60 ml/min) 12 L BUN/Creatinine Ratio (7 - 25 %) 7.5 Glucose (65 - 99 mg/dL) 85 Calcium (8.4 - 10.2 mg/dL) Cancelled 7.4 L Phosphorus (2.5 - 4.5 mg/dL) Cancelled 4.0 Albumin (3.5 - 5.0 g/dL) 2.9 L Hematology CBC w Diff NO MAN DIFF REQ WBC (4.8 - 10.8 /CUMM) 13.4 H RBC (4.70 - 6.10 /CUMM) 3.04 L Hgb (14.0 - 18.0 G/DL) 7.3 *L Hct (42 - 52 %) 23.9 L MCV (80.0 - 94.0 FL) 78.6 L MCH (27.0 - 31.0 PG) 23.9 L MCHC (33.0 - 37.0 G/DL) 30.4 L RDW (11.5 - 14.5 %) 19.9 H Plt Count (130 - 400 /CUMM) 205 MPV (7.4 - 10.4 FL) 10.9 H Gran % (42.2 - 75.2 %) 83.5 H Lymphocytes % (20.5 - 51.1 %) 8.9 L Monocytes % (1.7 - 9.3 %) 6.7 Eosinophils % (0 - 5 %) 0.5 Basophils % (0.0 - 2.0 %) 0.4 Absolute Granulocytes (1.4 - 6.5 /CUMM) 11.2 H Absolute Lymphocytes (1.2 - 3.4 /CUMM) 1.2 Absolute Monocytes (0.10 - 0.60 /CUMM) 0.9 H Absolute Eosinophils (0.0 - 0.7 /CUMM) 0.1 Absolute Basophils (0.0 - 0.2 /CUMM) 0.1 07/05 07/04 0720 1017 Chemistry Sodium (137 - 145 mmol/L) 142 141 Potassium (3.5 - 5.1 mmol/L) 4.0 3.8 Chloride (98 - 107 mmol/L) 105 102 Carbon Dioxide (22 - 30 mmol/L) 24 26 Anion Gap (5 - 16) 13 14 BUN (9 - 20 mg/dL) 37 H 31 H Creatinine (0.7 - 1.2 mg/dL) 5.1 *H 4.5 H Estimated GFR (>60 ml/min) 12 L 14 L BUN/Creatinine Ratio (7 - 25 %) 7.3 6.9 L Calcium (8.4 - 10.2 mg/dL) 7.4 L Phosphorus (2.5 - 4.5 mg/dL) 4.0 Magnesium (1.6 - 2.3 mg/dL) 1.7 Hematology CBC w Diff MAN DIFF ORDERED NO MAN DIFF REQ WBC (4.8 - 10.8 /CUMM) 13.5 H 15.9 H RBC (4.70 - 6.10 /CUMM) 3.06 L 3.18 L Hgb (14.0 - 18.0 G/DL) 7.4 *L 7.7 L Hct (42 - 52 %) 24.2 L 25.2 L MCV (80.0 - 94.0 FL) 79.2 L 79.3 L MCH (27.0 - 31.0 PG) 24.2 L 24.4 L MCHC (33.0 - 37.0 G/DL) 30.6 L 30.7 L RDW (11.5 - 14.5 %) 20.4 H 20.5 H Plt Count (130 - 400 /CUMM) 178 192 MPV (7.4 - 10.4 FL) 9.4 9.3 Gran % (42.2 - 75.2 %) 84.7 H 87.2 H Lymphocytes % (20.5 - 51.1 %) 7.7 L 5.7 L Monocytes % (1.7 - 9.3 %) 6.7 6.5 Eosinophils % (0 - 5 %) 0.6 0.3 Basophils % (0.0 - 2.0 %) 0.3 0.3 Absolute Granulocytes (1.4 - 6.5 /CUMM) 11.4 H 13.8 H Segmented Neutrophils (42.2 - 75.2 %) 85 H Band Neutrophils (0.0 - 5.0 %) 1 Absolute Lymphocytes (1.2 - 3.4 /CUMM) 1.0 L 0.9 L Lymphocytes (20.5 - 51.1 %) 8 L Monocytes (1.7 - 9.3 %) 3 Absolute Monocytes (0.10 - 0.60 /CUMM) 0.9 H 1.0 H Eosinophils (0 - 5.0 %) 2 Absolute Eosinophils (0.0 - 0.7 /CUMM) 0.1 0 Basophils (0.0 - 2.0 %) 1 Absolute Basophils (0.0 - 0.2 /CUMM) 0 0 Platelet Estimate (ADEQUATE) VERIFIED BY SMEAR Hypochromic-Microcytic 1+ Poikilocytosis 1+ Anisocytosis 1+ Microcytic Cells 1+ Ovalocytes 1+ 07/03 07/03 07/03 0747 0600 0305 Chemistry Sodium (137 - 145 mmol/L) 145 Cancelled Potassium (3.5 - 5.1 mmol/L) 3.7 Cancelled Chloride (98 - 107 mmol/L) 106 Cancelled Carbon Dioxide (22 - 30 mmol/L) 24 Cancelled Anion Gap (5 - 16) 15 Cancelled BUN (9 - 20 mg/dL) 47 H Cancelled Creatinine (0.7 - 1.2 mg/dL) 6.4 *H Cancelled Estimated GFR (>60 ml/min) 9 L BUN/Creatinine Ratio (7 - 25 %) 7.3 Cancelled Glucose (65 - 99 mg/dL) 90 Calcium (8.4 - 10.2 mg/dL) 7.0 L Hematology CBC w Diff MAN DIFF ORDERED Cancelled WBC (4.8 - 10.8 /CUMM) 11.5 H Cancelled RBC (4.70 - 6.10 /CUMM) 3.14 L Cancelled Hgb (14.0 - 18.0 G/DL) 7.6 L Cancelled Hct (42 - 52 %) 24.6 L Cancelled MCV (80.0 - 94.0 FL) 78.2 L Cancelled MCH (27.0 - 31.0 PG) 24.1 L Cancelled MCHC (33.0 - 37.0 G/DL) 30.8 L Cancelled RDW (11.5 - 14.5 %) 20.3 H Cancelled Plt Count (130 - 400 /CUMM) 210 Cancelled MPV (7.4 - 10.4 FL) 9.0 Cancelled Gran % (42.2 - 75.2 %) 83.7 H Lymphocytes % (20.5 - 51.1 %) 8.4 L Monocytes % (1.7 - 9.3 %) 6.9 Eosinophils % (0 - 5 %) 0.8 Basophils % (0.0 - 2.0 %) 0.2 Absolute Granulocytes (1.4 - 6.5 /CUMM) 9.6 H Absolute Lymphocytes (1.2 - 3.4 /CUMM) 1.0 L Absolute Monocytes (0.10 - 0.60 /CUMM) 0.8 H Absolute Eosinophils (0.0 - 0.7 /CUMM) 0.1 Absolute Basophils (0.0 - 0.2 /CUMM) 0 Hypochromic-Microcytic 3+ Poikilocytosis 3+ Basophilic Stippling 1+ Anisocytosis 2+ Microcytic Cells 3+ Ovalocytes 1+ Elliptocytes 1+ ESR Westergren (0 - 10 MM) 25 H
[2017-07-05] MEDS ORDERED: VITAMIN D2000 UNI1 PO (13:54)
[2017-07-05] MEDS ORDERED: JANUVIA25 M1 PO (13:59)
[2017-07-05] MEDS ORDERED: NEPHRO-VITE TA0.8 MG PO (14:29)
[2017-07-05] MEDS ORDERED: RENVELA800 M1 PO (14:29)
[2017-07-05] MEDS ORDERED: LASIX40 M1 PO (14:29)
[2017-07-05] MEDS ORDERED: VITAMIN D31000 UNI2 PO (14:29)
== END 2017-07-05 15:19 | DRG 683 ==
LOC: ERH 09:39 → ERHI 12:17 → EDBEDREQ 13:37 → ERHI 13:41 → ENRESERV 06-27 15:25 → ENTRNSPT 06-27 17:50 → CRI 06-27 18:15 → CMPTRNSPT 06-27 18:19 → 2NB 06-29 15:20 → ENPENDDIS 07-05 14:31 → 2NB 07-05 15:19
PROVIDERS: Emergency Medicine; Internal Medicine; Internal Medicine Infectious Disease; Internal Medicine Nephrology; Student in an Organized Health Care Education/Training Program
PROC: 30233N1 Transfusion of Nonautologous Red Blood Cells into Peripheral Vein, Percutaneous Approach (ICD-10-PCS; 2017-06-26)
PROC: B5191ZA Fluoroscopy of Inferior Vena Cava using Low Osmolar Contrast, Guidance (ICD-10-PCS; 2017-06-27)
PROC: 06H033Z Insertion of Infusion Device into Inferior Vena Cava, Percutaneous Approach (ICD-10-PCS; 2017-06-27)
PROC: 5A1D70Z Performance of Urinary Filtration, Intermittent, Less than 6 Hours Per Day (ICD-10-PCS; principal; 2017-06-28)
DX: N17.9 Acute kidney failure, unspecified (principal); E87.2 Acidosis; E11.621 Type 2 diabetes mellitus with foot ulcer; I12.0 Hypertensive chronic kidney disease with stage 5 chronic kidney disease or end stage renal disease; N18.6 End stage renal disease; E83.39 Other disorders of phosphorus metabolism; L97.529 Non-pressure chronic ulcer of other part of left foot with unspecified severity; E78.5 Hyperlipidemia, unspecified; M14.672 Charcot's joint, left ankle and foot; Z83.3 Family history of diabetes mellitus; Z82.49 Family history of ischemic heart disease and other diseases of the circulatory system; D63.1 Anemia in chronic kidney disease; I50.9 Heart failure, unspecified; E87.70 Fluid overload, unspecified
CPT/HCPCS: 04007; 2NBSP; 84133; 84300; 86021; 86160; CCU; ERO; 36415; 71045; 73630-LT; 74176; 77001; 81001; 82436; 82570; 86920; 87040; 87086; 87389; 93005; 93010; 93306; 96374; 99291; C1752; C1769; J0885; J1644; J1756; J1940; P9016

== ENCOUNTER 2017-12-06 08:54 | Emergency (ER) | payer OTHER ==
[~2017-12-06 08:54] MED LIST changes: +JANUVIA25 M1 PO; +LASIX40 M1 PO; +NEPHRO-VITE TA0.8 MG PO; +RENVELA800 M1 PO; +VITAMIN D2000 UNI1 PO; +VITAMIN D31000 UNI2 PO
--- NOTE | 2017-12-06 09:59 | ED GENERAL ADULT ---
History of Present Illness General Chief Complaint: General Adult Stated Complaint: DELIA WU FOR BLOOD TRANSFUSION Source: patient, old records Exam Limitations: no limitations Vital Signs & Intake/Output Vital Signs & Intake/Output Vital Signs Date Time Temp Pulse Resp B/P B/P Pulse O2 O2 Flow FiO2 Mean Ox Delivery Rate 12/06 1409 98.1 79 16 182/97 100 Room Air 12/06 1147 98.1 78 20 156/83 100 Room Air Room Air 12/06 0905 97.0 114 20 163/84 95 Allergies Coded Allergies: NO KNOWN ALLERGIES (NONE 06/27/17) Reconcile Medications Amlodipine (Norvasc 10MG) 10 MG TAB 10 MG PO DAILY bp Atenolol (Tenormin 12.5MG Tab (1/2 Of 25MG)) 12.5 MG HTAB 50 MG PO DAILY hypertension Cholecalciferol (Vitamin D3) 1,000 UNIT TABLET 2,000 IU PO DAILY supplement . Furosemide (Lasix) 40 MG TABLET 80 MG PO DAILY Edema . Nephro-Vitamins (Nephro-Arabella Tablet) 0.8 MG TABLET 1 TAB PO DAILY kidney health . Sevelamer Carbonate (Renvela) 800 MG TABLET 800 MG PO [facility] . Sitagliptin Phosphate (Januvia) 25 MG TABLET 1 TAB PO DAILY dm Triage Note: PER PT SENT BY JESUS ALBERTO FOR TRANSFUSION TOLD TO GO BACK AFTERWARDS, PT DOES NOT KNOW WHAT HIS COUNTS ARE, DENIES ANY COMPLAINTS SCLERAS SL JAUNDICE Triage Nurses Notes Reviewed? yes HPI: Patient has end-stage renal disease and is on dialysis. Patient is due to dialysis this afternoon. Patient received a phone call from them stating that he needs a blood transfusion and to come to the emergency department to have it before dialysis. Patient has required blood transfusions in the past. Patient has no chronic complaint. There is no chest pain or shortness of breath. There is no abdominal pain. There is no weakness or fatigue. Past History Travel History Traveled to [place] past 21 day No Medical History Any Pertinent Medical History? 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 No Review of Systems Review of Systems Constitutional: Reports: no symptoms. Respiratory: Reports: no symptoms. Cardiovascular: Reports: no symptoms. GI: Reports: no symptoms. Neurological/Psychological: Reports: no symptoms. Immunologic/Allergic: Reports: no symptoms. Physical Exam Physical Exam General Appearance: well developed/nourished, alert, awake Eyes: Bilateral: PERRL, EOMI. Neck: normal inspection, supple Respiratory: normal breath sounds, chest non-tender, no respiratory distress, lungs clear Cardiovascular: regular rate/rhythm, normal peripheral pulses Gastrointestinal: normal bowel sounds, soft, non-tender, no organomegaly Neurologic/Psych: no motor/sensory deficits, awake, alert, oriented x 3, normal gait, normal mood/affect Core Measures ACS in differential dx? No CVA/TIA Diagnosis: No Sepsis Present: No Sepsis Focused Exam Completed? No Progress Differential Diagnoses I considered the following diagnoses in my evaluation of the patient: [Anemia] Plan of Care: Orders Procedure Date/time Status Regular Diet 12/06 L Active BLOOD PRODUCT PICKUP 12/06 1122 Active LEUKOCYTE POOR (PACKED CELLS) 12/06 1049 Active TROPONIN LEVEL 12/06 09 Complete PARTIAL THROMBOPLASTIN TIME 12/06 09 Complete PROTHROMBIN TIME 12/06 09 Complete COMPREHENSIVE METABOLIC PANEL 12/06 09 Complete CBC WITHOUT DIFFERENTIAL 12/07 911 Complete TYPE & SCREEN (NOT X-MATCH) 12/06 09 Complete Laboratory Tests 12/06/17 1020: Anion Gap 15, Estimated GFR 10 L, BUN/Creatinine Ratio 5.9 L, Glucose 313 H, Calcium 8.0 L, Total Bilirubin 0.3, AST 10 L, ALT 19 L, Alkaline Phosphatase 91, Troponin I 0.07, Total Protein 6.6, Albumin 3.0 L, Globulin 3.6, Albumin/ Globulin Ratio 0.8 L, PT 13.6 H, INR 1.24 H, APTT 28, CBC w Diff NO MAN DIFF REQ, RBC 2.62 L, MCV 85.2, MCH 26.7 L, MCHC 31.4 L, RDW 15.8 H, MPV 7.6, Gran % 78.5 H, Lymphocytes % 13.7 L, Monocytes % 6.0, Eosinophils % 1.2, Basophils % 0.6, Absolute Granulocytes 6.8 H, Absolute Lymphocytes 1.2, Absolute Monocytes 0.5, Absolute Eosinophils 0.1, Absolute Basophils 0 Initial ED EKG: none Departure Departure Disposition: HOME OR SELF CARE Condition: Stable Clinical Impression Primary Impression: Anemia Referrals: Jony MARQUES,Ej Cantu (PCP/Family) Additional Instructions: RETURN FOR ANY CONCERNS Departure Forms: Customer Survey General Discharge Information Critical Care Note Critical Care Note Critical Care Time: non-applicable
[2017-12-06 10:36] LABS: ABSOLUTE BASOPHIL COUNT 0 /CUMM (0.0-0.2); ABSOLUTE EOSINOPHIL COUNT 0.1 /CUMM (0.0-0.7); ABSOLUTE GRANULOCYTE CT 6.8 /CUMM (1.4-6.5); ABSOLUTE LYMPH COUNT 1.2 /CUMM (1.2-3.4); ABSOLUTE MONOCYTE COUNT 0.5 /CUMM (0.10-0.60); BASOPHIL % 0.6 % (0.0-2.0); EOSINOPHIL % 1.2 % (0-5); GRANULOCYTE % 78.5 % (42.2-75.2); HEMATOCRIT 22.3 % (42-52); MEAN CORPUSCULAR HGB 26.7 PG (27.0-31.0); MEAN CORPUSCULAR HGB CONC 31.4 G/DL (33.0-37.0); MEAN CORPUSCULAR VOLUME 85.2 FL (80.0-94.0); MEAN PLATELET VOLUME 7.6 FL (7.4-10.4); PLATELET COUNT 468 /CUMM (130-400); RBC DISTRIBUTION WIDTH 15.8 % (11.5-14.5); RED BLOOD CELL CT 2.62 /CUMM (4.70-6.10); WHITE BLOOD CELL COUNT 8.6 /CUMM (4.8-10.8)
[2017-12-06 10:42] LABS: PT 13.6 SEC (9.4-12.5); PTT 28 SEC (25-37)
[2017-12-06 14:09] VITALS: BP 182/97
== END 2017-12-06 14:28 ==
LOC: ERH 08:54
PROVIDERS: Physician Assistant Medical
DX: D64.9 Anemia, unspecified (principal)
CPT/HCPCS: 86920; 96374; P9016

== ENCOUNTER 2018-02-02 07:21 | Inpatient (IN) | payer OTHER ==
[~2018-02-02] VITALS: Ht 185.4 cm; Wt 90.0 kg
--- NOTE | 2018-02-02 08:01 | ED GENERAL ADULT ---
See Addendum History of Present Illness General Chief Complaint: Fall Stated Complaint: LEGB SPASMS/FALL HEAD STRIKE/LAC Source: patient Exam Limitations: no limitations, unable to give history Vital Signs & Intake/Output Vital Signs & Intake/Output Vital Signs Date Time Temp Pulse Resp B/P B/P Pulse O2 O2 Flow FiO2 Mean Ox Delivery Rate 02/02 0743 97 Room Air Room Air 02/02 723 97.4 101 20 183/90 94 Room Air Allergies Coded Allergies: NO KNOWN ALLERGIES (NONE 06/27/17) Reconcile Medications Amlodipine Besylate 10 MG TABLET 1 TAB PO DAILY HEART (Reported) Atenolol 50 MG TABLET 1 TAB PO DAILY HEART (Reported) Cholecalciferol (Vitamin D3) 1,000 UNIT TABLET 2,000 IU PO DAILY supplement . Furosemide (Lasix) 40 MG TABLET 80 MG PO DAILY Edema . Nephro-Vitamins (Nephro-Arabella Tablet) 0.8 MG TABLET 1 TAB PO DAILY kidney health . Sevelamer Carbonate (Renvela) 800 MG TABLET 800 MG PO [facility] . Sitagliptin Phosphate (Januvia) 25 MG TABLET 1 TAB PO DAILY dm Triage Note: PT TO ED C/O LEFT LEG SPASMS SINCE THIS AM. STATES IT STARTED THIS AM, CAUSING PT TO FALL TO GROUND, FALLING ONTO A WEIGHT, AND SUSTAINING A LAC TO FOREHEAD. DENIED LOC. DENIES N/V. A/OX3. THINKS LAST TETANUS WAS 3 YEARS AGO. BANDAID NOTED TO FOREHEAD, PT STATES "I THINK I NEED STITCHES". NO BLEEDING NOTED. Triage Nurses Notes Reviewed? yes HPI: 57-year-old male presents after a fall. The patient is a diabetic dependent on dialysis. The patient reports that this morning his left leg started having spasms. This caused him to fall and cause a laceration to his head. He denies nausea, vomiting or headache. His main concern is that his left leg keeps spasming. The patient denies blood thinner use. Past History Travel History Traveled to [place] past 21 day No Medical History Any Pertinent Medical History? 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 Yes Review of Systems Review of Systems Constitutional: Denies: chills, diaphoresis, fever. EENTM: Denies: blurred vision, double vision, visual changes. Respiratory: Denies: cough, hemoptysis. Cardiovascular: Denies: chest pain, edema. GI: Denies: abdominal pain, bloating, constipation. Genitourinary: Denies: discharge, dysuria. Musculoskeletal: Reports: muscle pain. Denies: back pain, gout, joint pain. Skin: Denies: cysts, change in skin color, change in hair/nails. Neurological/Psychological: Denies: anxiety, ataxia, cognitive dysfunction, confusion. Physical Exam Physical Exam General Appearance: no apparent distress, alert, awake Head: lacerations Eyes: Bilateral: PERRL, EOMI. Ears, Nose, Throat: normal pharynx, normal ENT inspection Neck: normal inspection, supple, full range of motion Respiratory: normal breath sounds, chest non-tender, no respiratory distress Cardiovascular: regular rate/rhythm Gastrointestinal: normal bowel sounds, soft, non-tender, no organomegaly Back: normal inspection, normal range of motion Neurologic/Psych: awake, alert, oriented x 3 Skin: normal color, warm/dry, cyanosis Comments: Neurological exam: The patient has normal range of motion of the left lower extremity. He is able to do the heel to knee test bilaterally. The patient has strong normal pulses in the left lower extremity. Normal color to the skin. He has mild spasms to the leg. No bony tenderness. No muscular tenderness. The skin appears normal in the left lower extremity. The patient is awake alert and oriented 3. He has no neurological deficits. Head: The patient has a stellar laceration which is non-gaping, not bleeding. Core Measures ACS in differential dx? No CVA/TIA Diagnosis: No Sepsis Present: No Sepsis Focused Exam Completed? No Progress Differential Diagnoses . Plan of Care: Orders Procedure Date/time Status Nothing by Mouth 02/02 L Active ED Holding Orders 02/02 1005 Active Vital Signs 02/02 1005 Active ACETONE 02/02 1005 Active Code Status 02/02 1005 Active Add-on Test (ER Only) 02/02 930 Active Telemetry/Infrastructure Architect 02/02 930 Active EKG 02/02 930 Active URINALYSIS 02/02 0926 Active TROPONIN LEVEL 02/02 0805 Active Saline Lock 02/02 075 Active PHOSPHORUS 02/02 075 Active MAGNESIUM 02/02 075 Active CBC WITHOUT DIFFERENTIAL 02/02 075 Complete BASIC METABOLIC PANEL 02/02 075 Active Current Medications Sig/Bipin Start time Last Medication Dose Stop Time Status Admin Sodium Chloride 1,000 ML BOLUS ONE 02/02 1000 AC (Normal Saline 0.9%) 02/02 1059 Sodium Chloride 1,000 ML BOLUS ONE 02/02 0930 AC (Normal Saline 0.9%) 02/02 1029 Laboratory Tests 02/02/18 0805: Anion Gap 13, Estimated GFR 10 L, BUN/Creatinine Ratio 6.9 L, Glucose 1038 *H, Calcium 7.8 L, Phosphorus 3.8, Magnesium 1.7, Troponin I Pending, CBC w Diff NO MAN DIFF REQ, RBC 3.69 L, MCV 84.5, MCH 26.0 L, MCHC 30.8 L, RDW 15.1 H, MPV 9.2, Gran % 89.6 H, Lymphocytes % 4.9 L, Monocytes % 5.1, Eosinophils % 0.2, Basophils % 0.2, Absolute Granulocytes 9.3 H, Absolute Lymphocytes 0.5 L, Absolute Monocytes 0.5, Absolute Eosinophils 0, Absolute Basophils 0 Initial ED EKG: none Comments: The patient had a fall due to the spasm of the left leg, we will check electrolytes since he is dialysis dependent. His dialysis is due today. My concern is for electrolyte abnormalities. The patient will be sent for a head CT scan because of the laceration. We will clean the site. It is a non-gaping nonbleeding laceration which will need skin adhesive. The patient does not have any focal neurological deficit. No other injury seen a detailed physical exam. The fall was not due to cardiopulmonary reason, he has no symptoms at this time and had history of no preceding symptoms. 1012 patient's workup shows hyperosmolar state without acidosis. The patient is hyperglycemic with a sugar over 1000. The patient will be given insulin bolus and an insulin drip. I spoke with the ICU, the patient will be admitted to the ICU. The patient will put on monitors. The patient has a laceration to the head which was closed with Dermabond. Thoroughly wash and clean. Head CT negative. Departure Departure Time of Disposition: 1010 Disposition: STILL A PATIENT Condition: Stable Clinical Impression Primary Impression: Hyperosmolar non-ketotic state in patient with type 2 diabetes mellitus Referrals: Jony MARQUES,Ej Cantu (PCP/Family) Departure Forms: Customer Survey General Discharge Information Admission Note Spoke With: Keshav MARQUES,Kaela Hudson Documentation of Exam: Documentation of any treatments & extenuating circumstances including Concerns Regarding Discharge (functional status, medication knowledge or non-compliance, living conditions, etc.) that warrant an admission rather than observation: Hyperosmolar hyperglycemic state requiring insulin drip and insulin boluses. Patient likely require dialysis. Close monitoring and ICU stay. Critical Care Note Critical Care Note Critical Care Time: 30-74 min
[2018-02-02 08:16] LABS: ABSOLUTE BASOPHIL COUNT 0 /CUMM (0.0-0.2); ABSOLUTE EOSINOPHIL COUNT 0 /CUMM (0.0-0.7); ABSOLUTE GRANULOCYTE CT 9.3 /CUMM (1.4-6.5); ABSOLUTE LYMPH COUNT 0.5 /CUMM (1.2-3.4); ABSOLUTE MONOCYTE COUNT 0.5 /CUMM (0.10-0.60); BASOPHIL % 0.2 % (0.0-2.0); EOSINOPHIL % 0.2 % (0-5); HEMATOCRIT 31.2 % (42-52); MEAN CORPUSCULAR HGB CONC 30.8 G/DL (33.0-37.0); MEAN CORPUSCULAR VOLUME 84.5 FL (80.0-94.0); MEAN PLATELET VOLUME 9.2 FL (7.4-10.4); PLATELET COUNT 248 /CUMM (130-400); RBC DISTRIBUTION WIDTH 15.1 % (11.5-14.5); RED BLOOD CELL CT 3.69 /CUMM (4.70-6.10); WHITE BLOOD CELL COUNT 10.4 /CUMM (4.8-10.8)
[2018-02-02 08:29] LABS: GRANULOCYTE % 89.6 % (42.2-75.2)
--- NOTE | 2018-02-02 08:32 | CT SCAN REPORT ---
EXAMINATION: CT HEAD WITHOUT CONTRAST CLINICAL INFORMATION: Head injury. COMPARISON: None TECHNIQUE: Contiguous axial imaging was performed from the skull base to vertex without intravenous administration of contrast. DLP: 707 mGy-cm FINDINGS: There is no evidence of acute intracranial hemorrhage, midline shift, mass effect, or extra-axial fluid collection. No evidence of hydrocephalus. Basal cisterns are patent. The calvarium is intact. The visualized paranasal sinuses and mastoid air cells are essentially clear. Atherosclerotic calcifications are seen along the intradural vertebral arteries and carotid siphons as well as along external carotid artery branches IMPRESSION: No acute intracranial hemorrhage or mass effect. Diffuse atherosclerotic calcifications, in keeping with known history of end-stage renal disease.
[2018-02-02] MEDS ORDERED: AMLODIPINE BESY10 M1 PO (09:53)
[2018-02-02] MEDS ORDERED: ATENOLOL50 M1 PO (09:54)
--- NOTE | 2018-02-02 10:12 | History & Physical ---
Bishop Oropeza 02/02/18 1012: General Information and HPI MD Statement: I have seen and personally examined SHANI BERNAL and documented this H&P. The patient is a 57 year old M who presented with a patient stated chief complaint of [leg spasms]. Source of Information: patient, old records Exam Limitations: no limitations History of Present Illness: 57-year-old gentleman past medical history significant for [id number]-[id number] diabetes mellitus on , end-stage renal disease likely secondary to diabetic nephropathy on dialysis Monday and Fridays at [facility], Charcot foot neuropathy, chronic left foot ulcer, hypertension, secondary hyperparathyroidism secondary to kidney disease, brought in for evaluation to the ED for unwitnessed fall earlier today. This morning when he woke up he started to experience left leg spasms and when he tried to walk he fell down on a weight and hit his head. Denies loss of consciousness, dizziness, headache, nausea, vomiting. 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 Apparently he has not been checking his fingersticks lately as he ran out of his lancets. Last Monday during dialysis he experienced some chills and apparently some noted erythema around his Vas-Cath he was given 2 doses of vancomycin and blood cultures were drawn. Prelim blood cultures were negative. His last dialysis was 31 January and approximately 5 L were taken out. His Jerome cath was replaced about a month ago. He was sent to the ED on December 06 for a blood transfusion prior to dialysis as his H&H was low. He was also found to be guaiac positive and referral given to see Dr. Porter this . Denies any fevers, chills, abdominal pain, bright red bleeding per rectum, constipation, hemorrhoids, rashes, headache, change in vision, numbness / weakness extremities or change in his urinary output. Allergies/Medications Allergies: Coded Allergies: NO KNOWN ALLERGIES (NONE 06/27/17) Home Med list Amlodipine Besylate 10 MG TABLET 1 TAB PO DAILY HEART (Reported) Atenolol 50 MG TABLET 1 TAB PO DAILY HEART (Reported) Cholecalciferol (Vitamin D3) 1,000 UNIT TABLET 2,000 IU PO DAILY supplement . Furosemide (Lasix) 40 MG TABLET 80 MG PO DAILY Edema . Nephro-Vitamins (Nephro-Arabella Tablet) 0.8 MG TABLET 1 TAB PO DAILY kidney health . Sevelamer Carbonate (Renvela) 800 MG TABLET 800 MG PO WM KIDNEY HEALTH . Sitagliptin Phosphate (Januvia) 25 MG TABLET 1 TAB PO DAILY dm Compliance With Home Meds: UNKNOWN Past History Travel History Traveled to [place] past 21 day No Medical History Neurological: CHARCOT NEUROPATHY EENT: NONE Cardiovascular: hypertension, hyperlipidemia Respiratory: NONE Gastrointestinal: NONE Hepatic: NONE Renal: chronic kidney disease Musculoskeletal: NONE Psychiatric: NONE Endocrine: diabetes Blood Disorders: NONE Cancer(s): NONE SAMPLE CLERK/Reproductive: NONE Other Medical Hx: Charcot neuroarthropathy History of MRSA: No History of VRE: No History of CDIFF: No Surgical History Surgical History: non-contributory Past Family/Social History Family History Relations & Conditions if any FATHER FH: diabetes mellitus FH: HTN (hypertension) Psychosocial History Where do you live? Home Who Do You Live With? self Services at Home: None Primary Language: Polish ETOH Use: denies use Illicit Drug Use: denies illicit drug use Living Will? no Power of Vp Treasurer/HCP? no Functional Ability ADLs Independent: dressing, eating, toileting, bathing. Ambulation: independent IADLs Independent: shopping, housework, transportation. 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 Exam & Diagnostic Data Last 24 Hrs of Vital Signs/I&O Vital Signs Date Time Temp Pulse Resp B/P B/P Pulse O2 O2 Flow FiO2 Mean Ox Delivery Rate 02/02 1243 99 Room Air Room Air 02/02 1200 97.3 86 18 170/80 99 Room Air Room Air 02/02 1137 78 19 161/80 98 Room Air 02/02 1033 97.6 89 18 164/86 97 Room Air 02/02 0743 97 Room Air Room Air 02/02 0723 97.4 101 20 183/90 94 Room Air Intake & Output 02/02 1600 02/02 0800 02/02 0000 Intake Total 1000 Output Total Balance 1000 Intake, IV 1000 Patient 210 lb 215 lb Weight Weight Bed scale Reported by Patient Measurement Method Physical Exam General Appearance Alert, Oriented X3, Cooperative, No Acute Distress Skin 2X3 CM chronic ulcer on plantar aspect of foot, no increased warmth, swelling or foul smelling discharge noted, Jerome-cath in right upper chest noted. sutures in place no erythema, swelling or discharge noted Skin Temp/Moisture Exam: Warm/Dry HEENT Atraumatic, PERRLA, EOMI, Mucous Membr. moist/pink, dry skin around mouth Neck Supple, No JVD Lymphatic Cervical nl Cardiovascular Regular Rate, Normal S1, Normal S2, No Murmurs Lungs Clear to Auscultation, Normal Air Movement Abdomen Normal Bowel Sounds, No Tenderness Extremities No Edema, Normal Pulses Last 24 Hrs of Labs/Dandre: Laboratory Tests 02/02/18 1230: Glucose Pending 02/02/18 1145: Anion Gap 15, Estimated GFR 10 L, BUN/Creatinine Ratio 6.9 L, Calcium 7.9 L, Magnesium 1.7, Albumin 3.1 L, 25-OH Vitamin D Total 18.6 L, PTH Intact 398.2 H 02/02/18 1005: Acetone Level Cancelled 02/02/18 0805: Anion Gap 13, Estimated GFR 10 L, BUN/Creatinine Ratio 6.9 L, Glucose 1038 *H, Hemoglobin A1c 11.5 H, Calcium 7.8 L, Phosphorus 3.8, Magnesium 1.7, Troponin I 0.01, CBC w Diff NO MAN DIFF REQ, RBC 3.69 L, MCV 84.5, MCH 26.0 L, MCHC 30.8 L, RDW 15.1 H, MPV 9.2, Gran % 89.6 H, Lymphocytes % 4.9 L, Monocytes % 5.1, Eosinophils % 0.2, Basophils % 0.2, Absolute Granulocytes 9.3 H, Absolute Lymphocytes 0.5 L, Absolute Monocytes 0.5, Absolute Eosinophils 0, Absolute Basophils 0, Acetone Level NEGATIVE Microbiology 02/03 1220 UPPER RESP: Surveillance Culture - RECD 02/03 1220 GI: Surveillance Culture - RECD Diagnostic Data EKG Results Normal sinus rhythm, rate 87, QTC 477, mild peaking of T waves in V4 and V5 as compared to previous EKG no other acute changes noted Other Results CT HEAD WO IV CONTRAST FINDINGS: There is no evidence of acute intracranial hemorrhage, midline shift, mass effect, or extra-axial fluid collection. No evidence of hydrocephalus. Basal cisterns are patent. The calvarium is intact. The visualized paranasal sinuses and mastoid air cells are essentially clear. Atherosclerotic calcifications are seen along the intradural vertebral arteries and carotid siphons as well as along external carotid artery branches IMPRESSION: No acute intracranial hemorrhage or mass effect. Diffuse atherosclerotic calcifications, in keeping with known history of end-stage renal disease. Assessment/Plan Assessment: 57-year-old gentleman past medical history significant for [id number] diabetes mellitus on Januvia, end-stage renal disease,Charcot foot neuropathy, chronic left foot ulcer, hypertension, secondary hyperparathyroidism. Found to have have hyperglycemia glucose level of 1038, non-anion gap metabolic acidosis bicarb of 21 and a chloride of 89, mild worsening kidney function with BUN of 41 creatinine of 5.9 (baseline 5.1/5.2). Assessment: Hyperosmolar hyperglycemic state in the setting of end-stage renal disease. Plan: R: stable on rm air I: Patient had 2 doses of vancomycin on Monday and Monday at [facility], preliminary blood cultures showed no growth. Obtained infectious disease consult. Repeat blood cultures if he spikes a fever or becomes hypotensive. We will watch off antibiotics for now ID consult obtained C: Blood pressure is mildly elevated we will continue to monitor closely specifically after his dialysis today. Received 2 L of normal saline in ED, will hold off on maintenance fluids for now as he is consistently fluid overloaded. We will continue his home medications of Norvasc and atenolol H: Stable H/H: 9.6/31.2 will continue to monitor M: Patient started on insulin drip in the ED with 9 units of Novolin bolus. Goal is to reduce his glucose 50-100 mg/dL/h. Stop insulin drip once glucose is around 250 and start him on insulin sliding scale per endocrine recommendations. Appreciate endocrine recommendations. Continue to monitor BEP. Fingersticks every 2 hours. Patient is undergoing dialysis today. We will hold Lasix as per nephrology recommendation. Phosphate 3.8, corrected calcium 8.2 and PTH 398.2, levels appropriate for dialysis patients per. Kidney Disease Outcomes Quality Initiative. low vit D, will continue his Vit D supplement, A: Currently n.p.o., will advance to diabetic renal diet once fingersticks are around 250 D: Subcu heparin Pain; tyelenol Full code As Ranked By This Provider Problem List: 1. ESRD (end stage renal disease) on dialysis 2. Hyperosmolar non-ketotic state in patient with type 2 diabetes mellitus Core Measures/Misc (02/19) Acute Coronary Syndrome ACS Diagnosis: No Congestive Heart Failure Congestive Heart Failure Diagnosis No Cerebrovascular Accident CVA/TIA Diagnosis: No VTE (View Protocol) VTE Risk Factors No risk factors No Mechanical VTE Prophylaxis d/t N/A MechProphylax Ordered No VTE Pharm Prophylaxis d/t NA PharmProphylax ordered Sepsis (View protocol) Sepsis Present: No If YES complete Sepsis Event Note If YES complete Sepsis Event Note Keshav MAQRUES,Kaela Hudson 02/02/18 1453: Core Measures/Misc (02/19) Sepsis (View protocol) If YES complete Sepsis Event Note If YES complete Sepsis Event Note Attending MD Review Statement Attending Statement Attending MD Statement: examined this patient, discuss w/resident/PA/SOLUTION MAKE UP OPERATOR, agreed w/resident/PA/SOLUTION MAKE UP OPERATOR, reviewed EMR data (avail), discussed with nursing, reviewed images Attending Assessment/Plan: I have personally seen and examined the patient and agree with the resident's assessment and plan as detailed above. Briefly, the patient is a 57-year-old male with a history of diabetes. The patient admits to not monitoring his blood sugar regularly at home. 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 He has been drinking Gatorade to stay hydrated. The patient presented to the emergency department for further evaluation of his aforementioned symptoms. The patient was found to be in hyperosmolar nonketotic state. An insulin drip was started after an initial bolus, and the patient was given IV fluids for hydration. He has been seen by both endocrinology and nephrology. He is currently undergoing dialysis. The patient reports feeling improved overall. We will continue to follow his blood sugars and labs as recommended by the consultants. The patient also recently was started on vancomycin for a possible Jerome cath infection. He received 2 doses earlier this week. Because of this, we will ask that the patient be evaluated by ID to determine the need for ongoing vancomycin therapy. I have discussed the plan of care with the house staff and asked them to contact me should they have any questions or if the patient has any issues.
--- NOTE | 2018-02-02 11:18 | Cons- Endocrinology ---
General Information and HPI Consulting Request Date of Consult: 02/02/18 Requested By: ICU Reason for Consult: management of hyperosmolar hyperglycemic state in the setting of renal failure, HX of diabetes type 2 Source of Information: patient, old records Exam Limitations: no limitations History of Present Illness: 57 y/o male hx of diabetes type which was diagnosed in 1987. He has diabetic kidney disease and renal failure. Now he is on hemodialysis. He was on Januvia 25 mg daily. In 06/2017, his HbA1c was 6.7%. Over the past two weeks, due to the weather, he has been drinking cold beverage on an average 4 bottles per day. His glucometer was out of order and he wasn't able to check his glucose level. He presented to ER today after he fell due to loss of balance because of having shakiness. He was found to have glucose level of 1038. He received one liter of NS bolus and 9 units of regular insulin iv bolus. He was placed on insulin drip at 9 units per hour. At 10:30 am, his FSG was still > 500. Allergies/Medications Allergies: Coded Allergies: NO KNOWN ALLERGIES (NONE 06/27/17) Home Med List: Amlodipine Besylate 10 MG TABLET 1 TAB PO DAILY HEART (Reported) Atenolol 50 MG TABLET 1 TAB PO DAILY HEART (Reported) Cholecalciferol (Vitamin D3) 1,000 UNIT TABLET 2,000 IU PO DAILY supplement . Furosemide (Lasix) 40 MG TABLET 80 MG PO DAILY Edema . Nephro-Vitamins (Nephro-Arabella Tablet) 0.8 MG TABLET 1 TAB PO DAILY kidney health . Sevelamer Carbonate (Renvela) 800 MG TABLET 800 MG PO KIDNEY HEALTH . Sitagliptin Phosphate (Januvia) 25 MG TABLET 1 TAB PO DAILY dm Review of Systems Review of Systems Constitutional: Reports: see HPI. Cardiovascular: Denies: chest pain. Respiratory: Denies: short of breath. GI: Denies: abdominal pain. Musculoskeletal: Reports: see HPI. Hematologic/Endocrine: Reports: polydipsia. 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 self Services at Home: None Primary Language: Kyrgyz ETOH Use: denies use Illicit Drug Use: denies illicit drug use Living Will? no Power of Bird Raiser/HCP? no Functional Ability ADLs Independent: dressing, eating, toileting, bathing. Ambulation: independent IADLs Independent: shopping, housework, transportation. Exam & Diagnostic Data Last 24 Hrs of Vital Signs/I&O Vital Signs Date Time Temp Pulse Resp B/P B/P Pulse O2 O2 Flow FiO2 Mean Ox Delivery Rate 02/02 1137 78 19 161/80 98 Room Air 02/02 1033 97.6 89 18 164/86 97 Room Air 02/02 0743 97 Room Air Room Air 02/02 0723 97.4 101 20 183/90 94 Room Air Intake & Output 02/02 1600 02/02 0800 02/02 0000 Intake Total 1000 Output Total Balance 1000 Intake, IV 1000 Patient 215 lb Weight Weight Reported by Patient Measurement Method Physical Exam General Appearance: no apparent distress Neck: normal inspection Respiratory: lungs clear Cardiovascular: tachycardia Gastrointestinal: soft Extremities: charcot deformity on his feet Labs/Dandre Results: Laboratory Tests 02/02 0805 Chemistry Sodium (137 - 145 mmol/L) 123 L Potassium (3.5 - 5.1 mmol/L) 4.3 Chloride (98 - 107 mmol/L) 89 L Carbon Dioxide (22 - 30 mmol/L) 21 L Anion Gap (5 - 16) 13 BUN (9 - 20 mg/dL) 41 H Creatinine (0.7 - 1.2 mg/dL) 5.9 *H Estimated GFR (>60 ml/min) 10 L BUN/Creatinine Ratio (7 - 25 %) 6.9 L Glucose (65 - 99 mg/dL) 1038 *H Hemoglobin A1c (4.2 - 5.8 %) Pending Calcium (8.4 - 10.2 mg/dL) 7.8 L Phosphorus (2.5 - 4.5 mg/dL) 3.8 Magnesium (1.6 - 2.3 mg/dL) 1.7 Troponin I (<0.11 ng/ml) 0.01 Hematology CBC w Diff NO MAN DIFF REQ WBC (4.8 - 10.8 /CUMM) 10.4 RBC (4.70 - 6.10 /CUMM) 3.69 L Hgb (14.0 - 18.0 G/DL) 9.6 L Hct (42 - 52 %) 31.2 L MCV (80.0 - 94.0 FL) 84.5 MCH (27.0 - 31.0 PG) 26.0 L MCHC (33.0 - 37.0 G/DL) 30.8 L RDW (11.5 - 14.5 %) 15.1 H Plt Count (130 - 400 /CUMM) 248 MPV (7.4 - 10.4 FL) 9.2 Gran % (42.2 - 75.2 %) 89.6 H Lymphocytes % (20.5 - 51.1 %) 4.9 L Monocytes % (1.7 - 9.3 %) 5.1 Eosinophils % (0 - 5 %) 0.2 Basophils % (0.0 - 2.0 %) 0.2 Absolute Granulocytes (1.4 - 6.5 /CUMM) 9.3 H Absolute Lymphocytes (1.2 - 3.4 /CUMM) 0.5 L Absolute Monocytes (0.10 - 0.60 /CUMM) 0.5 Absolute Eosinophils (0.0 - 0.7 /CUMM) 0 Absolute Basophils (0.0 - 0.2 /CUMM) 0 Assessment/Plan Assessment/Plan 57 y/o male hx of diabetes type which was diagnosed in 1987. He has diabetic kidney disease and renal failure. He was admitted for Hyperosmolar hyperglycemic state in the setting of renal failure. Plan: 1. decrease insulin drip rate to 5 units per hour for now; 2. repeat chemistry panel stat to find out his current glucose level as FSG was still > 500. 3. monitor FSG every one hour; 4. adjust insulin drip rate to decrease glucose level by 50-100 mg/dl/hour; 5. gentle IV hydration; 6. encourage oral water intake; 7. monitor electrolytes; 8. insulin drip will be discontinued after his glucose level is less than 250. Then he can be on consistent carbohydrates 1 diet, Novolog coverage before meals and Novolog coverage at bedtime-- detail see the inpatient DM orders: Inpatient Diabetes Orders Before Each Meal: Bolus Insulin: Novolog < 80 mg/dl: no coverage 80-100 mg/dl: no coverage 101-120 mg/dl: no coverage 121-150 mg/dl: no coverage 151-200 mg/dl: 2 units 201-250 mg/dl: 4 units 251-300 mg/dl: 6 units 301-350 mg/dl: 8 units 351-400 mg/dl: 10 units > 400 mg/dl: 12 units Bedtime: Bolus Insulin: Novolog < 80 mg/dl: no covearge 80-100 mg/dl: no coverage 101-120 mg/dl: no coverage 121-150 mg/dl: no coverage 151-200 mg/dl: no coverage 201-250 mg/dl: no coverage 251-300 mg/dl: 2 units 301-350 mg/dl: 3 units 351-400 mg/dl: 4 units > 400 mg/dl: 5 units Consult Acknowledgment - Thank you for your consult request.
[2018-02-02 12:00] VITALS: BP 170/80
--- NOTE | 2018-02-02 12:01 | Cons- Nephrology ---
General Information and HPI Consulting Request Date of Consult: 02/02/18 Requested By: Kaela Parr MD History of Present Illness: 57 yo male with ESRD due to DM on dialysis since July of this year. He has been drinking a large amount of gatorade becauses of the heat. He came to the ED today after a fall, was having leg cramps. Blood sugar was over 1000. He does not check his blood sugars at home, he states he takes Januvia. 5 days ago he had some redness at exit site of Jerome catheter, chills on dialysis and was started on Vancomycin. No growth from blood cultures drawn at that time. Last dialyzede two days ago without chills, got a second dose of vanco. Has Jerome as wants to go to [facility] but surgery held up for GI evaluation for GI bleeding. PMH: DM, Charcot joints, hypertension. SH: no smoking or Ethanol abuse FH: positive for DM but negative for ESRD. Allergies/Medications Allergies: Coded Allergies: NO KNOWN ALLERGIES (NONE 06/27/17) Home Med List: Amlodipine Besylate 10 MG TABLET 1 TAB PO DAILY HEART (Reported) Atenolol 50 MG TABLET 1 TAB PO DAILY HEART (Reported) Cholecalciferol (Vitamin D3) 1,000 UNIT TABLET 2,000 IU PO DAILY supplement . Furosemide (Lasix) 40 MG TABLET 80 MG PO DAILY Edema . Nephro-Vitamins (Nephro-Arabella Tablet) 0.8 MG TABLET 1 TAB PO DAILY kidney health . Sevelamer Carbonate (Renvela) 800 MG TABLET 800 MG PO KIDNEY HEALTH . Sitagliptin Phosphate (Januvia) 25 MG TABLET 1 TAB PO DAILY dm Current Medications: Current Medications Sig/Bipin Start time Last Medication Dose Route Stop Time Status Admin Amlodipine Besylate 10 MG DAILY 02/03 900 UNVr PO Atenolol 50 MG DAILY 02/03 900 UNVr PO Cholecalciferol 2,000 IU DAILY 02/03 900 UNVr PO Heparin Sodium 5,000 UNIT Q8 02/02 1400 UNVr (Porcine) SC Insulin Human Regular 100 UNIT Q24H 02/02 1200 UNVr Sodium Chloride 100 ML IV Insulin Human Regular 9 UNITS ONCE ONE 02/02 930 DC 02/02 IV 02/0230 Insulin Human Regular 100 UNIT ONCE ONE 02/02 0930 DC 02/02 Sodium Chloride 100 ML IV 08/31 0931 0930 Multivitamins 1 TAB DAILY 02/03 0900 UNVr PO Sevelamer Carbonate 800 MG WM 02/02 1200 UNVr PO Sodium Chloride 1,000 ML BOLUS ONE 02/02 1000 DC 02/02 IV 02/02 1059 1100 Sodium Chloride 1,000 ML BOLUS ONE 02/02 0930 DC 02/02 IV 02/02 1029 0930 Review of Systems Review of Systems: Negative except as noted above. 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 self Services at Home: None Primary Language: Iraqi ETOH Use: denies use Illicit Drug Use: denies illicit drug use Living Will? no Power of Verifying Machine Operator/HCP? no Functional Ability ADLs Independent: dressing, eating, toileting, bathing. Ambulation: independent IADLs Independent: shopping, housework, transportation. Exam & Diagnostic Data Vital Signs and I&O Vital Signs Date Time Temp Pulse Resp B/P B/P Pulse O2 O2 Flow FiO2 Mean Ox Delivery Rate 02/02 1137 78 19 161/80 98 Room Air 02/02 1033 97.6 89 18 164/86 97 Room Air 02/02 0743 97 Room Air Room Air 02/02 0723 97.4 101 20 183/90 94 Room Air Intake & Output 02/02 1600 02/02 0400 02/01 1600 02/01 0400 01/31 1600 01/31 0400 Intake Total 1000 Output Total Balance 1000 Intake, IV 1000 Patient 215 lb Weight Weight Reported by Patient Measurement Method Physical Exam: NAD VS as above Skin: no rash or induration Eyes: anicteric, PERRLA Nodes: negative cervical/inguinal Neck: no mass or thryomegaly CV: no rub or murmur, regular rhythm Lungs: clear to P&A Abd: nontender, BS positive, no organomegally Exts: no edema, Jerome catheter site with no drainage Neuro: A&O, CN intact, no axterixis. Results Pertinent Lab Results: Laboratory Tests 02/02 0805 Chemistry Sodium (137 - 145 mmol/L) 123 L Potassium (3.5 - 5.1 mmol/L) 4.3 Chloride (98 - 107 mmol/L) 89 L Carbon Dioxide (22 - 30 mmol/L) 21 L Anion Gap (5 - 16) 13 BUN (9 - 20 mg/dL) 41 H Creatinine (0.7 - 1.2 mg/dL) 5.9 *H Estimated GFR (>60 ml/min) 10 L BUN/Creatinine Ratio (7 - 25 %) 6.9 L Glucose (65 - 99 mg/dL) 1038 *H Hemoglobin A1c (4.2 - 5.8 %) Pending Calcium (8.4 - 10.2 mg/dL) 7.8 L Phosphorus (2.5 - 4.5 mg/dL) 3.8 Magnesium (1.6 - 2.3 mg/dL) 1.7 Troponin I (<0.11 ng/ml) 0.01 Hematology CBC w Diff NO MAN DIFF REQ WBC (4.8 - 10.8 /CUMM) 10.4 RBC (4.70 - 6.10 /CUMM) 3.69 L Hgb (14.0 - 18.0 G/DL) 9.6 L Hct (42 - 52 %) 31.2 L MCV (80.0 - 94.0 FL) 84.5 MCH (27.0 - 31.0 PG) 26.0 L MCHC (33.0 - 37.0 G/DL) 30.8 L RDW (11.5 - 14.5 %) 15.1 H Plt Count (130 - 400 /CUMM) 248 MPV (7.4 - 10.4 FL) 9.2 Gran % (42.2 - 75.2 %) 89.6 H Lymphocytes % (20.5 - 51.1 %) 4.9 L Monocytes % (1.7 - 9.3 %) 5.1 Eosinophils % (0 - 5 %) 0.2 Basophils % (0.0 - 2.0 %) 0.2 Absolute Granulocytes (1.4 - 6.5 /CUMM) 9.3 H Absolute Lymphocytes (1.2 - 3.4 /CUMM) 0.5 L Absolute Monocytes (0.10 - 0.60 /CUMM) 0.5 Absolute Eosinophils (0.0 - 0.7 /CUMM) 0 Absolute Basophils (0.0 - 0.2 /CUMM) 0 Assessment/Plan Assessment/Recommendations Assessment: ESRD now presents with hyperglycemia. May be due to increase sugar intake with no diabetic medcations. Patient not checking blood sugars at home. No obvioius infection and WBC not elevated. Hyponatremia is due to hyperglycemia and should correct with insulin. Potassium is on low side given hyperglycemia so will need to make sure it doesn't drop when glucose corrects. Recommendations: Would not give patient IV fluids as is large weight rosendo between dialysis and will not have gotten volume depleted from osmotic diuresis given his low renal function. Will dialyze today on 3 k bath to help keep blood sugar up. Hold Lasix for now . As exit site of catheter looks good no reason for further Vanco. Continue his outpatient EPO.
--- NOTE | 2018-02-02 14:53 | Admission Certification ---
Admission Certification Certification Statement - As attending physician, I certify that at the time of - admission, based on clinical presentation, severity of - symptoms, need for further diagnostic testing and - therapeutic interventions, and risk of adverse outcomes - without in-hospital treatment, in my clinical assessment, - this patient requires an acute hospital stay for a minimum - of two nights or longer. I have also considered psychsocial - factors such as support system, advanced age, financial - issues, cognitive issues, and failed out-patient treatments, - past re-admission history, safety of patient, and lack of - compliance as applicable. Specific rationale supporting this admission is: Hyperosmolar nonketotic state, requiring urgent dialysis and insulin infusion, the patient will require ICU care and monitoring.
[2018-02-02 16:00] VITALS: BP 146/82
[2018-02-03] VITALS: BP 128/80
[2018-02-03 08:00] VITALS: BP 160/80
--- NOTE | 2018-02-03 08:14 | PN- CRCU ---
Subjective HPI/Critical Care Issues: The patient is awake and alert. He reports feeling significantly improved. His vital signs are stable and he is afebrile. There were no overnight events reported. Objective Current Medications: Current Medications Sig/Bipin Start time Last Medication Dose Route Stop Time Status Admin Acetaminophen 650 MG Q6-PRN PRN 02/02 2345 AC PO Acetaminophen 650 MG Q6 02/02 1800 DC 02/02 PO 1722 Amlodipine Besylate 10 MG DAILY 02/03 900 AC PO Atenolol 50 MG DAILY 02/03 900 AC PO Cholecalciferol 2,000 IU DAILY 02/03 900 AC PO Epoetin Gómez 10,000 UNIT MoWeFr 02/02 1214 AC 02/02 IV 1230 Heparin Sodium 5,000 UNIT Q8 02/02 1400 AC 02/03 (Porcine) SC 0600 Insulin Aspart 0 AT BEDTIME 02/03 2100 AC 02/02 SC 2220 Insulin Aspart 0 TIDAC 02/02 1700 AC 02/02 SC 1720 Insulin Human Regular 100 UNIT Q20H 02/02 2200 CAN Sodium Chloride 100 ML IV Insulin Human Regular 9 UNITS ONCE ONE 02/02 0930 DC 02/02 IV 02/02 0931 0930 Insulin Human Regular 100 UNIT ONCE ONE 02/02 0930 DC 02/02 Sodium Chloride 100 ML IV 02/02 0931 0930 Multivitamins 1 TAB DAILY 02/03 09 AC PO Sevelamer Carbonate 800 MG WM 02/02 1200 AC 02/02 PO 1721 Sodium Chloride 1,000 ML BOLUS ONE 02/02 1000 DC 02/02 IV 02/02 1059 1100 Sodium Chloride 1,000 ML BOLUS ONE 02/02 0930 DC 02/02 IV 02/02 1029 0930 Physical Exam General Appearance Alert, Oriented X3, Cooperative, No Acute Distress Skin 2X3 CM chronic ulcer on plantar aspect of foot, no increased warmth, or discharge, Jerome-cath in right upper chest, sutures in place, no erythema, swelling or discharge Skin Temp/Moisture Exam: Warm/Dry HEENT Atraumatic, PERRLA Neck Supple Cardiovascular Regular Rate, Normal S1, Normal S2, No Murmurs Lungs Clear to Auscultation, Normal Air Movement Abdomen Normal Bowel Sounds, No Tenderness Extremities No Edema, Normal Pulses Vital Signs & I&O Last 24 Hrs of Vitals and I&O: Vital Signs Date Time Temp Pulse Resp B/P B/P Pulse O2 O2 Flow FiO2 Mean Ox Delivery Rate 02/03 0400 98 Room Air 02/03 0000 99 Room Air 02/03 0000 97.3 80 18 128/80 99 Room Air 02/02 1941 Room Air 02/02 1600 98 Room Air 02/02 1600 97.3 87 19 146/82 98 Room Air 02/02 1243 99 Room Air Room Air 02/02 1200 97.3 86 18 170/80 99 Room Air Room Air 02/02 1137 78 19 161/80 98 Room Air 02/02 1033 97.6 89 18 164/86 97 Room Air Intake & Output 02/03 1600 02/03 0800 02/03 0000 Intake Total 745 Output Total 250 5400 Balance -250 -4655 Intake, IV 25 Intake, Oral 720 Number 0 Bowel Movements Output, 5000 Dialysate Output, Urine 250 400 Patient 197 lb 196 lb Weight Weight Bed scale Bed scale Measurement Method Results Last 24 Hrs of Lab Results: Laboratory Tests 02/03/18 0415: Anion Gap 11, Estimated GFR 13 L, Glucose 187 H, Calcium 8.3 L, Phosphorus 4.0, Magnesium 1.8, Total Bilirubin 0.4, AST 9 L, ALT 21, Albumin 3.0 L 02/02/18 1510: Glucose 305 H 02/02/18 1500: Glucose Cancelled 02/02/18 1230: Glucose 660 *H 02/02/18 1145: Anion Gap 15, Estimated GFR 10 L, BUN/Creatinine Ratio 6.9 L, Calcium 7.9 L, Magnesium 1.7, Albumin 3.1 L, 25-OH Vitamin D Total 18.6 L, PTH Intact 398.2 H 02/02/18 1005: Acetone Level Cancelled 02/02/18 0805: Anion Gap 13, Estimated GFR 10 L, BUN/Creatinine Ratio 6.9 L, Glucose 1038 *H, Hemoglobin A1c 11.5 H, Calcium 7.8 L, Phosphorus 3.8, Magnesium 1.7, Troponin I 0.01, CBC w Diff NO MAN DIFF REQ, RBC 3.69 L, MCV 84.5, MCH 26.0 L, MCHC 30.8 L, RDW 15.1 H, MPV 9.2, Gran % 89.6 H, Lymphocytes % 4.9 L, Monocytes % 5.1, Eosinophils % 0.2, Basophils % 0.2, Absolute Granulocytes 9.3 H, Absolute Lymphocytes 0.5 L, Absolute Monocytes 0.5, Absolute Eosinophils 0, Absolute Basophils 0, Acetone Level NEGATIVE Impression/Plan Impression/Plan Impression/Plan: 1. Hyperosmolar hyperglycemic state in the setting of end-stage renal disease. 2. Status post Jerome cath placement with possible localized infection, ID consulted. 3. Anemia without evidence of bleeding. 4. History of hypertension. 5. History of Charcot neuroarthropathy. Recommendations: * Continue fluid and electrolyte replacement as per nephrology. * Will follow up endocrines recommendations regarding blood sugar management. * Monitor off antibiotics for now. * Monitor for signs of infection. * Continue antihypertensives. * Advancediabetic diet. * DVT prophylaxis at all times. * Will downgrade to GEN med once blood sugar is stable and frequency of Accu- Cheks/blood work has been reduced.
--- NOTE | 2018-02-03 09:28 | PN- Resident CRCU ---
Subjective HPI/CRCU Issues: HHS - resolving ESRD - MWF dialysis, recieved dialysis on monday improved kidney functions ? Catheter Associated infection - afebrile without leukocytosis, pending ID input 24 Hour Events: No acute events overnight. Patient seen and examined at bedside. Pt denies complaints. States there is been no pain to his dialysis site. States that he is tolerating his diet well. Denies fevers/chills/night sweats/chest pain/ abdominal pain/urinary symptoms/lower extremity edema Objective Vital Signs & I&O Last 8 Hrs of Vitals and I&O: Vitally stable Exam General Appearance: well developed/nourished, no apparent distress, alert, awake , comfortable Head: normal appearance Ears, Nose, Throat: normal pharynx Respiratory: normal breath sounds, lungs clear Cardiovascular: regular rate/rhythm Gastrointestinal: soft, non-tender Extremities: normal inspection, no edema Skin: intact, SHAILESH cath to r CHEST wall, no erythema or tenderness at site Skin Temp/Moisture Exam: Warm/Dry Sepsis Skin Exam (color): Normal for Ethnicity Current Medications: Current Medications Sig/Bipin Start time Last Medication Dose Route Stop Time Status Admin Acetaminophen 650 MG Q6-PRN PRN 02/02 2345 AC PO Acetaminophen 650 MG Q6 02/02 1800 DC 02/02 PO 1722 Amlodipine Besylate 10 MG DAILY 02/03 900 AC 02/03 PO 0918 Atenolol 50 MG DAILY 02/03 0900 AC 02/03 PO 0918 Cholecalciferol 2,000 IU DAILY 02/03 09 AC 02/03 PO 0918 Epoetin Gómez 10,000 UNIT MoWeFr 02/02 1214 AC 02/02 IV 1230 Heparin Sodium 5,000 UNIT Q8 02/02 1400 AC 02/03 (Porcine) SC 0600 Insulin Aspart 0 AT BEDTIME 02/03 2100 AC 02/02 SC 2220 Insulin Aspart 0 TIDAC 02/02 1700 AC 02/03 SC 0922 Insulin Human Regular 100 UNIT Q20H 02/02 2200 CAN Sodium Chloride 100 ML IV Multivitamins 1 TAB DAILY 02/03 0900 AC 02/03 PO 0917 Sevelamer Carbonate 800 MG WM 02/02 1200 AC 02/03 PO 0918 Sodium Chloride 1,000 ML BOLUS ONE 02/02 1000 DC 02/02 IV 02/02 1059 1100 Impression/Plan Impression/Problem List Impression: Edgar Cain is a 57-year-old gentleman past medical history significant for non -insulin-dependent diabetes mellitus on , end-stage renal disease likely secondary to diabetic nephropathy on dialysis Monday and Fridays at [facility], Charcot foot neuropathy, chronic left foot ulcer, hypertension, secondary hyperparathyroidism secondary to kidney disease, brought in for evaluation to the ED for unwitnessed fall after complaing of left leg cramping. He sustained a head lac that was repaired in the ED, and was found to have a glucose level of 1038, non-anion gap metabolic acidosis bicarb of 21 and a chloride of 89, mild worsening kidney function with BUN of 41 creatinine of 5.9 (baseline 5.1/5.2). Additionally, he stated that on Mondays he had chills with some redness at his dialysis site, had blood cultures 2 drawn and given a dose of vancomycin, received another dose of vancomycin on Monday with dialysis. His primary issue being managed in the ICU is hyperosmolar hyperglycemic state which has improved, end-stage renal disease which he received dialysis for on Monday, and foot ulceration which was seen by commercial loan specialist yesterday. He is stable from the ICU standpoint, and can be downgraded to general medicine today. Respiratory: stable on rm air Infectious: -Patient had 2 doses of vancomycin on Monday and Monday at [facility], preliminary blood cultures showed no growth. -ID consult appreciated. -He has been afebrile, without leukocytosis. -His dialysis access site is nonerythematous, and nontender. -He has a chronic nonhealing ulceration on the left dorsum portion of his foot, without sign or symptoms of infection. Wound consult has been appreciated. They recommend podiatry consult. Cardiovascular: Stable -He has been in normal sinus rhythm overnight, rate of 74-88 with an occasional PVC. -His pressures have been 113-170 systolic over 68-90 diastolic. -We will continue his home medications of Norvasc and atenolol Hematologic: Stable H/H: 9.6/31.2 will continue to monitor. Chronic anemia likely 2/2 ESRD Metabolic: improving, FSG 231 -Patient was started on insulin drip in the ED with 9 units of Novolin bolus. Goal was to reduce his glucose 50-100 mg/dL/h. Insulin drip was stopped once glucose was around 250 and he was started on insulin sliding scale and a diet per endocrine recommendations. -Appreciate endocrine recommendations. -Continue to monitor BEP. Fingersticks initially every 2 hours but can decreased to TID/AC. -Patient is s/p dialysis yesterday. -We will hold Lasix as per nephrology recommendation. -Will continue his Vit D supplement Alimentary: Tolerating cc 1 diet with 2g sodium, 2g phosphate Neurologic: Stable Nephro: Stable Improvement in renal function, BUN/creatinine 26/4.7 compared to 41/5.9 predialysis DVT ppx: Subcu heparin Pain; tyelenol Full code Problem List: 1. ESRD (end stage renal disease) on dialysis 2. Hyperosmolar non-ketotic state in patient with type 2 diabetes mellitus Pain Ratin Tomorrow's Labs & Rationales: bep Plan DVT/Prophylaxis: mechanical, pharmacological
--- NOTE | 2018-02-03 10:11 | Cons- Infect Disease ---
General Information and HPI Consulting Request Date of Consult: 02/03/18 Requested By: Kaela Parr MD Reason for Consult: Eval cath infection Source of Information: primary team Exam Limitations: clinical condition History of Present Illness: 57-year-old gentleman past medical history significant for jxu-cadnizm-weikzkifh diabetes mellitus on , end-stage renal disease likely secondary to diabetic nephropathy on dialysis Monday and Fridays, Charcot foot neuropathy, chronic left foot ulcer, hypertension, secondary hyperparathyroidism secondary to kidney disease, brought in for evaluation to the ED for unwitnessed fall on 02/02/18. This morning when he woke up he started to experience left leg spasms and when he tried to walk he fell down on a weight and hit his head. Denies loss of consciousness, dizziness, headache, nausea, vomiting. Last Monday during dialysis he experienced some chills and apparently some noted erythema around his Vas-Cath he was given 2 doses of vancomycin and blood cultures were drawn. Prelim blood cultures were negative. His last dialysis was 31 January and approximately 5 L were taken out. His Jerome cath was replaced about a month ago. reports no local discomfort or drainage cath site. Denies any fevers, chills, abdominal pain, bright red bleeding per rectum, constipation, hemorrhoids, rashes, headache, change in vision, numbness / weakness extremities or change in his urinary output. Allergies/Medications Allergies: Coded Allergies: NO KNOWN ALLERGIES (NONE 06/27/17) Home Med List: Amlodipine Besylate 10 MG TABLET 1 TAB PO DAILY HEART (Reported) Atenolol 50 MG TABLET 1 TAB PO DAILY HEART (Reported) Cholecalciferol (Vitamin D3) 1,000 UNIT TABLET 2,000 IU PO DAILY supplement . Furosemide (Lasix) 40 MG TABLET 80 MG PO DAILY Edema . Nephro-Vitamins (Nephro-Arabella Tablet) 0.8 MG TABLET 1 TAB PO DAILY kidney health . Sevelamer Carbonate (Renvela) 800 MG TABLET 800 MG PO WM KIDNEY HEALTH . Sitagliptin Phosphate (Januvia) 25 MG TABLET 1 TAB PO DAILY dm Current Medications: Current Medications Sig/Bipin Start time Last Medication Dose Route Stop Time Status Admin Acetaminophen 650 MG Q6-PRN PRN 02/02 2345 AC PO Acetaminophen 650 MG Q6 02/02 1800 DC 02/02 PO 1722 Amlodipine Besylate 10 MG DAILY 02/03 900 AC 02/03 PO 0918 Atenolol 50 MG DAILY 02/03 09 AC 02/03 PO 18 Cholecalciferol 2,000 IU DAILY 02/03 900 AC 02/03 PO 917 Epoetin Gómez 10,000 UNIT MoWeFr 02/02 1214 AC 02/02 IV 1230 Heparin Sodium 5,000 UNIT Q8 02/02 1400 AC 02/03 (Porcine) SC 06 Insulin Aspart 0 AT BEDTIME 02/03 2100 AC 02/02 SC 2220 Insulin Aspart 0 TIDAC 02/02 1700 AC 02/03 SC 0922 Insulin Human Regular 100 UNIT Q20H 02/02 2200 CAN Sodium Chloride 100 ML IV Multivitamins 1 TAB DAILY 02/03 09 AC 02/03 PO 09 Sevelamer Carbonate 800 MG WM 02/02 1200 AC 02/03 PO 0918 Sodium Chloride 1,000 ML BOLUS ONE 02/02 1000 DC 02/02 IV 02/02 1059 1100 Sodium Chloride 1,000 ML BOLUS ONE 02/02 0930 DC 02/02 IV 02/02 1029 0930 Past History Travel History Traveled to [place] past 21 day No Medical History Blood Transfusion Hx: No Neurological: CHARCOT NEUROPATHY EENT: NONE Cardiovascular: hypertension, hyperlipidemia Respiratory: NONE Gastrointestinal: NONE Hepatic: NONE Renal: chronic kidney disease Musculoskeletal: NONE Psychiatric: NONE Endocrine: diabetes Blood Disorders: NONE Cancer(s): NONE COUNTER WAITER/Reproductive: NONE Other Medical Hx: Charcot neuroarthropathy History of MRSA: No History of VRE: No History of CDIFF: No Isolation History: Standard Surgical History Surgical History: non-contributory Family History Relations & Conditions If Any: FATHER FH: diabetes mellitus FH: HTN (hypertension) Psychosocial History Where Do You Live? Home Who Do You Live With? self Services at Home: None Primary Language: Turkish Smoking Status: Never Smoked ETOH Use: denies use Illicit Drug Use: denies illicit drug use Living Will? no Power of Hand Plug Shaper/HCP? no Functional Ability ADLs Independent: dressing, eating, toileting, bathing. Ambulation: independent IADLs Independent: shopping, housework, transportation. Employment History Employment: Employed ([employer]) Review of Systems Comments 12 points reviewed as noted, otherwise negative. Exam & Diagnostic Data Last 24 Hrs of Vital Signs/I&O Vital Signs Date Time Temp Pulse Resp B/P B/P Pulse O2 O2 Flow FiO2 Mean Ox Delivery Rate 02/03 918 90 177/02/03 0918 90 17702/03 0400 98 Room Air 02/03 0000 99 Room Air 02/03 0000 97.3 80 18 128/80 99 Room Air 02/02 1941 Room Air 02/02 1600 98 Room Air 02/02 1600 97.3 87 19 146/82 98 Room Air 02/02 1243 99 Room Air Room Air 02/02 1200 97.3 86 18 170/80 99 Room Air Room Air 02/02 1137 78 19 161/80 98 Room Air 02/02 1033 97.6 89 18 164/86 97 Room Air Intake & Output 02/03 1600 02/03 0800 02/03 0000 Intake Total 745 Output Total 250 5400 Balance -250 -4655 Intake, IV 25 Intake, Oral 720 Number 0 Bowel Movements Output, 5000 Dialysate Output, Urine 250 400 Patient 197 lb 196 lb Weight Weight Bed scale Bed scale Measurement Method Physical Exam Other Physical Findings: General Appearance Cooperative, No Acute Distress Skin 2X3 CM chronic ulcer on plantar aspect of foot, no increased warmth, or discharge, Jerome-cath in right upper chest, sutures in place, no swelling or discharge; only faint erythema at 12 o'clock Skin Temp/Moisture Exam: Warm/Dry HEENT Atraumatic, sclera anicteric Neck Supple Cardiovascular Regular Rate, Normal S1, Normal S2, No Murmurs Lungs Clear to Auscultation, Normal Air Movement Abdomen Normal Bowel Sounds, No Tenderness Extremities No Edema, Normal Pulses Neuro: Alert, Oriented X3, Last 24 Hours of Lab Results: Laboratory Tests 02/03 02/02 02/02 02/02 0415 1510 1500 1230 Chemistry Sodium (137 - 145 mmol/L) 137 Potassium (3.5 - 5.1 mmol/L) 3.6 Chloride (98 - 107 mmol/L) 104 Carbon Dioxide (22 - 30 mmol/L) 23 Anion Gap (5 - 16) 11 BUN (9 - 20 mg/dL) 26 H Creatinine (0.7 - 1.2 mg/dL) 4.7 H Estimated GFR (>60 ml/min) 13 L Glucose (65 - 99 mg/dL) 187 H 305 H Cancelled 660 *H Calcium (8.4 - 10.2 mg/dL) 8.3 L Phosphorus (2.5 - 4.5 mg/dL) 4.0 Magnesium (1.6 - 2.3 mg/dL) 1.8 Total Bilirubin (0.2 - 1.3 mg/dL) 0.4 AST (17 - 59 U/L) 9 L ALT (21 - 72 U/L) 21 Albumin (3.5 - 5.0 g/dL) 3.0 L 02/02 1145 Chemistry Sodium (137 - 145 mmol/L) 126 L Potassium (3.5 - 5.1 mmol/L) 3.7 Chloride (98 - 107 mmol/L) 93 L Carbon Dioxide (22 - 30 mmol/L) 19 L Anion Gap (5 - 16) 15 BUN (9 - 20 mg/dL) 41 H Creatinine (0.7 - 1.2 mg/dL) 5.9 *H Estimated GFR (>60 ml/min) 10 L BUN/Creatinine Ratio (7 - 25 %) 6.9 L Calcium (8.4 - 10.2 mg/dL) 7.9 L Magnesium (1.6 - 2.3 mg/dL) 1.7 Albumin (3.5 - 5.0 g/dL) 3.1 L 25-OH Vitamin D Total (30 - 100 ng/ml) 18.6 L PTH Intact (18.4 - 80.1 pg/ML) 398.2 H Last 24 Hours of Dandre Results: SPEC #: [id number] IRVIN: 02/02/181220 STATUS: RECD RECD: 02/02/18-[address]: Keshav MARQUES,Kaela Hudson SOURCE: UPPER RESP ENTR: 02/02/18-[address]: Jony MARQUES,Ej Cantu SPDESC: JENNIFER Oseguera MD,[facility] ORDERED: ACT SURV NARES Procedure Result ACT SURV NARES CULTURE TAKES MINIMUM OF 24 HOURS FROM RECEIPT Diagnostic Data Recent Imaging Findings: NDINGS: There is no evidence of acute intracranial hemorrhage, midline shift, mass effect, or extra-axial fluid collection. No evidence of hydrocephalus. Basal cisterns are patent. The calvarium is intact. The visualized paranasal sinuses and mastoid air cells are essentially clear. Atherosclerotic calcifications are seen along the intradural vertebral arteries and carotid siphons as well as along external carotid artery branches IMPRESSION: No acute intracranial hemorrhage or mass effect. Diffuse atherosclerotic calcifications, in keeping with known history of end-stage renal disease. DICTATED BY: Misael Buck MD DATE/TIME DICTATED:02/02/18821 CLIENT SERVICE CONSULTANT:TC DATE/TIME TRANSCRIBED:02/02/18821 CONFIDENTIAL, DO NOT COPY WITHOUT APPROPRIATE AUTHORIZATION. Assessment/Plan Assessment/Plan Impression: 57-year-old gentleman past medical history significant for obu-lwkmzgv-xbiegzyys diabetes mellitus on , end-stage renal disease likely secondary to diabetic nephropathy on dialysis Monday and Fridays, Charcot foot neuropathy, chronic left foot ulcer, hypertension, secondary hyperparathyroidism secondary to kidney disease admitted 02/02/18. Eval infection HD cath Suggestion: 1. Observe off abx; local care cath site per protocol. 2. Monitor clinically; if fever/chills, worsening erythema please call. 3. F/u nasal MRSa surv cx results. Consult Acknowledgment - Thank you for your consult request.
--- NOTE | 2018-02-03 11:44 | PN- Diabetes ---
Assessment/Plan Diabetes Assessment: 57 y/o male hx of diabetes type which was diagnosed in 1987. He has diabetic kidney disease and renal failure. He was admitted for Hyperosmolar hyperglycemic state in the setting of renal failure. He was on an insulin drip on 02/02/2018 which was discontinued after his glucose level was less than 250. Now he is on Novolog coverage before meals and Novolog coverage at bedtime. His FSGs were 227, 211, 247, 238 and 243. Clinically he has been feeling better. Blood work showed calcium 7.9, albumin 3.1, 25 OH vitamin D 18.6 and PTH 398.2. Patient was started on vitamin D 2000 units daily. Plan: 1. increase Novolog coverage before meals; detail see the inpatient DM order; 2. continue the current Novolog coverage at bedtime; 3. monitor FSGs. will follow. Inpatient Diabetes Orders Before Each Meal: Bolus Insulin: Novolog < 80 mg/dl: no coverage 80-100 mg/dl: 2 units 101-120 mg/dl: 2 units 121-150 mg/dl: 2 units 151-200 mg/dl: 3 units 201-250 mg/dl: 4 units 251-300 mg/dl: 5 units 301-350 mg/dl: 6 units 351-400 mg/dl: 7 units > 400 mg/dl: 8 units Subjective Subjective: He feels better. Objective Last 24 Hrs of Vital Signs/I&O Vital Signs Date Time Temp Pulse Resp B/P B/P Pulse O2 O2 Flow FiO2 Mean Ox Delivery Rate 02/03 0918 90 177/92 02/03 0918 90 177/92 02/03 0800 97.9 80 20 160/80 100 Room Air 02/03 0400 98 Room Air 02/03 0000 99 Room Air 02/03 0000 97.3 80 18 128/80 99 Room Air 02/02 1941 Room Air 02/02 1600 98 Room Air 02/02 1600 97.3 87 19 146/82 98 Room Air 02/02 1243 99 Room Air Room Air 02/02 1200 97.3 86 18 170/80 99 Room Air Room Air 02/02 1137 78 19 161/80 98 Room Air Intake & Output 02/03 1600 02/03 0800 09 0000 Intake Total 745 Output Total 250 5400 Balance -250 -4655 Intake, IV 25 Intake, Oral 720 Number 0 Bowel Movements Output, 5000 Dialysate Output, Urine 250 400 Patient 197 lb 196 lb Weight Weight Bed scale Bed scale Measurement Method Findings Pertinent Lab/Dandre Results: Laboratory Tests 02/03 02/02 02/02 02/02 0415 1510 1500 1230 Chemistry Sodium (137 - 145 mmol/L) 137 Potassium (3.5 - 5.1 mmol/L) 3.6 Chloride (98 - 107 mmol/L) 104 Carbon Dioxide (22 - 30 mmol/L) 23 Anion Gap (5 - 16) 11 BUN (9 - 20 mg/dL) 26 H Creatinine (0.7 - 1.2 mg/dL) 4.7 H Estimated GFR (>60 ml/min) 13 L Glucose (65 - 99 mg/dL) 187 H 305 H Cancelled 660 *H Calcium (8.4 - 10.2 mg/dL) 8.3 L Phosphorus (2.5 - 4.5 mg/dL) 4.0 Magnesium (1.6 - 2.3 mg/dL) 1.8 Total Bilirubin (0.2 - 1.3 mg/dL) 0.4 AST (17 - 59 U/L) 9 L ALT (21 - 72 U/L) 21 Albumin (3.5 - 5.0 g/dL) 3.0 L 02/02 1145 Chemistry Sodium (137 - 145 mmol/L) 126 L Potassium (3.5 - 5.1 mmol/L) 3.7 Chloride (98 - 107 mmol/L) 93 L Carbon Dioxide (22 - 30 mmol/L) 19 L Anion Gap (5 - 16) 15 BUN (9 - 20 mg/dL) 41 H Creatinine (0.7 - 1.2 mg/dL) 5.9 *H Estimated GFR (>60 ml/min) 10 L BUN/Creatinine Ratio (7 - 25 %) 6.9 L Calcium (8.4 - 10.2 mg/dL) 7.9 L Magnesium (1.6 - 2.3 mg/dL) 1.7 Albumin (3.5 - 5.0 g/dL) 3.1 L 25-OH Vitamin D Total (30 - 100 ng/ml) 18.6 L PTH Intact (18.4 - 80.1 pg/ML) 398.2 H
[2018-02-03 15:57] VITALS: BP 140/80
[2018-02-03 20:00] VITALS: BP 148/78
[2018-02-04 07:11] VITALS: BP 136/72
--- NOTE | 2018-02-04 08:46 | PN- Housestaff ---
See Addendum Subjective Follow-up For: Hyperosmolar Hyperglycemic State ESRD on HD Subjective: Patient seen and examined at bedside this morning. Patient febrile at 100.2 at 8PM on 02/03. Otherwise, afebrile with normal vital signs this morning. Patient seen by Dr. Fair of endocrinology who has started levemir and changed novolog sliding scale. Patient denies any complaints and has never been on insulin. Review of Systems Constitutional: Denies: see HPI. Objective Last 24 Hrs of Vital Signs/I&O Vital Signs Date Time Temp Pulse Resp B/P B/P Pulse O2 O2 Flow FiO2 Mean Ox Delivery Rate 02/04 734 98.3 79 20 136/72 02/04 0734 98.3 79 20 136/72 02/04 0711 98.3 79 20 136/72 97 02/03 2148 99.1 02/04 2000 100.2 83 20 148/78 97 02/03 1557 98.9 76 16 140/80 98 Intake & Output 02/04 1600 02/04 0800 02/04 0000 Intake Total 0 600 Output Total Balance 0 600 Intake, IV 0 Intake, Oral 0 600 Number 0 Bowel Movements Patient 198 lb Weight Physical Exam General Appearance: Alert, Oriented X3, Cooperative Skin: No Rashes, No Breakdown, 2x3 cm chronic ulcer on plantar aspect of left foot, no dischage/warmth Jerome catheter on right upper chest with faint erythema at top Neck: No JVD, No thryomegaly Cardiovascular: Normal S1, Normal S2 Lungs: Clear to Auscultation, Normal Air Movement Abdomen: Normal Bowel Sounds, Soft, No Tenderness Extremities: No Cyanosis, No Edema Vascular: Normal Pulses Current Medications: Current Medications Sig/Bipin Start time Last Medication Dose Route Stop Time Status Admin Acetaminophen 650 MG Q6-PRN PRN 02/02 2345 AC PO Amlodipine Besylate 10 MG DAILY 02/03 900 AC 02/04 PO 0734 Atenolol 50 MG DAILY 02/03 900 AC 02/04 PO 0734 Cholecalciferol 2,000 IU DAILY 02/03 900 AC 02/04 PO 0734 Epoetin Gómez 10,000 UNIT MoWeFr 02/02 1214 AC 02/02 IV 1230 Heparin Sodium 5,000 UNIT Q8 02/02 1400 AC 02/04 (Porcine) SC 0603 Insulin Aspart 0 AT BEDTIME 02/03 2100 AC 02/03 NE 202 Insulin Aspart 0 TIDAC 02/02 1700 AC 02/04 SC 1158 Insulin Detemir 12 UNITS DAILY 02/04 1100 AC 02/04 SC 1202 Multivitamins 1 TAB DAILY 02/03 0900 AC 02/04 PO 0733 Sevelamer Carbonate 800 MG WM 02/02 1200 AC 02/04 PO 1159 Last 24 Hrs of Lab/Dandre Results Last 24 Hrs of Labs/Mics: Laboratory Tests 02/04/18 0920: Anion Gap 11, Estimated GFR 9 L, BUN/Creatinine Ratio 6.7 L Assessment/Plan Assessment: Edgar Cain is a 57-year-old gentleman past medical history significant for non -insulin-dependent diabetes mellitus on , end-stage renal disease likely secondary to diabetic nephropathy on dialysis Monday and Fridays at [facility], Charcot foot neuropathy, chronic left foot ulcer, hypertension, secondary hyperparathyroidism secondary to kidney disease, brought in for evaluation to the ED for unwitnessed fall after complaing of left leg cramping. He sustained a head lac that was repaired in the ED, and was found to have a glucose level of 1038, non-anion gap metabolic acidosis bicarb of 21 and a chloride of 89, mild worsening kidney function with BUN of 41 creatinine of 5.9 (baseline 5.1/5.2). Had chills with some redness at his dialysis site, had blood cultures 2 drawn and given a dose of vancomycin, received another dose of vancomycin on Monday with dialysis. ICU managed for hyperosmolar hyperglycemic state which has improved, end-stage renal disease which he received dialysis for on Monday (02/02), and foot ulceration which was seen by business continuity specialist and ID. Patient downgraded to medicine service. 02/04: 100.2 febrile in past 24 hours. Endocrinology and infectious disease on board. Patient to be monitored one more day with new insulin regimen. He has never been on any insulin before. PROBLEM LIST: 1. HHS - resolved 2. ESRD on HD M,W,F 3. Catheter associated erythema 4. Left foot ulceration PLAN: * Patient stable on general medicine floor day 2 after transfer from ICU * Finger sticks this morning 287 x2 * Endocrinology: Dr. Fair has seen patient noted his repeat HbA1c is 11.5%; started Levemir 12 units daily; adjusted novolog coverage before meals and continued novolog coverage at bedtime; continue to monitor FSGs * Infectious Disease: local care cath site per protocol; no abx at this time; if fever can obtain BC x2 from HD cath and periphery DIET: Consistent Carbohydrate 1 DVT PPx: Code Status: Full Code Problem List: 1. ESRD (end stage renal disease) on dialysis 2. Hyperosmolar non-ketotic state in patient with type 2 diabetes mellitus 3. AYLEEN (acute kidney injury) Pain Ratin Pain Location: denies pain this morning Pain Goal: Remain pain free Pain Plan: as per pain pathway Tomorrow's Labs & Rationales: cbc bep
--- NOTE | 2018-02-04 10:16 | PN- Infect Dx ---
Subjective Subjective: Low grade temp Tmax 100.2F past 24 h. No ur sx. Review of Systems Comments: 12 points reviewed as noted, otherwise negative. Objective Last 24 Hrs of Vital Signs/I&O Vital Signs Date Time Temp Pulse Resp B/P B/P Pulse O2 O2 Flow FiO2 Mean Ox Delivery Rate 02/04 734 98.3 79 20 136/72 02/04 0734 98.3 79 20 136/72 02/04 0711 98.3 79 20 136/72 97 02/03 2148 99.1 02/04 2000 100.2 83 20 148/78 97 02/03 1557 98.9 76 16 140/80 98 Intake & Output 02/04 1600 02/04 0800 02/04 0000 Intake Total 0 600 Output Total Balance 0 600 Intake, IV 0 Intake, Oral 0 600 Number 0 Bowel Movements Patient 198 lb Weight Physical Exam Other Physical Findings: General Appearance Cooperative, No Acute Distress Skin 2X3 CM chronic ulcer on plantar aspect of foot, no increased warmth, or discharge, Jerome-cath in right upper chest, no local erythema Skin Temp/Moisture Exam: Warm/Dry HEENT Atraumatic, sclera anicteric Neck Supple Cardiovascular Regular Rate, Normal S1, Normal S2, No Murmurs Lungs Clear to Auscultation, Normal Air Movement Abdomen Normal Bowel Sounds, No Tenderness Extremities No Edema, Normal Pulses Neuro: Alert, Oriented X3, non focal Results Last 24 Hours of Lab Results: Laboratory Tests 02/05 920 Chemistry Sodium Pending Potassium Pending Chloride Pending Carbon Dioxide Pending Anion Gap Pending BUN Pending Creatinine Pending BUN/Creatinine Ratio Pending Last 24 Hours of Dandre Results: Patient : SHANI BERNAL Acct: [id number] DR: Keshav MARQUES,Kaela Hudson Birthdate: [birth year] Age/Sex: 57/M Unit: [id number] Loc: 2NA 229- [id number] Status : ADM IN SPEC #: [id number] IRVIN: 02/02/180 STATUS: COMP RECD: 02/02/181244 SUBM DR: Keshav MARQUES,Kaela Hudson SOURCE: UPPER RESP ENTR: 02/02/18-[address]: Jony MARQUES,Ej Cantu SPDESC: JENNIFER Oseguera MD,[facility] ORDERED: ACT SURV NARES Procedure Result > ACTIVE SURVEILLANCE CULTURE Final 02/03/18-1353 NO METHICILLIN RESISTANT STAPH AUREUS ISOLATED Recent Imaging Studies: EXAMINATION: CT HEAD WITHOUT CONTRAST CLINICAL INFORMATION: Head injury. COMPARISON: None TECHNIQUE: Contiguous axial imaging was performed from the skull base to vertex without intravenous administration of contrast. DLP: 707 mGy-cm FINDINGS: There is no evidence of acute intracranial hemorrhage, midline shift, mass effect, or extra-axial fluid collection. No evidence of hydrocephalus. Basal cisterns are patent. The calvarium is intact. The visualized paranasal sinuses and mastoid air cells are essentially clear. Atherosclerotic calcifications are seen along the intradural vertebral arteries and carotid siphons as well as along external carotid artery branches IMPRESSION: No acute intracranial hemorrhage or mass effect. Diffuse atherosclerotic calcifications, in keeping with known history of end-stage renal disease. DICTATED BY: Misael Buck MD DATE/TIME DICTATED:02/02/18821 WOOD GRAINER:TC DATE/TIME TRANSCRIBED:02/02/18821 CONFIDENTIAL, DO NOT COPY WITHOUT APPROPRIATE AUTHORIZATION. <Electronically signed in Other Vendor System> SIGNED BY: Misael Buck MD 02/02/18 0832 Assessment/Plan ID Impression: 57-year-old gentleman past medical history significant for [id number] diabetes mellitus on , end-stage renal disease likely secondary to diabetic nephropathy on dialysis Monday and Fridays, Charcot foot neuropathy, chronic left foot ulcer, hypertension, secondary hyperparathyroidism secondary to kidney disease admitted 02/02/18. Eval infection HD cath Low grade temp; resolved Suggestion: 1. Continue to observe off abx; local care cath site per protocol; if developing local drainage/redness please call. 2. If fever obtain BC x2 from the HD cath and periphery.
--- NOTE | 2018-02-04 12:05 | PN- Diabetes ---
Assessment/Plan Diabetes Assessment: 57 y/o male hx of diabetes type which was diagnosed in 1987. He has diabetic kidney disease and renal failure. He was admitted for Hyperosmolar hyperglycemic state in the setting of renal failure. He was on an insulin drip on 02/02/2018 which was discontinued after his glucose level was less than 250. Now he is on consistent carbohydrates 1 diet, Novolog coverage before meals and Novolog coverage at bedtime. His FSGs were 234, 356, 368, 312 and 287. His repeat HbA1c was 11.5%. Clinically he has been feeling better. Blood work showed calcium 7.9, albumin 3.1, 25 OH vitamin D 18.6 and PTH 398.2. Patient was started on vitamin D 2000 units daily. Plan: 1. start Levemir 12 units daily; 2. adjust Novolov coverage before meals; detail see the inpatient DM order; 3. continue the current Novolog coverage at bedtime; 4. monitor FSGs. will follow. Inpatient Diabetes Orders Before Each Meal: Bolus Insulin: Novolog < 80 mg/dl: no coverage 80-100 mg/dl: 4 units 101-120 mg/dl: 4 units 121-150 mg/dl: 4 units 151-200 mg/dl: 5 units 201-250 mg/dl: 6 units 251-300 mg/dl: 7 units 301-350 mg/dl: 8 units 351-400 mg/dl: 9 units > 400 mg/dl: 10 units Subjective Subjective: He feels better. Objective Last 24 Hrs of Vital Signs/I&O Vital Signs Date Time Temp Pulse Resp B/P B/P Pulse O2 O2 Flow FiO2 Mean Ox Delivery Rate 02/04 734 98.3 79 20 136/72 02/04 0734 98.3 79 20 136/72 02/04 0711 98.3 79 20 136/72 97 02/03 2148 99.1 02/04 2000 100.2 83 20 148/78 97 02/03 1557 98.9 76 16 140/80 98 Intake & Output 02/04 1600 02/04 0800 02/04 0000 Intake Total 0 600 Output Total Balance 0 600 Intake, IV 0 Intake, Oral 0 600 Number 0 Bowel Movements Patient 198 lb Weight Findings Pertinent Lab/Dandre Results: Laboratory Tests 02/05 920 Chemistry Sodium (137 - 145 mmol/L) 134 L Potassium (3.5 - 5.1 mmol/L) 4.2 Chloride (98 - 107 mmol/L) 100 Carbon Dioxide (22 - 30 mmol/L) 22 Anion Gap (5 - 16) 11 BUN (9 - 20 mg/dL) 43 H Creatinine (0.7 - 1.2 mg/dL) 6.4 *H Estimated GFR (>60 ml/min) 9 L BUN/Creatinine Ratio (7 - 25 %) 6.7 L
[2018-02-04 14:12] VITALS: BP 130/60
[2018-02-04 22:11] VITALS: BP 128/80
[2018-02-05 06:54] VITALS: BP 126/82
[2018-02-05 07:48] LABS: ABSOLUTE BASOPHIL COUNT 0 /CUMM (0.0-0.2); ABSOLUTE EOSINOPHIL COUNT 0.1 /CUMM (0.0-0.7); ABSOLUTE GRANULOCYTE CT 6.3 /CUMM (1.4-6.5); ABSOLUTE LYMPH COUNT 1.8 /CUMM (1.2-3.4); ABSOLUTE MONOCYTE COUNT 0.6 /CUMM (0.10-0.60); BASOPHIL % 0.4 % (0.0-2.0); EOSINOPHIL % 1.5 % (0-5); GRANULOCYTE % 71.3 % (42.2-75.2); HEMATOCRIT 31.9 % (42-52); MEAN CORPUSCULAR HGB 25.5 PG (27.0-31.0); MEAN CORPUSCULAR HGB CONC 31.4 G/DL (33.0-37.0); MEAN CORPUSCULAR VOLUME 81.3 FL (80.0-94.0); MEAN PLATELET VOLUME 8.8 FL (7.4-10.4); PLATELET COUNT 368 /CUMM (130-400); RBC DISTRIBUTION WIDTH 15.7 % (11.5-14.5); RED BLOOD CELL CT 3.92 /CUMM (4.70-6.10); WHITE BLOOD CELL COUNT 8.8 /CUMM (4.8-10.8)
--- NOTE | 2018-02-05 10:05 | PN- Housestaff ---
Bradley CheungMigue 02/05/18 1004: Subjective Follow-up For: Hyperosmolar Hyperglycemic State ESRD on HD Subjective: Pt seen and examined this am. Breathing comfortably on room air, sitting in the chair. Offered no acute complains, states feeling well rested. Patient on // schedule. Afebrile since 06/13. Vitals signs stable. Dr. Fair to see the patient today about discharge insulin medication. Review of Systems Constitutional: Reports: see HPI. Objective Last 24 Hrs of Vital Signs/I&O Vital Signs Date Time Temp Pulse Resp B/P B/P Pulse O2 O2 Flow FiO2 Mean Ox Delivery Rate 02/05 08 98.0 66 20 126/82 02/05 0817 98.0 66 20 126/82 / 0654 98.0 66 20 126/82 98 Room Air 02/04 2211 98.6 66 20 128/80 98 02/04 1412 98.3 66 20 130/60 98 Room Air Intake & Output 02/05 1600 02/05 0800 02/05 0000 Intake Total 360 360 Output Total Balance 360 360 Intake, Oral 360 360 Patient 199 lb 199 lb Weight Physical Exam General Appearance: Alert, Oriented X3, Cooperative, No Acute Distress Skin: No Rashes HEENT: Atraumatic Neck: Supple Cardiovascular: Regular Rate, Normal S1, Normal S2, No Murmurs Lungs: Clear to Auscultation, Normal Air Movement Abdomen: Normal Bowel Sounds, Soft, No Tenderness Neurological: Normal Speech Current Medications: Current Medications Sig/Bipin Start time Last Medication Dose Route Stop Time Status Admin Acetaminophen 650 MG Q6-PRN PRN 02/02 2345 AC PO Amlodipine Besylate 10 MG DAILY 02/03 900 AC 02/05 PO 0817 Atenolol 50 MG DAILY 02/03 09 AC 02/05 PO 0817 Cholecalciferol 2,000 IU DAILY 02/03 900 AC 02/05 PO 0817 Epoetin Gómez 10,000 UNIT MoWeFr 02/02 1214 AC 02/02 IV 1230 Heparin Sodium 5,000 UNIT Q8 02/02 1400 AC 02/05 (Porcine) SC 0609 Insulin Aspart 0 AT BEDTIME 02/03 2100 AC 02/03 SC 202 Insulin Aspart 0 TIDAC 02/02 1700 AC 02/05 SC 08 Insulin Detemir 12 UNITS DAILY 02/04 1100 AC 02/05 SC 0818 Multivitamins 1 TAB DAILY 02/03 0900 AC 02/05 PO 0817 Sevelamer Carbonate 800 MG WM 02/02 1200 AC 02/05 PO 0817 Last 24 Hrs of Lab/Dandre Results Last 24 Hrs of Labs/Mics: Laboratory Tests 02/05/18 0630: Anion Gap 14, Estimated GFR 8 L, BUN/Creatinine Ratio 7.2, CBC w Diff NO MAN DIFF REQ, RBC 3.92 L, MCV 81.3, MCH 25.5 L, MCHC 31.4 L, RDW 15.7 H, MPV 8.8 , Gran % 71.3, Lymphocytes % 20.4 L, Monocytes % 6.4, Eosinophils % 1.5, Basophils % 0.4, Absolute Granulocytes 6.3, Absolute Lymphocytes 1.8, Absolute Monocytes 0.6, Absolute Eosinophils 0.1, Absolute Basophils 0 Assessment/Plan Assessment: Mr. Cain is a 57 y/o M with PMH significant for [id number] diabetes mellitus on , ESRD likely 2/2 to diabetic nephropathy on dialysis T//S at [facility], Charcot foot neuropathy, chronic left foot ulcer, hypertension, secondary hyperparathyroidism secondary to kidney disease, brought in for evaluation to the ED for unwitnessed fall after complaing of left leg cramping. He sustained a head lac that was repaired in the ED, and was found to have a glucose level of 1038, non-anion gap metabolic acidosis bicarb of 21 and a chloride of 89, mild worsening kidney function with BUN of 41 creatinine of 5.9 (baseline 5.1/5.2). Had chills with some redness at his dialysis site, had blood cultures 2 drawn and given a dose of vancomycin, received another dose of vancomycin on Monday with dialysis. ICU managed for hyperosmolar hyperglycemic state which has improved, end-stage renal disease which he received dialysis for on Monday (02/02), and foot ulceration which was seen by grocery specialist and ID. Patient downgraded to medicine service for continued management. #PROBLEM LIST: #HHS - resolved #ESRD on HD M,W,F #Catheter associated erythema #Left foot ulceration PLAN * Patient continues stable on GEN MED with no acute complains after transfer from the ICU. * Bedside glucose monitorinx3 * Endocrinology following - Dr. Fair. Pt has agreed to go on Novolog 70/30 mix on discharge. Pt knows how to administer insulin. Will provide glucometer, strips, lancets and syringes on discharge. He is currently on Levemir 12 units daily; adjusted novolog coverage before meals and continued novolog coverage at bedtime. * ID following - Dr. Porras. Being observed off antibiotics with local cath site as per protocol. Should fever return, obtain BC x2 from HD cath and peripheral access. FULL CODE DVT PPX: Hep subQ Diet: Consistent Carb 1 Problem List: 1. ESRD (end stage renal disease) on dialysis 2. Diabetes mellitus type 2 with complications Pain Ratin Pain Location: n/a Pain Goal: Remain pain free Pain Plan: As per pathway Tomorrow's Labs & Rationales: . Berry Gongora MD 02/05/18 1318: Attending MD Review Statement Attending Statement Attending MD Statement: examined this patient, discuss w/resident/PA/WALLBOARD WORKER, agreed w/resident/PA/WALLBOARD WORKER, reviewed EMR data (avail), amended to note Attending Assessment/Plan: The patient was seen and discussed with house staff. Endocrinology follow-up appreciated. Unclear if he is to get dialysis today (nursing checking). Insulin as per Dr. Fair. Will need a glucose meter for home use. The patient has administered insulin previously.
--- NOTE | 2018-02-05 12:51 | PN- Diabetes ---
Assessment/Plan Diabetes Assessment: Assessment: 57 y/o male hx of diabetes type which was diagnosed in 1987. He has diabetic kidney disease and renal failure. He was admitted for Hyperosmolar hyperglycemic state in the setting of renal failure. He was on an insulin drip on 02/02/2018 which was discontinued after his glucose level was less than 250. Now he is on consistent carbohydrates 1 diet, Levemir 12 uits daily, Novolog coverage before meals and Novolog coverage at bedtime. His FSGs were 322, 226 and 161. Over the past 24 hours, he has received total of 36 units of insulin. His repeat HbA1c was 11.5%. Clinically he has been feeling better. He is going home today. In addition, blood work showed calcium 7.9, albumin 3.1, 25 OH vitamin D 18.6 and PTH 398.2. Patient was started on vitamin D 2000 units daily. Plan: 1. continue he current insulin regimen for now when he is in the hospital; 2. with regards to the discharge plan for diabetes, he is willing to take insulin, however he prefers insulin injection twice a day. --- stip Januvia; ---Novolog 70/30 mix or Humalog 75/25 mix 12 units before breakfast and 15 units before dinner; ---monitor FSGs x 4 times a day; ---f/u in office after discharge; ---please give patient Rxs for insulin, syringes, glucometer, test strips and lancets. call if there are any questions. Subjective Subjective: He feels much better. Objective Last 24 Hrs of Vital Signs/I&O Vital Signs Date Time Temp Pulse Resp B/P B/P Pulse O2 O2 Flow FiO2 Mean Ox Delivery Rate 02/05 817 98.0 66 20 126/82 02/05 0817 98.0 66 20 126/82 02/05 0654 98.0 66 20 126/82 98 Room Air 02/04 2211 98.6 66 20 128/80 98 02/04 1412 98.3 66 20 130/60 98 Room Air Intake & Output 02/05 1600 02/05 0800 02/05 0000 Intake Total 360 360 Output Total Balance 360 360 Intake, Oral 360 360 Patient 199 lb 199 lb Weight Findings Pertinent Lab/Dandre Results: Laboratory Tests 02/05 06 Chemistry Sodium (137 - 145 mmol/L) 136 L Potassium (3.5 - 5.1 mmol/L) 4.6 Chloride (98 - 107 mmol/L) 101 Carbon Dioxide (22 - 30 mmol/L) 21 L Anion Gap (5 - 16) 14 BUN (9 - 20 mg/dL) 52 H Creatinine (0.7 - 1.2 mg/dL) 7.2 *H Estimated GFR (>60 ml/min) 8 L BUN/Creatinine Ratio (7 - 25 %) 7.2 Hematology CBC w Diff NO MAN DIFF REQ WBC (4.8 - 10.8 /CUMM) 8.8 RBC (4.70 - 6.10 /CUMM) 3.92 L Hgb (14.0 - 18.0 G/DL) 10.0 L Hct (42 - 52 %) 31.9 L MCV (80.0 - 94.0 FL) 81.3 MCH (27.0 - 31.0 PG) 25.5 L MCHC (33.0 - 37.0 G/DL) 31.4 L RDW (11.5 - 14.5 %) 15.7 H Plt Count (130 - 400 /CUMM) 368 MPV (7.4 - 10.4 FL) 8.8 Gran % (42.2 - 75.2 %) 71.3 Lymphocytes % (20.5 - 51.1 %) 20.4 L Monocytes % (1.7 - 9.3 %) 6.4 Eosinophils % (0 - 5 %) 1.5 Basophils % (0.0 - 2.0 %) 0.4 Absolute Granulocytes (1.4 - 6.5 /CUMM) 6.3 Absolute Lymphocytes (1.2 - 3.4 /CUMM) 1.8 Absolute Monocytes (0.10 - 0.60 /CUMM) 0.6 Absolute Eosinophils (0.0 - 0.7 /CUMM) 0.1 Absolute Basophils (0.0 - 0.2 /CUMM) 0
--- NOTE | 2018-02-05 13:16 | PN- Nephrology ---
Assessment/Plan Nephrology Assessment: 1. End-stage renal disease on hemodialysis. 2. Diabetes mellitus. 3. Sluggish catheter. Will use open cath Suggestion: 1. Open cath to dwell for 30 minutes. We will do both ports. Subjective Subjective: Patient seen with hemodialysis in progress. Unfortunately his catheter is not working well. Objective Vital Signs and I&Os Vital Signs Date Time Temp Pulse Resp B/P B/P Pulse O2 O2 Flow FiO2 Mean Ox Delivery Rate 02/05 817 98.0 66 20 126/82 02/05 0817 98.0 66 20 126/82 02/05 0654 98.0 66 20 126/82 98 Room Air 02/04 2211 98.6 66 20 128/80 98 02/04 1412 98.3 66 20 130/60 98 Room Air Intake & Output 02/05 1600 02/05 0400 02/04 1600 02/04 0400 02/03 1600 02/03 0400 Intake Total 360 360 800 600 745 Output Total 250 5400 Balance 360 360 800 600 -250 -4655 Intake, IV 0 25 Intake, Oral 360 360 800 600 720 Number 0 0 Bowel Movements Output, 5000 Dialysate Output, Urine 250 400 Patient 199 lb 198 lb 197 lb 196 lb Weight Weight Bed scale Bed scale Measurement Method Physical Exam General Appearance: well developed/nourished, no apparent distress, alert, awake Head: atraumatic, normal appearance Ears, Nose, Throat: hearing grossly normal Neck: normal inspection, supple Respiratory: normal breath sounds, chest non-tender, lungs clear Cardiovascular: regular rate/rhythm, edema, gallop Abdomen: normal bowel sounds, soft, non-tender Back: normal inspection Extremities: normal inspection, normal capillary refill Neurologic/Psychiatric: no motor/sensory deficits, awake, alert, oriented x 3 Skin: intact Current Medications: Current Medications Sig/Bipin Start time Last Medication Dose Route Stop Time Status Admin Acetaminophen 650 MG Q6-PRN PRN 02/02 2345 AC PO Amlodipine Besylate 10 MG DAILY 02/03 900 AC 02/05 PO 816 Atenolol 50 MG DAILY 02/03 900 AC 02/05 PO 816 Cholecalciferol 2,000 IU DAILY 02/03 900 AC 02/05 PO 816 Epoetin Gómez 10,000 UNIT MoWeFr 02/02 1214 AC 02/02 IV 1230 Heparin Sodium 5,000 UNIT Q8 02/02 1400 AC 02/05 (Porcine) PA 0609 Insulin Aspart 0 AT BEDTIME 02/03 2100 AC 02/03 PA 202 Insulin Aspart 0 TIDAC 02/02 1700 AC 02/05 SC 1212 Insulin Detemir 12 UNITS DAILY 02/04 1100 AC 02/05 SC 0818 Multivitamins 1 TAB DAILY 02/03 0900 AC 02/05 PO 0817 Sevelamer Carbonate 800 MG WM 02/02 1200 AC 02/05 PO 1155 Results Pertinent Lab Results: Laboratory Tests 02/05 02/04 02/03 02/02 0630 0920 0415 1510 Chemistry Sodium (137 - 145 mmol/L) 136 L 134 L 137 Potassium (3.5 - 5.1 mmol/L) 4.6 4.2 3.6 Chloride (98 - 107 mmol/L) 101 100 104 Carbon Dioxide (22 - 30 mmol/L) 21 L 22 23 Anion Gap (5 - 16) 14 11 11 BUN (9 - 20 mg/dL) 52 H 43 H 26 H Creatinine (0.7 - 1.2 mg/dL) 7.2 *H 6.4 *H 4.7 H Estimated GFR (>60 ml/min) 8 L 9 L 13 L BUN/Creatinine Ratio (7 - 25 %) 7.2 6.7 L Glucose (65 - 99 mg/dL) 187 H 305 H Calcium (8.4 - 10.2 mg/dL) 8.3 L Phosphorus (2.5 - 4.5 mg/dL) 4.0 Magnesium (1.6 - 2.3 mg/dL) 1.8 Total Bilirubin (0.2 - 1.3 mg/dL) 0.4 AST (17 - 59 U/L) 9 L ALT (21 - 72 U/L) 21 Albumin (3.5 - 5.0 g/dL) 3.0 L Hematology CBC w Diff NO MAN DIFF REQ WBC (4.8 - 10.8 /CUMM) 8.8 RBC (4.70 - 6.10 /CUMM) 3.92 L Hgb (14.0 - 18.0 G/DL) 10.0 L Hct (42 - 52 %) 31.9 L MCV (80.0 - 94.0 FL) 81.3 MCH (27.0 - 31.0 PG) 25.5 L MCHC (33.0 - 37.0 G/DL) 31.4 L RDW (11.5 - 14.5 %) 15.7 H Plt Count (130 - 400 /CUMM) 368 MPV (7.4 - 10.4 FL) 8.8 Gran % (42.2 - 75.2 %) 71.3 Lymphocytes % (20.5 - 51.1 %) 20.4 L Monocytes % (1.7 - 9.3 %) 6.4 Eosinophils % (0 - 5 %) 1.5 Basophils % (0.0 - 2.0 %) 0.4 Absolute Granulocytes (1.4 - 6.5 /CUMM) 6.3 Absolute Lymphocytes (1.2 - 3.4 /CUMM) 1.8 Absolute Monocytes (0.10 - 0.60 /CUMM) 0.6 Absolute Eosinophils (0.0 - 0.7 /CUMM) 0.1 Absolute Basophils (0.0 - 0.2 /CUMM) 0 08 1500 Chemistry Glucose Cancelled
[2018-02-05 18:30] VITALS: BP 140/80
[2018-02-05 19:55] VITALS: BP 142/80
[2018-02-06 06:40] VITALS: BP 136/74
--- NOTE | 2018-02-06 06:56 | PN- Housestaff ---
Luciano Woods 02/06/18 0656: Subjective Follow-up For: HHS - resolved transfered from ICU ESRD on HD MWF Subjective: Pt seen and examined at bedside. Patient has had hemodyalisis yesterday. Dr. Fair of endocrinology has notified patient of discharge on home insulin. Patient claims he is aware of drawing up insulin as he has previous experience. Denies any acute complaints this morning. Will be discharged today. Review of Systems Constitutional: Denies: see HPI. Objective Last 24 Hrs of Vital Signs/I&O Vital Signs Date Time Temp Pulse Resp B/P B/P Pulse O2 O2 Flow FiO2 Mean Ox Delivery Rate 02/06 913 62 136/74 02/06 0912 62 136/74 02/06 0640 98.3 62 20 136/74 98 02/05 1955 99.4 72 16 142/80 97 02/05 1830 98.5 68 20 140/80 98 Room Air Intake & Output 02/06 1600 02/06 0800 02/06 0000 Intake Total 200 Output Total Balance 200 Intake, Oral 200 Physical Exam General Appearance: Alert, Oriented X3, Cooperative Skin: No Rashes, No Breakdown Cardiovascular: Regular Rate, Normal S1, Normal S2, No Murmurs Lungs: Clear to Auscultation, Normal Air Movement Abdomen: Normal Bowel Sounds, Soft, No Tenderness Vascular: Normal Pulses, Pulses Symmetrical Current Medications: Current Medications Sig/Bipin Start time Last Medication Dose Route Stop Time Status Admin Acetaminophen 650 MG Q6-PRN PRN 02/02 2345 DCD PO Amlodipine Besylate 10 MG DAILY 02/03 900 DCD 02/06 PO 912 Atenolol 50 MG DAILY 02/03 900 DCD 02/06 PO 09 Cholecalciferol 2,000 IU DAILY 02/03 900 DCD 02/06 PO 09 Epoetin Gómez 10,000 UNIT MoWeFr 02/02 1214 DCD 02/02 IV 1230 Heparin Sodium 5,000 UNIT Q8 02/02 1400 DCD 02/06 (Porcine) SC 0603 Insulin Aspart 0 AT BEDTIME 02/03 2100 DCD 02/03 SC 202 Insulin Aspart 0 TIDAC 02/02 1700 DCD 02/06 SC 1251 Insulin Detemir 12 UNITS DAILY 02/04 1100 DCD 02/06 SC 09 Multivitamins 1 TAB DAILY 02/03 0900 DCD 02/06 PO 0913 Sevelamer Carbonate 800 MG WM 02/02 1200 DCD 02/06 PO 0900 Assessment/Plan Assessment: Mr. Cain is a 57 y/o M with PMH significant for [id number] diabetes mellitus on Januvia, ESRD likely 2/2 to diabetic nephropathy on dialysis T//S at [facility], Charcot foot neuropathy, chronic left foot ulcer, hypertension, secondary hyperparathyroidism secondary to kidney disease, brought in for evaluation to the ED for unwitnessed fall after complaing of left leg cramping. He sustained a head lac that was repaired in the ED, and was found to have a glucose level of 1038, non-anion gap metabolic acidosis bicarb of 21 and a chloride of 89, mild worsening kidney function with BUN of 41 creatinine of 5.9 (baseline 5.1/5.2). Had chills with some redness at his dialysis site, had blood cultures 2 drawn and given a dose of vancomycin, received another dose of vancomycin on Monday with dialysis. ICU managed for hyperosmolar hyperglycemic state which has improved, end-stage renal disease which he received dialysis for on Monday (02/02), and foot ulceration which was seen by digital advertising specialist and ID. Patient downgraded to medicine service for continued management. #PROBLEM LIST: #HHS - resolved #ESRD on HD M,W,F #Catheter associated erythema #Left foot ulceration PLAN * Patient continues stable on GEN MED with no acute complains after transfer from the ICU will be discharged today with glucometer, test strips, lancets, syringes and Insulin Novolog 70/30 vial as per Endocrinology * Endocrinology following - Dr. Fair. Pt has agreed to go on Novolog 70/30 mix on discharge. Pt knows how to administer insulin. Will provide glucometer, strips, lancets and syringes on discharge. He is currently on Levemir 12 units daily; adjusted novolog coverage before meals and continued novolog coverage at bedtime. * ID following - Dr. Porras. Being observed off antibiotics with local cath site as per protocol. Should fever return, obtain BC x2 from HD cath and peripheral access. FULL CODE DVT PPX: Hep subQ Diet: Consistent Carb 1 Problem List: 1. ESRD (end stage renal disease) on dialysis 2. Hyperosmolar non-ketotic state in patient with type 2 diabetes mellitus Pain Ratin Pain Location: no pain today Pain Goal: Remain pain free Pain Plan: as per pain pathway Tomorrow's Labs & Rationales: discharge Berry Gongora MD 02/06/18 2222: Attending MD Review Statement Attending Statement Attending MD Statement: examined this patient, discuss w/resident/PA/CLOTH MERC[employer]ER BACK TENDER, agreed w/resident/PA/CLOTH [employer]ER BACK TENDER, reviewed EMR data (avail), discussed with nursing, discussed with case mgmt, amended to note Attending Assessment/Plan: The patient was seen and discussed with house staff, nursing, and case management. OK to discharge to home today. Endocrinology follow-up appreciated and patient will be on insulin. He is familiar with insulin and has administered it to himself in the past. New glucose meter obtained from pharmacy and given to patient. Follow-up with Nephrology and Endocrinology as well as PCP.
--- NOTE | 2018-02-06 09:06 | Discharge Summary ---
Visit Information Visit Dates Admission Date: 02/02/18 Discharge Date: 02/06/18 Hospital Course Course Attending Physician: Berry Gongora MD Primary Care Physician: Ej Borges MD Hospital Course: HOSPITAL COURSE: 57-year-old gentleman past medical history significant for [id number] diabetes mellitus on Januvia, end-stage renal disease,Charcot foot neuropathy, chronic left foot ulcer, hypertension, secondary hyperparathyroidism. Found to have have hyperglycemia glucose level of 1038, non-anion gap metabolic acidosis bicarb of 21 and a chloride of 89, mild worsening kidney function with BUN of 41 creatinine of 5.9 (baseline 5.1/5.2). EMERGENCY DEPARTMENT: Vitals: 97.4 101 20 183/90 94Room Air Patient started on insulin drip in the ED with 9 units of Novolin bolus. EKG Results Normal sinus rhythm, rate 87, QTC 477, mild peaking of T waves in V4 and V5 as compared to previous EKG no other acute changes noted Other Results CT HEAD WO IV CONTRAST IMPRESSION: No acute intracranial hemorrhage or mass effect. Diffuse atherosclerotic calcifications, in keeping with known history of end-stage renal disease. ICU ADMISSION: PROBLEM LIST: 1. Hyperosmolar hyperglycemic state in the setting of end-stage renal disease. 2. Status post Jerome cath placement with possible localized infection, ID consulted. 3. Anemia without evidence of bleeding. 4. History of hypertension. 5. History of Charcot neuroarthropathy. ICU COURSE: Patient admittted for HHS in the setting of ESRD. Patient was continued and monitored on insulin dip with FSG monitored, gentle IV hydration ensuring to adjust for a decrease in glucose levels by 50-100 mg/dl/hr with a goal of less than 250. Endocrinology Dr. Cox on board with patients care. Patient seen by nephrology Dr. Mendoza with normal schedule of hemodyalisis accordingly MW. Patient was seen by ID after receiving 2 doses of Vancomycin at [facility] for redness at his dialysis site where blood cultures were negative for any growth. In addition he had a chronic non-healing ulceration of the left dorsum protion of foot without signs or symptoms of infection. Patients EPO was continued along with vitamin D supplementation. Stable prior to transfer to General Medicine. GENERAL MEDICINE TRANSFER: 1. HHS - resolved 2. ESRD on HD M,W,F 3. Catheter associated erythema 4. Left foot ulceration Patient was continued to be seen by endocrinology during his stay in general medicine floor. Finger sticks were done each morning. Dr. Cox followed patient and started Levemir 12 units daily and adjsted patients novolog coverage before meals and at bedtime acocrdingly. He was continued on a consistent carbohydrate 1 diet. Continued to be afebrile during his stay. Dr. cox noted patients repeat HbA1c of 11.5%. Code Status: Full Code Diet: CC1 DVT PPx: Heparin SC Allergies: Coded Allergies: NO KNOWN ALLERGIES (NONE 06/27/17) Disposition Summary Disposition Principal Diagnosis: HHS Additional Diagnosis: ESRD on HD Discharge Disposition: home or self care Discharge Instructions General Discharge Information Code Status: Full Code Patient's Diet: Consistent Carbohydrate 1 Patient's Activity: As tolerated Follow-Up Instructions/Appts: Please follow up with PCP within 1-2 weeks of discharge. Follow up with Endocrinology Dr. Cox within 1 week of discharge. Continue Insulin Novolog 70/30 mix vial 12 units before breakfast and 15 units before dinner Medications at Discharge Discharge Medications: Stop taking the following medications: Sitagliptin Phosphate (Januvia) 25 MG TABLET ORAL DAILY Qty = 30 Continue taking these medications: Sevelamer Carbonate (Renvela) 800 MG TABLET 800 Milligram ORAL WITH MEALS Qty = 30 Instructions: . Comments: Last Taken: 02/06/18 Time: 0900 AM Furosemide (Lasix) 40 MG TABLET 80 Milligram ORAL DAILY Qty = 30 Instructions: . Comments: DID NOT TAKE IN THE HOSPITAL Nephro-Vitamins (Nephro-Arabella Tablet) 0.8 MG TABLET 1 Tablet ORAL DAILY Qty = 30 Instructions: . Comments: Last Taken: 02/06/18 Time: 0900 AM Cholecalciferol (Vitamin D3) 1,000 UNIT TABLET 2,000 International Unit ORAL DAILY Qty = 30 Instructions: . Comments: Last Taken: 02/06/18 Time: 0900 AM Amlodipine Besylate (Amlodipine Besylate) 10 MG TABLET 1 Tablet ORAL DAILY Comments: Last Taken:02/06/18 Time:0900 AM Atenolol (Atenolol) 50 MG TABLET 1 Tablet ORAL DAILY Comments: Last Taken:02/06/18 Time:0900 AM Start taking the following new medications: Insulin Aspart Protam & Aspart (Novolog Mix 70-30 Vial) 100 UNIT/ML (70-30) VIAL 0 INTRAMUSC SEE INSTRUCTIONS Qty = 5 Refills = 3 Instructions: 12 Units before breakfast 15 units before dinner Comments: DID NOT START Copies To: Jony MARQUES,Ej Cantu Attending MD Review Statement Documenting Attending: Berry Gongora MD Other Findings: Agree with the above summary of care and plan upon discharge.
[2018-02-06 09:13] VITALS: BP 136/74
--- NOTE | 2018-02-06 12:46 | PN- Diabetes ---
Assessment/Plan Diabetes Assessment: 57 y/o male hx of diabetes type which was diagnosed in 1987. He has diabetic kidney disease and renal failure. He was admitted for Hyperosmolar hyperglycemic state in the setting of renal failure. He was on an insulin drip on 02/02/2018 which was discontinued after his glucose level was less than 250. Now he is on consistent carbohydrates 1 diet, Levemir 12 uits daily, Novolog coverage before meals and Novolog coverage at bedtime. His FSGs were 161, 305, 148 and 256. His repeat HbA1c was 11.5%. Clinically he has been feeling better. He probably will go home today. In addition, blood work showed calcium 7.9, albumin 3.1, 25 OH vitamin D 18.6 and PTH 398.2. Patient was started on vitamin D 2000 units daily. Plan: 1. continue he current insulin regimen for now when he is in the hospital; 2. with regards to the discharge plan for diabetes, he is willing to take insulin, however he prefers insulin injection twice a day. --- stip Januvia; ---Novolog 70/30 mix or Humalog 75/25 mix 12 units before breakfast and 15 units before dinner; ---monitor FSGs x 4 times a day; ---f/u in office after discharge; ---please give patient Rxs for insulin, syringes, glucometer, test strips and lancets. call if there are any questions. Subjective Subjective: He probably will go home today. Objective Last 24 Hrs of Vital Signs/I&O Vital Signs Date Time Temp Pulse Resp B/P B/P Pulse O2 O2 Flow FiO2 Mean Ox Delivery Rate 02/06 913 62 136/74 02/07 912 62 136/74 02/06 06 98.3 62 20 136/74 98 02/05 1955 99.4 72 16 142/80 97 02/05 1830 98.5 68 20 140/80 98 Room Air Intake & Output 02/06 1600 02/06 0800 02/06 0000 Intake Total 200 Output Total Balance 200 Intake, Oral 200 Findings Pertinent Lab/Dandre Results: Laboratory Tests 02/07 640 Chemistry Sodium (137 - 145 mmol/L) 136 L Potassium (3.5 - 5.1 mmol/L) 4.6 Chloride (98 - 107 mmol/L) 103 Carbon Dioxide (22 - 30 mmol/L) 22 Anion Gap (5 - 16) 10 BUN (9 - 20 mg/dL) 49 H Creatinine (0.7 - 1.2 mg/dL) 6.4 *H Estimated GFR (>60 ml/min) 9 L BUN/Creatinine Ratio (7 - 25 %) 7.9
--- NOTE | 2018-02-06 13:23 | Patient Discharge Instructions ---
Discharge Instructions General Discharge Information You were seen/treated for: HHS ESRD on HD Diabetes Special Instructions: Please follow up with your PCP within 1-2 weeks of discharge. Please continue Insulin regimen as prescribed: Novolog 70/30 mix vial 12 units before breakfast and 15 units before dinner. Follow up with Dr. Fair - Endocrinology within 1 week of discharge. Follow up with your weight clerk within 1-2 weeks of discharge. Diet Continue normal diet: No Recommended Diet: CC1 Acute Coronary Syndrome Inclusion Criteria At DC or during hospital stay patient has or had the following: ACS DIAGNOSIS No Discharge Core Measures Meds if any: Prescribed or Continued at Discharge Meds if any: NOT Prescribed or Continued at Discharge Congestive Heart Failure Inclusion Criteria At DC or during hospital stay patient has or had the following: CHF DIAGNOSIS No Discharge Core Measures Meds if any: Prescribed or Continued at Discharge Meds if any: NOT Prescribed or Continued at Discharge Cerebrovascular accident Inclusion Criteria At DC or during hospital stay patient has or had the following: CVA/TIA Diagnosis No Discharge Core Measures Meds if any: Prescribed or Continued at Discharge Meds if any: NOT Prescribed or Continued at Discharge Venous thromboembolism Inclusion Criteria VTE Diagnosis No VTE Type NONE VTE Confirmed by (Test) NONE Discharge Core Measures - Per Current guidelines, there needs to be overlap - treatment for the first 5 days of Warfarin therapy. - If discharged on Warfarin prior to 5 days of - overlap therapy, the patient will need to be - assessed for post discharge needs including - *Post discharge parental anticoagulation - *Warfarin and/or parental anticoagulation education - *Follow up date to check INR post discharge At least 5 days overlap therapy as Inpatient No Meds if any: Prescribed or Continued at Discharge Note: Overlap Therapy is Warfarin and Anticoagulant Meds if any: NOT Prescribed or Continued at Discharge
[2018-02-06] MEDS ORDERED: NOVOLOG MI100 UNIT/1 IM ×2 (13:31→14:10)
--- NOTE | 2018-02-06 16:08 | PN- Nephrology ---
Assessment/Plan Nephrology Assessment: 1. ESRD 2. Hyperglycemic, hyperosmolar state -resolved 3. Hypovitaminosis D Suggestion: 1. Hemodialysis tomorrow to be done here if he is still an inpatient 2. Blood sugar management per Endocrinology Subjective Subjective: Offers no complaints today other than wanting to go home. Objective Vital Signs and I&Os Vital Signs Date Time Temp Pulse Resp B/P B/P Pulse O2 O2 Flow FiO2 Mean Ox Delivery Rate 02/06 913 62 136/74 02/06 0912 62 136/74 02/06 0640 98.3 62 20 136/74 98 02/05 1955 99.4 72 16 142/80 97 02/05 1830 98.5 68 20 140/80 98 Room Air Intake & Output 02/06 0400 02/05 04002/04 0400 Intake Total 200 870 360 800 600 Output Total 900 Balance 200 -30 360 800 600 Intake, IV 110 0 Intake, Oral 200 760 360 800 600 Number 0 Bowel Movements Output, Urine 900 Patient 199 lb 198 lb Weight Physical Exam: General: Well-developed white male in NAD Skin: No rash or jaundice HEENT: Conjunctivae pink, sclerae anicteric, mucous membranes moist Neck: Without masses or thyromegaly, no supraclavicular or cervical adenopathy Chest: Clear to P&A Heart: Regular rate and rhythm without S3 or rub Abdomen: Soft and nontender without palpable masses or organomegaly Extremities: Without cyanosis; tr edema Neuro: Cognitively intact, no focal findings, no asterixis or myoclonus Results Pertinent Lab Results: Laboratory Tests 02/06 02/05 02/04 0640 0630 0920 Chemistry Sodium (137 - 145 mmol/L) 136 L 136 L 134 L Potassium (3.5 - 5.1 mmol/L) 4.6 4.6 4.2 Chloride (98 - 107 mmol/L) 103 101 100 Carbon Dioxide (22 - 30 mmol/L) 22 21 L 22 Anion Gap (5 - 16) 10 14 11 BUN (9 - 20 mg/dL) 49 H 52 H 43 H Creatinine (0.7 - 1.2 mg/dL) 6.4 *H 7.2 *H 6.4 *H Estimated GFR (>60 ml/min) 9 L 8 L 9 L BUN/Creatinine Ratio (7 - 25 %) 7.9 7.2 6.7 L Hematology CBC w Diff NO MAN DIFF REQ WBC (4.8 - 10.8 /CUMM) 8.8 RBC (4.70 - 6.10 /CUMM) 3.92 L Hgb (14.0 - 18.0 G/DL) 10.0 L Hct (42 - 52 %) 31.9 L MCV (80.0 - 94.0 FL) 81.3 MCH (27.0 - 31.0 PG) 25.5 L MCHC (33.0 - 37.0 G/DL) 31.4 L RDW (11.5 - 14.5 %) 15.7 H Plt Count (130 - 400 /CUMM) 368 MPV (7.4 - 10.4 FL) 8.8 Gran % (42.2 - 75.2 %) 71.3 Lymphocytes % (20.5 - 51.1 %) 20.4 L Monocytes % (1.7 - 9.3 %) 6.4 Eosinophils % (0 - 5 %) 1.5 Basophils % (0.0 - 2.0 %) 0.4 Absolute Granulocytes (1.4 - 6.5 /CUMM) 6.3 Absolute Lymphocytes (1.2 - 3.4 /CUMM) 1.8 Absolute Monocytes (0.10 - 0.60 /CUMM) 0.6 Absolute Eosinophils (0.0 - 0.7 /CUMM) 0.1 Absolute Basophils (0.0 - 0.2 /CUMM) 0
== END 2018-02-06 16:45 | DRG 637 ==
LOC: ERH 07:21 → 2NA 10:46 → ERHI 10:46 → ENRESERV 11:02 → ENTRNSPT 11:48 → EDTRNSPT 11:55 → EDTRNSPTSTS 11:55 → CMPTRNSPT 12:12 → CRI 12:16 → ENTRNSPT 02-03 15:03 → EDTRNSPTSTS 02-03 15:10 → CMPTRNSPT 02-03 15:46 → 2NA 02-03 15:54
PROVIDERS: Emergency Medicine; Physical Medicine & Rehabilitation Pain Medicine
PROC: 5A1D70Z Performance of Urinary Filtration, Intermittent, Less than 6 Hours Per Day (ICD-10-PCS; principal; 2018-02-02)
DX: E11.00 Type 2 diabetes mellitus with hyperosmolarity without nonketotic hyperglycemic-hyperosmolar coma (NKHHC) (principal); N18.6 End stage renal disease; I12.0 Hypertensive chronic kidney disease with stage 5 chronic kidney disease or end stage renal disease; E87.2 Acidosis; L97.429 Non-pressure chronic ulcer of left heel and midfoot with unspecified severity; T85.71XA Infection and inflammatory reaction due to peritoneal dialysis catheter, initial encounter; E11.610 Type 2 diabetes mellitus with diabetic neuropathic arthropathy; Z79.84 Long term (current) use of oral hypoglycemic drugs; E11.22 Type 2 diabetes mellitus with diabetic chronic kidney disease; Z99.2 Dependence on renal dialysis; W06.XXXA Fall from bed, initial encounter; Y92.003 Bedroom of unspecified non-institutional (private) residence as the place of occurrence of the external cause; E78.5 Hyperlipidemia, unspecified; E11.65 Type 2 diabetes mellitus with hyperglycemia; E21.3 Hyperparathyroidism, unspecified; D63.1 Anemia in chronic kidney disease; E11.621 Type 2 diabetes mellitus with foot ulcer; L53.8 Other specified erythematous conditions
CPT/HCPCS: 2NASP; CCU; 36415; 36592; 82436; 93005; 93010; J0885; J1644; J1815; J2997